=== PATIENT | female | born 1950 | race Caucasian/White ===

== ENCOUNTER 2017-07-16 10:16 | Inpatient (IN) ==
--- NOTE | 2017-07-16 10:59 | XRay Report ---
CLINICAL INFORMATION: Cough COMPARISON: 11/22/2016 FINDINGS: Heart size and mediastinum are unremarkable. Central pulmonary arteries are mildly enlarged suggesting pulmonary hypertension related to COPD. Right thoracotomy changes again noted There is moderate patchy airspace disease in the periphery of both lungs which is similar to the previous study seven months prior therefore likely fibrosis. Superimposed infection in the right upper lobe is possible. IMPRESSION: COPD changes with peripheral fibrosis throughout both lungs with possible superimposed infiltrate in right upper lobe. Consider repeat chest CT to compare to 2015 study to reassess the burden of parenchymal disease and the possibility of acute infiltrate. Interpreted and Authenticated by: Guille Alejandro 07/16/17
[2017-07-16] MEDS ORDERED: methylPREDNISolone SOD SUCC 125 MG/2 ML VIAL IV ONE (11:18)
[2017-07-16] MEDS ORDERED: IPRATROPIUM/ALBUTEROL 3 ML AMPUL.NEB NEB ONE ×2 (11:18→12:29)
[2017-07-16] MEDS ORDERED: LACTATED RINGERS 1,000 ML IV ONE (11:19)
[2017-07-16 11:22] LABS: Mean Cell Volume 89.3 fL (80.0-100.0); Mean Corpuscular Hemoglobin 30.4 pg (26.0-34.0); Platelet Count 371 K/mcL (140-440); RBC 4.68 M/mcL (4.00-5.20); Red Cell Distribution Width 14.4 % (11.5-14.5)
--- NOTE | 2017-07-16 11:22 | Emergency Department Note ---
SOB HPI - General Chief Complaint: Shortness of Breath/Dyspnea Stated Complaint: SOB worse last 4 days Time Seen by Provider: 07/16/17 10:55 Source: patient Mode of arrival: ambulatory Limitations: no limitations - History of Present Illness 58-year-old female with a history of Mycobacterium avium intracellulare infection about 30 years ago with subsequent shortness of breath that has been progressively getting worse over the course of the last 4 months, worse, so in the last 4 days. She feels like there is tightness of her chest, she feels like there is heaviness of her chest and she's having a difficult time breathing. Her O2 sats are still 96%, however, she is tachypneic and winded with any type of activity. She does have a history of pulmonary fibrosis, is being followed by the tightener [place] , Denies any productive phlegm, is occasionally bringing up some blood-tinged whitish sputum. She does have a best as well. History of Pseudomonas respiratory bronchiectasis. Exposed to passive smoke greater 10 years in the past.no fevers reported, she denies nausea, vomiting, denies cardiac issues. She never smoked . History of pulmonary fibrosis. MD Complaint: shortness of breath - Related Data Home Medications Medication Instructions Recorded Confirmed aspirin 81 mg tablet,delayed 81 mg PO QDAY tab 04/01/15 05/12/17 release fluticasone 500 mcg-salmeterol 50 2 inh INHALATION Q12H each 04/01/15 05/12/17 mcg/dose blistr powdr for inhalation ipratropium-albuterol 0.5 mg-3 3 ml INHALATION BID ml 04/01/15 05/12/17 mg(2.5 mg base)/3 mL nebulization soln predniSONE [Prednisone] 5 mg PO DAILY 08/19/15 05/12/17 tobramycin 300 mg/4 mL solution 300 mg INHALATION BID 08/05/16 05/12/17 for nebulization ciprofloxacin 500 mg tablet 500 mg PO Q12H 04/14/17 05/12/17 Previous Rx's Medication Instructions Recorded dextromethorphan-guaifenesin 10 10 ml PO Q4H PRN #240 ml 12/26/15 mg-100 mg/5 mL syrup hydrocortisone 1 % topical cream 1 applic TOPICAL BID #28 g 11/21/16 hydrochlorothiazide 12.5 mg tablet 12.5 mg PO QDAY #30 tab 12/17/16 lansoprazole 30 mg capsule,delayed 30 mg PO QDAY 90 Days 03/18/17 release hydrocortisone 2.5 % topical cream 1 applic TOPICAL BID-QID PRN #30 g 04/14/17 NS trazodone 50 mg tablet 50 mg PO QHS PRN #90 tab 06/12/17 Allergies Allergy/AdvReac Type Severity Reaction Status Date / Time aztreonam [From Azactam] Allergy Unknown Unknown Verified 05/12/17 16:47 budesonide [From Pulmicort] Allergy Unknown Unknown Verified 05/12/17 16:47 Diclofenac [From Voltaren] Allergy Unknown Rash Verified 05/12/17 16:47 doxycycline Allergy Unknown Rash Verified 05/12/17 16:47 Erythromycin Base Allergy Unknown Rash Verified 05/12/17 16:47 levofloxacin [From Levaquin] Allergy Unknown Rash Verified 05/12/17 16:47 lorazepam [From Ativan] Allergy Unknown Rash Verified 05/12/17 16:47 moxifloxacin [From Avelox] Allergy Unknown Unknown Verified 05/12/17 16:47 Penicillins Allergy Unknown Hives Verified 05/12/17 16:47 Sulfa (Sulfonamide Allergy Unknown Unknown Verified 05/12/17 16:47 Antibiotics) sulfamethoxazole Allergy Unknown Rash Verified 05/12/17 16:47 [From Septra] trimethoprim [From Septra] Allergy Unknown Rash Verified 05/12/17 16:47 Review of Systems All systems ED: reviewed and negative except as stated. Past Medical History - Past Medical History Source: nursing notes reviewed Medical history: Reports: COPD, other (recurrent bronchiectasis, 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) Surgical history ED: Reports: non-contributory Family history: Reports: no significant family history - Social History smoking status: Former smoker Alcohol use: Reports: None Physical Exam - General Limitations: no limitations General appearance: alert, in no apparent distress - Head Head exam: atraumatic - Eye Eye exam: Present: normal appearance, PERRL, EOMI - ENT ENT exam: normal exam, normal oropharynx, mucous membranes moist, TM's normal bilaterally - Neck Neck exam: Present: normal inspection, full ROM - Chest Chest inspection: Present: normal inspection - Respiratory Respiratory exam: Present: respiratory distress, wheezes - Cardiovascular Cardiovascular exam: Present: regular rate, normal heart sounds - Abdominal Exam Abdominal exam: Present: soft. Absent: distention - Extremities Exam Extremities exam: Present: normal inspection - Neurological Exam Neurological exam: Present: alert, oriented X3 - Psychiatric Psychiatric exam: Present: normal affect - Skin Skin exam: Present: warm, dry, intact Course Vital Signs Temperature 98.0 F 07/16/17 10:17 Pulse Rate 76 07/16/17 10:17 Respiratory Rate 22 07/16/17 10:17 Blood Pressure 126/60 07/16/17 10:17 Pulse Oximetry (%) 96 07/16/17 10:17 Temperature 98.0 F 07/16/17 10:17 Pulse Rate 70 07/16/17 12:34 Respiratory Rate 24 H 07/16/17 12:34 Blood Pressure 121/62 07/16/17 12:31 Pulse Oximetry (%) 92 07/16/17 12:34 Shortness of Breath/Dyspnea - MDM Narrative Medical decision making narrative: Her white blood cell count was 18,000, chest x-ray consistent with pulmonary fibrosis, her peak flow was only 130 with significant wheezing. We did start on Solu-Medrol as well as breathing treatments, this point she will need to be hospitalized for COPD exacerbation. Her troponin was negative, proBNP slightly elevated. - Lab Data Result diagrams: 07/16/17 10:42 07/16/17 10:42 Lab Results 07/16/17 07/16/17 07/16/17 Range/Units 10:42 10:42 10:42 WBC 18.3 H (4.5-11.0) K/mcL RBC 4.68 (4.00-5.20) M/mcL Hgb 14.2 (12.0-15.0) g/dL Hct 41.8 (36.0-48.0) % MCV 89.3 (80.0-100.0) fL MCH 30.4 (26.0-34.0) pg MCHC 34.0 (31.0-36.0) g/dL RDW 14.4 (11.5-14.5) % Plt Count 371 (140-440) K/mcL MPV 8.4 (7.4-10.4) fL Total Counted 100 Seg Neutrophils % 90 H (38-78) % Band Neutrophils % 4 (0-10) % Lymphocytes % 4 L (15-49) % Monocytes % (Manual) 1 (1-12) % Eosinophils % (Manual) 1 (0-7) % WBC Morphology Abnorm A (NORMAL) Toxic Granulation Few A (NONE SEEN) Platelet Estimate Normal (NORMAL) RBC Morphology Normal (NORMAL) Sodium 133 (133-145) mmol/L Potassium 3.4 (3.3-5.1) mmol/L Chloride 97 (96-108) mmol/L Carbon Dioxide 21 L (22-30) mmol/L Anion Gap 15.0 (8-16) BUN 14 (8-23) mg/dl Creatinine 0.9 (0.6-1.1) mg/dl GFR Calculation 66 Glucose 125 H (70-105) mg/dL Calcium 9.0 (8.6-10.4) mg/dl Total Bilirubin 0.5 (0.0-1.0) mg/dL AST 11 (0-37) U/l ALT 8 (0-40) U/l Alkaline Phosphatase 42 (39-117) U/L Troponin T < 0.01 (0-0.03) ng/ml C-Reactive Protein 4.4 H (0.0-0.8) mg/dl NT-Pro-B Natriuret Pep (0-125) pg/ml Total Protein 6.5 (5.9-8.4) gm/dL Albumin 3.9 (3.2-5.2) gm/dL Globulin 2.6 (2.2-3.7) gm/dL Albumin/Globulin Ratio 1.5 (1.0-2.3) 07/16/17 Range/Units 10:42 WBC (4.5-11.0) K/mcL RBC (4.00-5.20) M/mcL Hgb (12.0-15.0) g/dL Hct (36.0-48.0) % MCV (80.0-100.0) fL MCH (26.0-34.0) pg MCHC (31.0-36.0) g/dL RDW (11.5-14.5) % Plt Count (140-440) K/mcL MPV (7.4-10.4) fL Total Counted Seg Neutrophils % (38-78) % Band Neutrophils % (0-10) % Lymphocytes % (15-49) % Monocytes % (Manual) (1-12) % Eosinophils % (Manual) (0-7) % WBC Morphology (NORMAL) Toxic Granulation (NONE SEEN) Platelet Estimate (NORMAL) RBC Morphology (NORMAL) Sodium (133-145) mmol/L Potassium (3.3-5.1) mmol/L Chloride (96-108) mmol/L Carbon Dioxide (22-30) mmol/L Anion Gap (8-16) BUN (8-23) mg/dl Creatinine (0.6-1.1) mg/dl GFR Calculation Glucose (70-105) mg/dL Calcium (8.6-10.4) mg/dl Total Bilirubin (0.0-1.0) mg/dL AST (0-37) U/l ALT (0-40) U/l Alkaline Phosphatase (39-117) U/L Troponin T (0-0.03) ng/ml C-Reactive Protein (0.0-0.8) mg/dl NT-Pro-B Natriuret Pep 844.4 H (0-125) pg/ml Total Protein (5.9-8.4) gm/dL Albumin (3.2-5.2) gm/dL Globulin (2.2-3.7) gm/dL Albumin/Globulin Ratio (1.0-2.3) Disposition Pt seen by CUSTOMER SUPPORT ANALYST/PA only: No Clinical Impression: Acute exacerbation of chronic obstructive airways disease, Cough Disposition: Xfer As Inpt ([facility]) Condition: Fair Referrals: Brooklynn Noble DO [Primary Care Provider] -
[2017-07-16] MEDS ORDERED: LACTATED RINGERS 1,000 ML IV SCH (11:30)
[2017-07-16 11:44] LABS: ALT/SGPT 8 U/l (0-40); Albumin 3.9 gm/dL (3.2-5.2); Albumin/Globulin Ratio 1.5 (1.0-2.3); Alkaline Phosphatase 42 U/L (39-117); Blood Urea Nitrogen 14 mg/dl (8-23); C-Reactive Protein 4.4 mg/dl (0.0-0.8)
[2017-07-16 11:54] LABS: Band Neutrophils % 4 % (0-10); Eosinophils % (Manual) 1 % (0-7); Lymphocytes % 4 % (15-49); Monocytes % (Manual) 1 % (1-12); Platelet Estimate NORMAL (NORMAL); RBC Morphology NORMAL (NORMAL); Segmented Neutrophils % 90 % (38-78); Toxic Granulation FEW (NONE SEEN)
[2017-07-16 11:56] LABS: proBNP 844.4 pg/ml (0-125)
[2017-07-16] MEDS ORDERED: LEVOFLOXACIN 500 MG/100 ML BAG IV ONE (12:43)
[2017-07-16] MEDS ORDERED: AZITHROMYCIN 500 MG in DEXTROSE 5% IN WATER 250 ML IV ONE (13:12)
[2017-07-16] MEDS ORDERED: cefTRIAXone 1 GM in DEXTROSE 5% IN WATER 50 ML IV ONE (13:12)
--- NOTE | 2017-07-16 13:51 | Internal Med History&Physical ---
Medical - H&P: HPI Patient information: Note initiated : 07/16/17 at 1:46 pm Patient: Samanta Christopher 66 y/o F admitted on for SOB, Worse Last 4 Days. History of present illness: Ms. Christopher is a 66 year old female with a distant history of Mycobacterium avium infection, leading to chronic bronchiectasis. She has also previously been diagnosed with Pseudomonas pneumonia as well as aspergillosis. She was in her normal state of health until sometime in March of this year, when she started to have more trouble with her breathing. She says it seems like her breathing is gradually gotten worse over the course of the summer, and then 4 days ago has gotten quite severe. She reports severe dyspnea with exertion, to the point where she is just afraid to move at all. She says she does not have as much trouble breathing lying down, but notes that she takes trazodone to help her sleep. Almost every night now she is waking up during the night with coughing spells. She and her both say that she was so short of breath today, that she felt like she was just going to stop breathing altogether. [place] the [place] was really hard on her, so she spent most of her time indoors. She denies any recent fever. She only occasionally feels chilled. She says in the past if she has had Pseudomonas, she has very frequent chills. She does have a headache with coughing, and she and her both say that she has been coughing constantly. The cough is minimally productive, although this morning she did bring up some blood-streaked sputum. In the emergency room she was found to be severely dyspneic, although not overtly hypoxic. She has marked leukocytosis. BNP is also elevated at about 7 times normal. CRP is elevated. Otherwise, she denies dizziness, new eye or ear symptoms. She does have some sinus congestion and postnasal drip. She denies swollen glands, chest pain or palpitations, abdominal pain, nausea or vomiting, diarrhea or constipation, dysuria. Medical History Rectal bleeding (Acute) Acid reflux (Chronic) Allergic bronchopulmonary aspergillosis (Chronic) Allergic rhinitis (Chronic) Arthritis (Chronic) 03/26/2014 Asthma (Chronic) 03/26/2014 Atherosclerosis, generalized (Chronic) Bronchiectasis (Chronic) CF testing negative 2. COPD (chronic obstructive pulmonary disease) (Chronic) Hyperlipidemia (Chronic) Hypertension (Chronic) Impaired fasting glucose (Chronic) Osteoporosis (Chronic) 06/24/2013 Tuberculosis, pulmonary (Resolved) M-Avium Adenomatous polyp (Inactive) With high grade dyslplasia near syncope (Inactive) acute episode likely from amlodipine, but hr was 52, and presyncope was releated to some activity. symptoms have since resolve,d and pt has no pedal edema, no loud p2, plan to monitor. Get echo if symptoms recur to r/o Pulmonary hypertension. Osteopenia (Inactive) 04/27/2014 Pneumonia (Inactive) Pseudomonas infection. Aspergillosis. Symptomatic menopausal or female climacteric states (Inactive) 01/05/2014 Wheezing (Inactive) Surgical History History of colonoscopy (Inactive) 06/09/2014 - Dr. Booker History of esophagogastroduodenoscopy (Inactive) 12/07/2009 History of lung biopsy (Inactive) 1985, 1986 S/P partial hysterectomy (Inactive) Ovaries retained Medication List aspirin 81 mg PO QDAY dextromethorphan-guaifenesin 10-100 mg/5 mL 10 mL PO Q4H PRN fluticasone-salmeterol 500-50 mcg/dose 2 inhalations Inhalation Q12H hydrochlorothiazide 12.5 mg PO QDAY hydrocortisone 1% (Anti-Itch (hydrocortisone)) 1 applic Topical BID hydrocortisone 2.5% 1 applic Topical BID-QID PRN NS ipratropium-albuterol 0.5 mg-3 mg(2.5 mg base)/3 mL 3 mL Inhalation BID Saline nebs twice daily. Percussion vest generally used 1-2 times a day. lansoprazole (Prevacid) 30 mg PO QDAY 90 days prednisone 5 mg PO DAILY trazodone 50 mg PO QHS 90 days PRN Allergies/Adverse Reactions aztreonam [From Azactam] Allergy (Unknown, Verified 05/12/17 16:47) Unknown budesonide [From Pulmicort] Allergy (Unknown, Verified 05/12/17 16:47) Unknown Diclofenac [From Voltaren] Allergy (Unknown, Verified 05/12/17 16:47) Rash doxycycline Allergy (Unknown, Verified 05/12/17 16:47) Rash Erythromycin Base Allergy (Unknown, Verified 05/12/17 16:47) Rash levofloxacin [From Levaquin] Allergy (Unknown, Verified 05/12/17 16:47) Rash lorazepam [From Ativan] Allergy (Unknown, Verified 05/12/17 16:47) Rash moxifloxacin [From Avelox] Allergy (Unknown, Verified 05/12/17 16:47) Unknown Penicillins Allergy (Unknown, Verified 05/12/17 16:47) Hives Sulfa (Sulfonamide Antibiotics) Allergy (Unknown, Verified 05/12/17 16:47) Unknown sulfamethoxazole [From Septra] Allergy (Unknown, Verified 05/12/17 16:47) Rash trimethoprim [From Septra] Allergy (Unknown, Verified 05/12/17 16:47) Rash Family History Father Essential hypertension Mother Malignant neoplasm of breast Grandmother Malignant neoplasm of liver Cerebrovascular accident Maternal/Paternal Social History The patient says she smoked for 1 year in college, and has not smoked since then , but apparently did live with a smoker for a number of years. She drinks alcohol only occasionally. She does not use drugs. She now lives with her second . Between them they have 4 children. None of them live in town. She does not think she has ever done a living will. Medical - H&P: Meds Home Medications Medication Instructions Recorded Confirmed Type aspirin 81 mg tablet,delayed 81 mg PO QDAY tab 04/01/15 07/16/17 History release fluticasone 500 mcg-salmeterol 50 2 inh INHALATION Q12H each 04/01/15 07/16/17 History mcg/dose blistr powdr for inhalation ipratropium-albuterol 0.5 mg-3 3 ml INHALATION BID ml 04/01/15 07/16/17 History mg(2.5 mg base)/3 mL nebulization soln predniSONE [Prednisone] 5 mg PO DAILY 08/19/15 07/16/17 History dextromethorphan-guaifenesin 10 10 ml PO Q4H PRN #240 ml 12/26/15 07/16/17 Rx mg-100 mg/5 mL syrup hydrocortisone 1 % topical cream 1 applic TOPICAL BID #28 g 11/21/16 07/16/17 Rx hydrochlorothiazide 12.5 mg tablet 12.5 mg PO QDAY #30 tab 12/17/16 07/16/17 Rx lansoprazole 30 mg capsule,delayed 30 mg PO QDAY 90 Days 03/18/17 07/16/17 Rx release hydrocortisone 2.5 % topical cream 1 applic TOPICAL BID-QID PRN #30 g 04/14/17 07/16/17 Rx NS trazodone 50 mg tablet 50 mg PO QHS PRN #90 tab 06/12/17 07/16/17 Rx Allergies Allergy/AdvReac Type Severity Reaction Status Date / Time aztreonam [From Azactam] Allergy Unknown Unknown Verified 05/12/17 16:47 budesonide [From Pulmicort] Allergy Unknown Unknown Verified 05/12/17 16:47 Diclofenac [From Voltaren] Allergy Unknown Rash Verified 05/12/17 16:47 doxycycline Allergy Unknown Rash Verified 05/12/17 16:47 Erythromycin Base Allergy Unknown Rash Verified 05/12/17 16:47 levofloxacin [From Levaquin] Allergy Unknown Rash Verified 05/12/17 16:47 lorazepam [From Ativan] Allergy Unknown Rash Verified 05/12/17 16:47 moxifloxacin [From Avelox] Allergy Unknown Unknown Verified 05/12/17 16:47 Penicillins Allergy Unknown Hives Verified 05/12/17 16:47 Sulfa (Sulfonamide Allergy Unknown Unknown Verified 05/12/17 16:47 Antibiotics) sulfamethoxazole Allergy Unknown Rash Verified 05/12/17 16:47 [From Septra] trimethoprim [From Septra] Allergy Unknown Rash Verified 05/12/17 16:47 Medical - H&P: Exam - Constitutional Vitals: Temp Pulse Resp BP Pulse Ox 98.0 F 75 21 122/60 97 07/16/17 10:17 07/16/17 13:12 07/16/17 13:12 07/16/17 12:46 07/16/17 13:12 Respirations range from a rate of 13-26, and are very labored at times. However O2 saturations are 96% on room air. Patient is a very slender, somewhat frail-appearing female, who seems rather indecisive about how aggressive she wants her care to be. Head: Normocephalic, atraumatic. Eyes: PERRLA, EOMI, anicteric. Ears: TMs and canals are clear. Pharynx: Is clear. Teeth are in good repair. Neck: Is supple, without lymphadenopathy, JVD, thyromegaly, bruits. Cardiac exam: Shows regular rate and rhythm with normal S1 and S2, without murmurs, rubs, gallops. Lungs: She has diffuse soft wheezes throughout both lung valerio. She has minimal accessory muscle use at this time. No definite crackles or rhonchi are noted. Abdomen: Is soft and nontender with no obvious masses. Bowel sounds are active. Extremities: Show no cyanosis, clubbing, edema. Skin exam: Does not show rashes or other worrisome lesions. Neurologic exam: Is grossly nonfocal. Medical - H&P: Reslt - Labs CBC & Chem 7: 07/16/17 10:42 07/16/17 10:42 Labs: Short CBC 07/16/17 Range/Units 10:42 WBC 18.3 H (4.5-11.0) K/mcL Hgb 14.2 (12.0-15.0) g/dL Hct 41.8 (36.0-48.0) % Plt Count 371 (140-440) K/mcL BMP 07/16/17 10:42 Sodium 133 Potassium 3.4 Chloride 97 Carbon Dioxide 21 L BUN 14 Creatinine 0.9 Glucose 125 H Calcium 9.0 Cardiac Enzymes 07/16/17 Range/Units 10:42 Troponin T < 0.01 (0-0.03) ng/ml Liver Function 07/16/17 Range/Units 10:42 Total Bilirubin 0.5 (0.0-1.0) mg/dL AST 11 (0-37) U/l ALT 8 (0-40) U/l Alkaline Phosphatase 42 (39-117) U/L Albumin 3.9 (3.2-5.2) gm/dL July 16: CBC: White blood cell count 18,300, hemoglobin 14, hematocrit 41, 90% neutrophils, a few toxic granulations. Chemistry panel: Notable for bicarb of 21, glucose 125 CRP is elevated at 4.4 BNP is elevated at 844 Chest x-ray: COPD changes with peripheral fibrosis throughout both lungs with possible superimposed infiltrate in the right upper lobe. Consider repeat chest CT to reassess burden of parenchymal disease and acute infiltrate. Next EKG: Shows normal sinus rhythm with a rate of about 70, normal axis, no acute ST -T changes. Medical - H&P: A/P (1) Acute exacerbation of chronic obstructive airways disease Current visit: Yes Status: Acute (2) Bronchiectasis Current visit: No Status: Chronic (3) Hypertension Current visit: No Status: Chronic (4) Dyspnea Current visit: No Status: Chronic - Narrative A/P Narrative: #1. Pulmonary/infectious disease. Patient presents with worsening dyspnea, and depressed peak flow. She may just have a COPD exacerbation, or worsening of her bronchiectasis and pulmonary fibrosis, or superimposed infection. Chest x-ray does suggest new right upper lobe infiltrate. Patient also presents with significant leukocytosis and elevated BNP. -Admit to telemetry for closer monitoring. -Blood and sputum cultures. -Cover empirically with Zithromax for atypicals, and cefepime for broad coverage including Pseudomonas. -Duo nebs, as needed albuterol, oxygen as needed. -IV steroids. -Check follow-up ABG, d-dimer. Consider follow-up chest CT. -They can bring in her percussion vest from home to use here. -I will try to contact her language interpreter, Dr. Greg Tobias in [place], [place] - 2. Cardiac. Patient presents with dyspnea and elevated BNP. She does have some risk factors for coronary disease. -Consider echocardiogram if she has not had one recently. 3. CODE STATUS: It sounds like her wants her to be full code for the time being, and the patient is just not really willing to make a definite decision. Her will act as her POA. 4. DVT prophylaxis: Subcu Lovenox 5. History of hypertension. Continue HCTZ. Continue aspirin. 6. Hyperlipidemia. 7. History of impaired fasting glucose. 8. History of osteoporosis. 9. GI. History of GERD. Continue Prevacid. 10. History of insomnia. Continue as needed trazodone. Approximately 60 minutes was spent this evening, reviewing the patient's case with the ER MD, reviewing her records and test results, interviewing and examining her, reviewing plan of care with the patient and her , and writing orders.
[2017-07-16] MEDS ORDERED: ALBUTEROL SULFATE 2.5 MG/3 ML NEBULIZER NEB PRN (15:24)
[2017-07-16] MEDS ORDERED: ACETAMINOPHEN 325 MG TABLET PO PRN (15:24)
[2017-07-16] MEDS ORDERED: IMIPENEM/CILASTATIN SODIUM 500 MG in 0.9 % SODIUM CHLORIDE 100 ML IV SCH (15:24)
[2017-07-16] MEDS ORDERED: DOCUSATE SODIUM 100 MG CAPSULE PO PRN (15:24)
[2017-07-16] MEDS ORDERED: ONDANSETRON 4 MG/2 ML VIAL IV PRN (15:24)
[2017-07-16] MEDS ORDERED: MAGNESIUM HYDROXIDE 30 ML ORAL.SUSP PO PRN (15:24)
[2017-07-16] MEDS ORDERED: traZODone HCL 50 MG TABLET PO PRN (16:07)
[2017-07-16] MEDS ORDERED: HYDROCORTISONE CRM 2.5% TUBE 30GM TOPICAL PRN (16:07)
[2017-07-16] MEDS ORDERED: guaiFENesin/DEXTROMETHORPHAN ORAL SOL PO PRN (16:11)
[2017-07-16] MEDS: CEFEPIME 1 GM in DEXTROSE 5% IN WATER 50 ML IV SCH ×2 (17:39→21:22)
[2017-07-16] MEDS: BUDESONIDE 0.5 MG/2 ML AMPUL.NEB NEB SCH (19:34)
[2017-07-16] MEDS: IPRATROPIUM/ALBUTEROL 3 ML AMPUL.NEB NEB SCH (19:34)
[2017-07-16] MEDS: methylPREDNISolone SOD SUCC 125 MG/2 ML VIAL IV SCH (21:22)
[2017-07-17] MEDS: IPRATROPIUM/ALBUTEROL 3 ML AMPUL.NEB NEB SCH ×4 (00:15→20:30)
[2017-07-17 05:40] LABS: Basophils # (Auto) 0 K/mcL (0.0-0.3); Basophils % (Auto) 0 % (0.0-2.0); Eosinophils # (Auto) 0 K/mcL (0.0-0.7); Eosinophils % (Auto) 0 % (0.0-7.0); Granulocytes % (Auto) 94.3 % (38.0-78.0); Lymphocytes # (Auto) 0.6 K/mcL (1.5-4.8); Lymphocytes % (Auto) 4.7 % (15.5-49.0); Mean Cell Volume 89.9 fL (80.0-100.0); Mean Corpuscular HGB Conc 33.4 g/dL (31.0-36.0); Monocytes # (Auto) 0.1 K/mcL (0.1-0.9); Platelet Count 371 K/mcL (140-440); RBC 4.69 M/mcL (4.00-5.20); Red Cell Distribution Width 14.6 % (11.5-14.5)
[2017-07-17 05:54] LABS: ALT/SGPT 6 U/l (0-40); Albumin 3.7 gm/dL (3.2-5.2); Albumin/Globulin Ratio 1.3 (1.0-2.3); Alkaline Phosphatase 42 U/L (39-117); Bilirubin,Direct < 0.2 mg/dL (0.0-0.3); Blood Urea Nitrogen 13 mg/dl (8-23); Gamma Glutamyl Transpeptidase 10 U/L (5-36); Magnesium 2.3 mg/dL (1.6-2.5); Uric Acid 3.2 mg/dL (2.5-8.0)
[2017-07-17] MEDS: CEFEPIME 1 GM in DEXTROSE 5% IN WATER 50 ML IV SCH ×3 (05:55→21:25)
--- NOTE | 2017-07-17 06:47 | XRay Report ---
CLINICAL INFORMATION: Dyspnea COMPARISON: 07/16/2017 FINDINGS: Heart size and mediastinum are normal. Mild enlargement central pulmonary arteries suggesting pulmonary hypertension related to COPD noted. Scattered fibrotic changes in the periphery of both lungs again noted. There is no definite superimposed right upper lobe infiltrate IMPRESSION: COPD changes with patchy peripheral fibrosis demonstrating long-term stability. No definite superimposed acute infiltrate Interpreted and Authenticated by: Guille Alejandro 07/17/17
[2017-07-17] MEDS ORDERED: PANTOPRAZOLE 40 MG TABLET PO SCH (07:30)
[2017-07-17] MEDS: BUDESONIDE 0.5 MG/2 ML AMPUL.NEB NEB SCH ×2 (07:35→20:31)
[2017-07-17] MEDS: methylPREDNISolone SOD SUCC 125 MG/2 ML VIAL IV SCH ×3 (07:53→21:25)
[2017-07-17] MEDS ORDERED: POTASSIUM CHLORIDE 20 MEQ TABLET PO SCH (08:00)
[2017-07-17] MEDS ORDERED: ENOXAPARIN 40 MG/0.4 ML SYRINGE SQ SCH (09:00)
[2017-07-17] MEDS ORDERED: HYDROCHLOROTHIAZIDE 12.5 MG CAPSULE PO SCH (09:00)
[2017-07-17] MEDS ORDERED: ASPIRIN 81 MG TAB.CHEW PO SCH (09:00)
[2017-07-17] MEDS ORDERED: AZITHROMYCIN 500 MG in DEXTROSE 5% IN WATER 250 ML IV SCH (10:00)
--- NOTE | 2017-07-17 10:30 | Internal Med Progress Note ---
Medical - PN: Subj Patient information: Note initiated : 07/17/17 at 10:30 am Patient: Samanta Christopher 66 y/o F admitted on 07/16/17 for SOB, Worse Last 4 Days. Interval history: July 16, 2017: History of present illness: Ms. Christopher is a 66 year old female with a distant history of Mycobacterium avium infection, leading to chronic bronchiectasis. She has also previously been diagnosed with Pseudomonas pneumonia as well as aspergillosis. She was in her normal state of health until sometime in March of this year, when she started to have more trouble with her breathing. She says it seems like her breathing is gradually gotten worse over the course of the summer, and then 4 days ago has gotten quite severe. She reports severe dyspnea with exertion, to the point where she is just afraid to move at all. She says she does not have as much trouble breathing lying down, but notes that she takes trazodone to help her sleep. Almost every night now she is waking up during the night with coughing spells. She and her both say that she was so short of breath today, that she felt like she was just going to stop breathing altogether. [place] the [place] was really hard on her, so she spent most of her time indoors. She denies any recent fever. She only occasionally feels chilled. She says in the past if she has had Pseudomonas, she has very frequent chills. She does have a headache with coughing, and she and her both say that she has been coughing constantly. The cough is minimally productive, although this morning she did bring up some blood-streaked sputum. In the emergency room she was found to be severely dyspneic, although not overtly hypoxic. She has marked leukocytosis. BNP is also elevated at about 7 times normal. CRP is elevated. Otherwise, she denies dizziness, new eye or ear symptoms. She does have some sinus congestion and postnasal drip. She denies swollen glands, chest pain or palpitations, abdominal pain, nausea or vomiting, diarrhea or constipation, dysuria. July 17: Today, the patient notes she is feeling less short of breath. She is still coughing, and says she rarely brings up just a tiny bit of phlegm. She feels a little more energetic today, but says that is likely due to the steroids. Her did bring in the percussion vest, so she has been using that as well. She was able to get up and walk in the hallway with physical therapy today, and reportedly did quite well, without significant dyspnea. Otherwise, she notes that she tends to feel warm, due to the steroids. She denies fever chills, chest pain or palpitations, GI or symptoms. - Constitutional Vitals: Vital Signs Temp Pulse Resp BP Pulse Ox 99.0 F H 76 20 122/68 97 07/17/17 08:07 07/17/17 08:07 07/17/17 08:07 07/17/17 08:07 07/17/17 08:07 Period Temp Pulse Resp BP Sys/Sow Pulse Ox Last 24 Hr 97.6 F-99.0 F 72-78 16-21 97-133/56-80 95-97 Intake and Output 07/16/17 07/17/17 07/17/17 21:59 05:59 13:59 Intake Total 300 / 1350 50 / 50 510 / 510 Output Total 600 / 600 650 / 650 250 / 250 Balance -300 / 750 -600 / -600 260 / 260 Weight 118 lb 14.4 oz Intake & Output: Intake & Output 07/16/17 07/17/17 07/17/17 21:59 05:59 13:59 Intake Total 300 / 1350 50 / 50 510 / 510 Output Total 600 / 600 650 / 650 250 / 250 Balance -300 / 750 -600 / -600 260 / 260 Weight 118 lb 14.4 oz Intake: IV 300 / 300 50 / 50 50 / 50 Zithromax 500 mg In 250 / 250 Dextrose 5% in Water 250 ml @ 250 mls/hr IV ONCE ONE Rx#:[id number] Maxipime 1 gm In Dextrose 50 / 50 50 / 50 50 / 50 5% in Water 50 ml @ 100 mls/hr IV Q8H [facility] Rx#: [id number] Oral 460 / 460 Output: Void Amount 600 / 600 650 / 650 250 / 250 Other: Meal Breakfast Percent of Meal Consumed 100% # Bowel Movements 1 T-max is 99.0 heart rate 86. Respiratory rate 20. Blood pressure 110/57. O2 saturation is 95-99% on room air. The patient is awake and alert, sitting up in bed. She seems a little bit anxious. Neck is supple without lymphadenopathy or JVD. Cardiac exam shows regular rate and rhythm. Lung exam shows diffuse soft wheezes in all lung valerio. No accessory muscle use is noted. Abdomen: Soft and nontender. Extremities show no edema. Neurologic exam is grossly nonfocal. Medical - PN: Obj Da - Labs CBC & Chem 7: 07/17/17 04:00 07/17/17 04:00 Labs: Abnormal Lab Results 07/17/17 07/17/17 04:00 04:00 WBC 13.8 H RDW 14.6 H Gran % 94.3 H Lymph % (Auto) 4.7 L Gran # 13.0 H Lymph # (Auto) 0.6 L Sodium 129 L Potassium 3.2 L Chloride 92 L Glucose 143 H July 17: Chest x-ray shows COPD changes with patchy peripheral fibrosis, without obvious acute infiltrate. July 16: Troponin is less than 0.012 ABG: On room air: PH 7.46, PCO2 32, PO2 79, bicarb 22, O2 saturation 96% Chest CT: Shows chronic bronchitis with extensive chronic tubular bronchiectasis with scattered interstitial fibrosis, overall with stable appearance since November 2014. No obvious superimposed infection. 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 Mild enlargement of the noncontrasted main pulmonary artery suggesting pulmonary hypertension. Nasal MRSA screen is negative. D-dimer is negative at less than 0.27 CBC: White blood cell count 18,300, hemoglobin 14, hematocrit 41, 90% neutrophils, a few toxic granulations. Chemistry panel: Notable for bicarb of 21, glucose 125 CRP is elevated at 4.4 BNP is elevated at 844 Chest x-ray: COPD changes with peripheral fibrosis throughout both lungs with possible superimposed infiltrate in the right upper lobe. Consider repeat chest CT to reassess burden of parenchymal disease and acute infiltrate. Next EKG: Shows normal sinus rhythm with a rate of about 70, normal axis, no acute ST -T changes. Meds: Medications Acetaminophen (Tylenol) 650 mg PO Q6HP PRN PRN Reason: PAIN/FEVER > 101 Last Admin: 07/17/17 06:39 Dose: 650 mg Albuterol Sulfate (Ventolin) 2.5 mg NEB Q4HRT PRN PRN Reason: Shortness Of Breath Or Wheezing Albuterol/Ipratropium (Duoneb) 3 ml NEB Q6HRT [facility] Last Admin: 07/17/17 07:35 Dose: 3 ml Aspirin (Aspirin) 81 mg PO DAILY [facility] Last Admin: 07/17/17 07:53 Dose: 81 mg Budesonide (Pulmicort) 0.5 mg NEB Q12 [facility] Last Admin: 07/17/17 07:35 Dose: 0.5 mg Docusate Sodium (Colace) 100 mg PO BID PRN PRN Reason: Constipation Enoxaparin Sodium (Lovenox) 40 mg SQ DAILY [facility] Last Admin: 07/17/17 07:53 Dose: 40 mg Guaifenesin (Robitussin Dm) 10 ml PO Q4HP PRN PRN Reason: Cough Hydrochlorothiazide (Oretic) 12.5 mg PO DAILY [facility] Last Admin: 07/17/17 07:53 Dose: 12.5 mg Hydrocortisone (Hc Crm 2.5%) 1 dose TOPICAL BID-QID PRN PRN Reason: anal pain Azithromycin 500 mg/ Dextrose 250 mls @ 250 mls/hr IV Q24H [facility] Stop: 07/19/17 10:59 Last Admin: 07/17/17 09:26 Dose: 250 mls/hr Cefepime HCl 1 gm/ Dextrose 50 mls @ 100 mls/hr IV Q8H [facility] Last Infusion: 07/17/17 09:26 Dose: Infused Magnesium Hydroxide (Milk Of Magnesia) 30 ml PO DAILYP PRN PRN Reason: Constipation Methylprednisolone Sodium Succinate (Solu-Medrol) 80 mg IV Q12 [facility] Last Admin: 07/17/17 07:53 Dose: 80 mg Ondansetron HCl (Zofran) 4 mg IV Q4HP PRN PRN Reason: Nausea And Vomiting Pantoprazole Sodium (Protonix) 40 mg PO QAMAC [facility] Last Admin: 07/17/17 07:26 Dose: 40 mg Potassium Chloride (Kdur) 20 meq PO BIDCC [facility] Last Admin: 07/17/17 07:53 Dose: 20 meq Trazodone HCl (Desyrel) 50 mg PO QHS PRN PRN Reason: insomnia Last Admin: 07/16/17 21:34 Dose: 50 mg Medical - PN: A/P - Time Spent With Patient Total time spent is greater than 50% in coordination of care (as documented) at patient's floor/unit and/or counseling patient: 25 - 35 minutes (1) Acute exacerbation of chronic obstructive airways disease Status: Acute Current Visit: Yes (2) Bronchiectasis Status: Chronic Current Visit: No (3) Hypertension Status: Chronic Current Visit: No (4) Dyspnea Status: Chronic Current Visit: No - Narrative A/P Narrative: #1. Pulmonary/infectious disease. Patient presents with worsening dyspnea, and depressed peak flow. She may just have a COPD exacerbation, or worsening of her bronchiectasis and pulmonary fibrosis, or superimposed infection. Chest x-ray does suggest new right upper lobe infiltrate. Patient also presents with significant leukocytosis and elevated BNP. -CT scan from last night, shows chronic bronchiectasis and fibrosis changes. Does not show definite new infiltrate. But does show pleural plaques, and also suggest pulmonary hypertension. I called her maid supervisor in [place], Dr. Tobias. I reviewed the case with him. He suspects this is more of a bronchiectasis exacerbation than pneumonia. He suggested keeping her on IV steroids for another day or so, and then put her on a very prolonged taper, starting with 40 mg a day 7 days, and then taper from there. He said we could probably discontinue IV antibiotics tomorrow. He strongly encouraged her to continue with her percussion vest at least twice a day every day, to help prevent exacerbations. He asked me to remind her that it took her a very long time to become sick, and she needs to remember that it will take just as long to get better, and she should try not to get frustrated. -Transfer to [facility] today, as she appears clinically stable. -Blood and sputum cultures are pending.. -Continue empiric Zithromax for atypicals, and cefepime for broad coverage including Pseudomonas, but probably discontinue tomorrow.. -Duo nebs, as needed albuterol, oxygen as needed. -IV steroids. -Continue percussion vest twice daily Case reviewed with Dr. Greg Tobias in [place], [place], of pulmonology. - 2. Cardiac. Patient presents with dyspnea and elevated BNP. She does have some risk factors for coronary disease. -Echocardiogram ordered, regarding possible pulmonary hypertension, and also elevated BNP. 3. CODE STATUS: It sounds like her wants her to be full code for the time being, and the patient is just not really willing to make a definite decision. Her will act as her POA. 4. DVT prophylaxis: Subcu Lovenox 5. History of hypertension. Continue HCTZ. Continue aspirin. 6. Hyperlipidemia. 7. History of impaired fasting glucose. 8. History of osteoporosis. Consider adding calcium and vitamin D supplementation, and also perhaps a multivitamin.. 9. GI. History of GERD. Continue Prevacid. 10. History of insomnia. Continue as needed trazodone. #11. Renal. Sodium and potassium are a bit low today. Because of this is uncertain. Replace potassium orally. Continue to monitor. This visit is taken approximately 35 minutes so far today, to review her test results, interview and examine her, review her case in detail with pulmonary, and write orders. Medical - PN: Qual - VTE Deep Vein Thrombosis/Pulmonary Embolism Present on Admission: No
[2017-07-17] MEDS ORDERED: guaiFENesin/DEXTROMETHORPHAN ORAL SOL PO PRN (11:51)
[2017-07-17] MEDS ORDERED: MAGNESIUM HYDROXIDE 30 ML ORAL.SUSP PO PRN (11:51)
[2017-07-17] MEDS ORDERED: ONDANSETRON 4 MG/2 ML VIAL IV PRN (11:51)
[2017-07-17] MEDS ORDERED: DOCUSATE SODIUM 100 MG CAPSULE PO PRN (11:51)
[2017-07-17] MEDS ORDERED: HYDROCORTISONE CRM 2.5% TUBE 30GM TOPICAL PRN (11:51)
[2017-07-17] MEDS ORDERED: traZODone HCL 50 MG TABLET PO PRN (11:51)
[2017-07-17] MEDS ORDERED: ALBUTEROL SULFATE 2.5 MG/3 ML NEBULIZER NEB PRN (11:51)
--- NOTE | 2017-07-17 12:05 | Cat Scan Report ---
CLINICAL INFORMATION: Dyspnea with known chronic Bronchiectasis. Evaluate for acute infiltrate COMPARISON: Chest CT from two years prior 08/29/2015 TECHNIQUE: 2.5 mm axial slices were obtained from the lung apices through the bases without intravenous contrast. Sagittal, coronal and axial reformatted images were processed and reviewed at bone, lung and soft tissue windows. 7 mm axial MIP images were also reconstructed. FINDINGS: Chronic bronchitis with extensive tubular bronchiectasis involving the segmental and subsegmental bronchi of both upper, right middle and lower lobes with scattered chronic peripheral tree-in-bud densities and nonspecific scarring - most prominent in the right upper lobe is again noted. The exam was very carefully compared to the the two prior chest CTs and there has been no significant change. There is no evidence of superimposed acute infiltrate. Scattered noncalcified pleural plaques throughout both lungs is unchanged - this can indicate prior asbestos exposure. Mediastinal windows show the noncontrasted thoracic aorta to be normal in contour and caliber. The central pulmonary arteries mildly enlarged: main pulmonary artery measuring 3 cm suggesting pulmonary hypertension related to chronic lung disease. There are no abnormal lymph nodes in the mediastinal hilar or axillary regions. Esophagus is normal. Thyroid is unremarkable. Bones and soft tissues the chest wall are normal IMPRESSION: 1. Chronic bronchitis with extensive chronic tubular bronchiectasis involving segmental and subsegmental bronchi of both upper, lower and right middle lobes with scattered nonspecific interstitial fibrosis all maintaining stability over two year (chest CT 12/01/2014) . There is no superimposed infection or other change 2. Scattered pleural plaque in both lungs also stable. This suggests possible asbestos exposure 3. Mild enlargement of the noncontrasted main pulmonary artery suggesting pulmonary hypertension related to chronic lung disease Interpreted and Authenticated by: Guille Alejandro 07/17/17
[2017-07-17] MEDS: ACETAMINOPHEN 325 MG TABLET PO PRN ×2 (12:25→21:37)
[2017-07-17] MEDS ORDERED: methylPREDNISolone SOD SUCC 125 MG/2 ML VIAL IV SCH ×2 (13:45→21:00)
[2017-07-17] MEDS: POTASSIUM CHLORIDE 20 MEQ TABLET PO SCH (18:22)
[2017-07-17] MEDS ORDERED: ZOLPIDEM 5 MG TABLET PO PRN (19:45)
[2017-07-17] MEDS ORDERED: diphenhydrAMINE 25 MG CAPSULE PO PRN (19:46)
[2017-07-17] MEDS: CALCIUM W/VIT D3 500 MG TABLET PO SCH (21:37)
[2017-07-18] MEDS: IPRATROPIUM/ALBUTEROL 3 ML AMPUL.NEB NEB SCH ×2 (02:11→07:15)
[2017-07-18] MEDS: CEFEPIME 1 GM in DEXTROSE 5% IN WATER 50 ML IV SCH (05:20)
[2017-07-18] MEDS: methylPREDNISolone SOD SUCC 125 MG/2 ML VIAL IV SCH (05:20)
[2017-07-18 05:40] LABS: Basophils # (Auto) 0 K/mcL (0.0-0.3); Basophils % (Auto) 0 % (0.0-2.0); Eosinophils # (Auto) 0 K/mcL (0.0-0.7); Eosinophils % (Auto) 0 % (0.0-7.0); Granulocytes % (Auto) 94.2 % (38.0-78.0); Lymphocytes # (Auto) 0.7 K/mcL (1.5-4.8); Lymphocytes % (Auto) 4.3 % (15.5-49.0); Mean Cell Volume 89.8 fL (80.0-100.0); Mean Corpuscular HGB Conc 33.4 g/dL (31.0-36.0); Monocytes # (Auto) 0.2 K/mcL (0.1-0.9); Monocytes % (Auto) 1.5 % (1.0-12.0); Platelet Count 400 K/mcL (140-440); RBC 4.72 M/mcL (4.00-5.20); Red Cell Distribution Width 14.6 % (11.5-14.5)
[2017-07-18 06:03] LABS: ALT/SGPT 9 U/l (0-40); Albumin 3.6 gm/dL (3.2-5.2); Albumin/Globulin Ratio 1.3 (1.0-2.3); Alkaline Phosphatase 39 U/L (39-117); Bilirubin,Direct < 0.2 mg/dL (0.0-0.3); Blood Urea Nitrogen 15 mg/dl (8-23); Gamma Glutamyl Transpeptidase 10 U/L (5-36); Magnesium 2.3 mg/dL (1.6-2.5); Uric Acid 2.4 mg/dL (2.5-8.0)
[2017-07-18] MEDS: BUDESONIDE 0.5 MG/2 ML AMPUL.NEB NEB SCH (07:15)
[2017-07-18] MEDS ORDERED: PANTOPRAZOLE 40 MG TABLET PO SCH (07:30)
[2017-07-18] MEDS: POTASSIUM CHLORIDE 20 MEQ TABLET PO SCH (08:17)
[2017-07-18] MEDS: CALCIUM W/VIT D3 500 MG TABLET PO SCH (08:18)
[2017-07-18] MEDS ORDERED: HYDROCHLOROTHIAZIDE 12.5 MG CAPSULE PO SCH (09:00)
[2017-07-18] MEDS ORDERED: ASPIRIN 81 MG TAB.CHEW PO SCH (09:00)
[2017-07-18] MEDS ORDERED: ENOXAPARIN 40 MG/0.4 ML SYRINGE SQ SCH (09:00)
[2017-07-18] MEDS ORDERED: AZITHROMYCIN 500 MG in DEXTROSE 5% IN WATER 250 ML IV SCH (10:00)
--- NOTE | 2017-07-18 10:05 | Discharge Summary ---
Medical - DS: Prov Patient information: Note initiated : 07/18/17 at 10:05 am Patient: Samanta Christopher 66 y/o F admitted on 07/16/17 for SOB, Worse Last 4 Days/COPD, Cough. Date of admission: 07/16/17 15:03 Discharge date: 07/18/17 Primary care physician: Brooklynn Noble DO Admitting clinician: Janice Garg Consults: 07/16/17 13:08 Consult to Physician [CONS] Stat Comment: Consulting Provider: Janice Garg Reason For Exam: Physician to Consult Telephone consultation with Dr. Tobias, pulmonology, in [place]. Attending physician on discharge: Janice Garg Medical - DS: Meds - Discharge Medications Prescriptions: Albuterol Sulfate [Proventil Hfa] 6.7 gm IH Q4HP PRN #1 [email or web address] PRN Reason: Shortness Of Breath Or Wheezing Cholecalciferol (Vitamin D3) [Vitamin D3] 1,000 unit PO QDAY #1 tab.chew predniSONE [Prednisone] 10 mg PO DAILY #70 tab Active and Home Medications: Discharge medications: Prednisone taper: 40 mg daily 7 days, then 30 mg daily 7, then 207 days, then 107 days. May be altered by physician. Vitamin D 1000 units daily Tylenol 650 mg every 6 hours as needed Albuterol inhaler 2 puffs every 4 hours as needed Trazodone 50 mg nightly as needed Prevacid 30 mg daily Duo nebs per nebulizer twice daily Hydrocortisone topical cream twice daily to 4 times daily as needed HCTZ 12.5 mg daily Advair 500-50 2 puffs every 12 hours Guaifenesin Dextromethorphan 10 mL every 4 hours as needed cough P Aspirin 81 mg daily She should probably stop using Benadryl at night for sleep, as this likely thickens her secretions. The same may be set for trazodone. We also discussed perhaps being tested for dairy allergy, as she eats a lot of dairy, and this may thicken her secretions as well. Previous medications: aspirin 81 mg tablet,delayed release 81 mg PO QDAY tab 04/01/15 [History Confirmed 07/16/17 Last Taken Unknown] fluticasone 500 mcg-salmeterol 50 mcg/dose blistr powdr for inhalation 2 inh INHALATION Q12H each 04/01/15 [History Confirmed 07/16/17 Last Taken Unknown] ipratropium-albuterol 0.5 mg-3 mg(2.5 mg base)/3 mL nebulization soln 3 ml INHALATION BID ml 04/01/15 [History Confirmed 07/16/17 Last Taken Unknown] predniSONE [Prednisone] 5 mg PO DAILY 08/19/15 [History Confirmed 07/16/17 Last Taken Unknown] dextromethorphan-guaifenesin 10 mg-100 mg/5 mL syrup 10 ml PO Q4H PRN #240 ml [Rx Confirmed 07/16/17 Last Taken Unknown] hydrocortisone 1 % topical cream 1 applic TOPICAL BID #28 g 11/21/16 [Rx Confirmed 07/16/17 Last Taken Unknown] hydrochlorothiazide 12.5 mg tablet 12.5 mg PO QDAY #30 tab 12/17/16 [Rx Confirmed 07/16/17 Last Taken Unknown] lansoprazole 30 mg capsule,delayed release 30 mg PO QDAY 90 Days #90 cap [Rx Confirmed 07/16/17 Last Taken Unknown] hydrocortisone 2.5 % topical cream 1 applic TOPICAL BID-QID PRN #30 g NS [Rx Confirmed 07/16/17 Last Taken Unknown] trazodone 50 mg tablet 50 mg PO QHS PRN #90 tab 06/12/17 [Rx Confirmed 07/16/17 Last Taken Unknown] Medical - DS: Hosp Hospital course: Mr. Christopher is a 66 year old F July 16, 2017: History of present illness: Ms. Christopher is a 66 year old female with a distant history of Mycobacterium avium infection, leading to chronic bronchiectasis. She has also previously been diagnosed with Pseudomonas pneumonia as well as aspergillosis. She was in her normal state of health until sometime in March of this year, when she started to have more trouble with her breathing. She says it seems like her breathing is gradually gotten worse over the course of the summer, and then 4 days ago has gotten quite severe. She reports severe dyspnea with exertion, to the point where she is just afraid to move at all. She says she does not have as much trouble breathing lying down, but notes that she takes trazodone to help her sleep. Almost every night now she is waking up during the night with coughing spells. She and her both say that she was so short of breath today, that she felt like she was just going to stop breathing altogether. [place] the [place] was really hard on her, so she spent most of her time indoors. She denies any recent fever. She only occasionally feels chilled. She says in the past if she has had Pseudomonas, she has very frequent chills. She does have a headache with coughing, and she and her both say that she has been coughing constantly. The cough is minimally productive, although this morning she did bring up some blood-streaked sputum. In the emergency room she was found to be severely dyspneic, although not overtly hypoxic. She has marked leukocytosis. BNP is also elevated at about 7 times normal. CRP is elevated. Otherwise, she denies dizziness, new eye or ear symptoms. She does have some sinus congestion and postnasal drip. She denies swollen glands, chest pain or palpitations, abdominal pain, nausea or vomiting, diarrhea or constipation, dysuria. July 17: Today, the patient notes she is feeling less short of breath. She is still coughing, and says she rarely brings up just a tiny bit of phlegm. She feels a little more energetic today, but says that is likely due to the steroids. Her did bring in the percussion vest, so she has been using that as well. She was able to get up and walk in the hallway with physical therapy today, and reportedly did quite well, without significant dyspnea. Otherwise, she notes that she tends to feel warm, due to the steroids. She denies fever chills, chest pain or palpitations, GI or symptoms. July 18: Hospital course: The patient was admitted and started on IV steroids as well as IV cefepime to cover for possible Pseudomonas. She has improved pretty steadily since then. I did review her case yesterday with her rooming house operator, Dr. Tobias, in [place]. He felt that this was more than likely a bronchiectasis exacerbation, rather than a superimposed infection. At his suggestion, we continued IV steroids yesterday and this morning, and will change booth attendant to oral steroids today. He strongly encourages her to continue with her percussion vest and saline nebs at least twice a day every day. Today, her breathing is a little better, but she has a persistent cough. This continues to be nonproductive. Continues to worry her. When I entered her room today, she was quite upset. She says that the nurse had told her that her white blood cell count was higher today, and she thought that meant that her pneumonia was getting worse. I explained to her that we are quite certain that her white blood cell count is elevated because of steroids, and not because of pneumonia. Her CAT scan did not show pneumonia. Otherwise, she denies fever chills, chest pain or palpitations. She continues to have mild dyspnea on exertion, although that seems better than on admission. She denies GI or symptoms. Exam: The patient is awake and alert, sitting up in bed. She seems a little bit anxious. Temperature 97.1. Heart rate 82. Respiratory rate 20. Pressure 145/79. O2 saturation is 96-98% on room air. Neck is supple without lymphadenopathy or JVD. Cardiac exam shows regular rate and rhythm. Lung exam shows scattered soft crackles, but is otherwise essentially clear. There is no sensory muscle use. Abdomen: Soft and nontender. Extremities show no edema. Neurologic exam is grossly nonfocal. Assessment and plan: #1. Pulmonary/infectious disease. Patient presented with worsening dyspnea, and depressed peak flow. She may just have a COPD exacerbation, or worsening of her bronchiectasis and pulmonary fibrosis, or superimposed infection. She did present with elevated white blood cell count and possible infiltrate on her chest x-ray, but subsequent CT did not confirm an infiltrate. -CT scan shows chronic bronchiectasis and fibrosis changes. Does not show definite new infiltrate. But does show pleural plaques, and also suggest pulmonary hypertension. I called her rooming house operator in [place], Dr. Tobias. I reviewed the case with him. He suspects this is more of a bronchiectasis exacerbation than pneumonia. He suggested keeping her on IV steroids for another day or so, and then put her on a very prolonged taper, starting with 40 mg a day 7 days, and then taper from there. He said we could probably discontinue IV antibiotics . He strongly encouraged her to continue with her percussion vest at least twice a day every day, to help prevent exacerbations. He asked me to remind her that it took her a very long time to become sick, and she needs to remember that it will take just as long to get better, and she should try not to get frustrated. -The patient was unable to produce sputum for a sputum sample. Blood cultures are negative so far. - 2. Cardiac. Patient presents with dyspnea and elevated BNP. She does have some risk factors for coronary disease. -Echocardiogram was ordered, regarding possible pulmonary hypertension, and also elevated BNP. This shows normal left ventricle with ejection fraction of 55%, mild mitral regurgitation. She does have elevated pulmonary artery pressure at 30 mmHg. She should have follow-up with her rooming house operator, to see if she needs further assessment for pulmonary hypertension. 3. CODE STATUS: It sounds like her wants her to be full code for the time being, and the patient is just not really willing to make a definite decision. Her will act as her POA. 4. DVT prophylaxis: Subcu Lovenox 5. History of hypertension. Continue HCTZ. Continue aspirin. 6. Hyperlipidemia. 7. History of impaired fasting glucose. Glucoses have been normal here, but may rise with her prednisone prescription. 8. History of osteoporosis. She believes her osteopenia has been stable. She does eat or drink dairy about 4 times a day. She does not take a vitamin D supplement, and does not know if her vitamin D level has been checked. We discussed she should probably be taking at least 1000 units of vitamin D per day. This might help prevent further bone loss, and also might help with her mood, as she seems prone to anxiety and depression. 9. GI. History of GERD. Continue Prevacid. 10. History of insomnia. Continue as needed trazodone. Patient reported she also uses Benadryl at home, but this would likely thicken her secretions, so I would recommend against this. She did receive 1 dose of Ambien here, which seemed to work pretty well for her. #11. Renal. Sodium and potassium are a bit low today. Because of this of this is uncertain. They be related to her fluids, antibiotics, steroids. Replaced potassium orally. Continue to monitor. I have asked her to check in with her primary care physician in the next 4 5 days. She believes she has an appointment with her rooming house operator in the next 1- 2 weeks. This visit is taken approximately 35 minutes so far today, to review her test results, interview and examine her, review her case in detail with both the patient and her , as well as staff, and write orders. Discharge diagnosis: Bronchiectasis exacerbation. Anxiety. Elevated BNP. - Time Spent with Patient Total time spent providing and/or coordinating discharge services: Greater than 30 minutes Medical - DS: Exam - Constitutional Vitals: Vital Signs Temp Pulse Pulse Resp BP BP Pulse Ox 07/18/17 08:00 97.1 F 20 145/79 96 07/18/17 07:20 67 16 98 07/18/17 04:00 98.3 F 73 16 146/78 99 07/17/17 23:36 98.4 F 74 14 136/74 97 07/17/17 20:32 97 07/17/17 20:00 98.3 F 79 18 120/70 97 07/17/17 19:30 79 18 07/17/17 16:00 97.6 F 68 18 124/65 98 07/17/17 13:55 86 20 07/17/17 12:33 86 110/57 99 07/17/17 10:57 98.6 F 20 110/57 99 Intake and Output 07/17/17 07/18/17 07/18/17 21:59 05:59 13:59 Intake Total 550 / 550 100 / 100 Balance 550 / 550 100 / 100 Intake: IV 50 / 50 100 / 100 Maxipime 1 gm In Dextrose 5% in 50 / 50 100 / 100 Water 50 ml @ 100 mls/hr IV Q8H [facility] Rx#:[id number] Oral 500 / 500 Other: Meal Dinner Percent of Meal Consumed 100% Feeding Ability Independent # Voids 1 2 # Bowel Movements 1 Weight 117 lb 6.4 oz Medical - DS: Data Labs on day of discharge: Labs from last 24 hours 07/18/17 07/18/17 04:00 04:00 WBC 16.8 H RBC 4.72 Hgb 14.2 Hct 42.4 MCV 89.8 MCH 30.0 MCHC 33.4 RDW 14.6 H Plt Count 400 MPV 8.4 Gran % 94.2 H Lymph % (Auto) 4.3 L [place] % (Auto) 1.5 Eos % (Auto) 0 Baso % (Auto) 0 Gran # 15.8 H Lymph # (Auto) 0.7 L [place] # (Auto) 0.2 Eos # (Auto) 0 Baso # (Auto) 0 Sodium 128 L Potassium 3.6 Chloride 91 L Carbon Dioxide 22 Anion Gap 15.0 BUN 15 Creatinine 0.6 GFR Calculation 94 Glucose 137 H Uric Acid 2.4 L Calcium 9.2 Phosphorus 2.7 Magnesium 2.3 Total Bilirubin 0.3 Direct Bilirubin < 0.2 GGT 10 AST 11 ALT 9 Alkaline Phosphatase 39 Lactate Dehydrogenase 149 Total Protein 6.3 Albumin 3.6 Globulin 2.7 Albumin/Globulin Ratio 1.3 Triglycerides 56 Preliminary micro results at discharge 07/16/17 13:00 Blood Culture - Preliminary Blood 07/16/17 13:08 Blood Culture - Preliminary Blood Blood cultures are negative so far. July 17: Chest x-ray shows COPD changes with patchy peripheral fibrosis, without obvious acute infiltrate. Echocardiogram: Shows pulmonary artery pressure of about 30 mmHg. Normal left ventricle, with ejection fraction 55%. Mild mitral regurgitation. July 16: Troponin is less than 0.012 ABG: On room air: PH 7.46, PCO2 32, PO2 79, bicarb 22, O2 saturation 96% Chest CT: Shows chronic bronchitis with extensive chronic tubular bronchiectasis with scattered interstitial fibrosis, overall with stable appearance since November 2014. No obvious superimposed infection. 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 Mild enlargement of the noncontrasted main pulmonary artery suggesting pulmonary hypertension. Nasal MRSA screen is negative. D-dimer is negative at less than 0.27 CBC: White blood cell count 18,300, hemoglobin 14, hematocrit 41, 90% neutrophils, a few toxic granulations. Chemistry panel: Notable for bicarb of 21, glucose 125 CRP is elevated at 4.4 BNP is elevated at 844 Chest x-ray: COPD changes with peripheral fibrosis throughout both lungs with possible superimposed infiltrate in the right upper lobe. Consider repeat chest CT to reassess burden of parenchymal disease and acute infiltrate. Next EKG: Shows normal sinus rhythm with a rate of about 70, normal axis, no acute ST -T changes. Medical - DS: A/P - Patient/Caregiver Discharge Instructions Activity: increase activity as tolerated Diet: Regular Diet Additional Instructions: 1. Bronchiectasis exacerbation. Please take prednisone, 40 mg each day, for 7 days, and then probably taper by 10 mg a day every week. Please verify this with your pulmonology office. Next Please continue to use her percussion vest and nebulized saline at least twice a day, as directed. Notify your doctors or come back to the emergency room for high fever, increased shortness of breath and cough. 2. History of osteopenia. Consider adding vitamin D 1-2000 units per day. Ask your primary care physician if your vitamin D level has been checked. 3. Have your lung doctor review your echocardiogram report, as he suggested that we check your pulmonary artery pressures. 4. Also, I would avoid taking Benadryl, and reconsider taking trazodone, as these can thicken your secretions, and make them harder to bring up. You may also want to be tested for dairy allergy, to be sure this is not also making your secretions thicker. Discharge medications: Prednisone taper: 40 mg daily 7 days, then 30 mg daily 7, then 207 days, then 107 days. May be altered by physician. Vitamin D 1000 units daily Tylenol 650 mg every 6 hours as needed Albuterol inhaler 2 puffs every 4 hours as needed Trazodone 50 mg nightly as needed Prevacid 30 mg daily Duo nebs per nebulizer twice daily Hydrocortisone topical cream twice daily to 4 times daily as needed HCTZ 12.5 mg daily Advair 500-50 2 puffs every 12 hours Guaifenesin Dextromethorphan 10 mL every 4 hours as needed cough P Aspirin 81 mg daily She should probably stop using Benadryl at night for sleep, as this likely thickens her secretions. The same may be set for trazodone. We also discussed perhaps being tested for dairy allergy, as she eats a lot of dairy, and this may thicken her secretions as well. Prescriptions: Albuterol Sulfate [Proventil Hfa] 6.7 gm IH Q4HP PRN #1 hfa.aer.ad PRN Reason: Shortness Of Breath Or Wheezing Cholecalciferol (Vitamin D3) [Vitamin D3] 1,000 unit PO QDAY #1 tab.chew predniSONE [Prednisone] 10 mg PO DAILY #70 tab - Problem Maintenance (1) Acute exacerbation of chronic obstructive airways disease Status: Acute (2) Bronchiectasis Status: Chronic Qualifiers: Bronchiectasis type: with acute exacerbation Qualified Code(s): J47.1 - Bronchiectasis with (acute) exacerbation (3) Hypertension Status: Chronic Qualifiers: Hypertension type: essential hypertension Qualified Code(s): I10 - Essential (primary) hypertension (4) Dyspnea Status: Chronic Qualifiers: Dyspnea type: dyspnea on exertion Qualified Code(s): R06.09 - Other forms of dyspnea - Follow up Plan Follow up with: Brooklynn Noble DO [Primary Care Provider] - Greg Tobias MD [Physician] - Disposition: Home, Self-Care Prognosis: Good Rehab Potential: Good Overall status at discharge: patient is progressing back to baseline Medical - DS: Qual - VTE Deep Vein Thrombosis/Pulmonary Embolism Present on Admission: No
== END 2017-07-18 11:45 | disposition home or self-care (01) | DRG 192 ==
LOC: ED 10:16 → ICU 15:03 → MEDSUR 07-18 06:10
PROVIDERS: ADMIT Internal Medicine; ATTEND Internal Medicine

== ENCOUNTER 2018-09-26 09:33 | Inpatient (IN) ==
[2018-09-26] MEDS ORDERED: IPRATROPIUM/ALBUTEROL 3 ML AMPUL.NEB NEB ONE ×2 (09:37→09:59)
--- NOTE | 2018-09-26 09:58 | XRay Report ---
HISTORY: Shortness of breath FINDINGS: Patient has moderate pulmonary fibrosis. There is an ill-defined alveolar opacity centrally in the right upper lobe. This was present on 03/27/18 and 07/17/17 and has slowly become worse. This is probably an area of active inflammation superimposed upon underlying scar. Patient also has documented bronchiectasis based on prior chest CT. No pleural effusion is present. The heart size is normal. There is elevation right hilum due to peripheral scarring and loss of lung parenchyma in the right upper lobe. There are surgical sutures in the right upper lobe. IMPRESSION: Moderate diffuse pulmonary fibrosis with superimposed active inflammatory process in the right upper lobe Interpreted and Authenticated by: Eduardo Caballero 09/26/18
[2018-09-26] MEDS ORDERED: methylPREDNISolone SOD SUCC 125 MG/2 ML VIAL IV ONE (09:59)
--- NOTE | 2018-09-26 09:59 | Emergency Department Note ---
SOB HPI - General Chief Complaint: Shortness of Breath/Dyspnea Stated Complaint: shortness of breath Time Seen by Provider: 09/26/18 09:44 Source: patient Mode of arrival: ambulatory Limitations: no limitations - History of Present Illness This pleasant 68-year-old female with a long-standing history of pulmonary disease who was brought by her in private car due to onset of upper respiratory infection yesterday that became worse with shortness of breath during the night and then this morning very difficult catching her breath. She had phlegm during the night. She is uncertain if it was colored. She feels hoarse of voice but she attributes this due to the cough. She does have accompanying runny nose but no sore throat. She has not had any fevers that she knows of but has felt some chills in the past 24 hours but no sweatiness. Some chest discomfort when she coughs or because of the cough but not separate from this. She used her inhaler, Pro-Air, during the night and this morning without benefit. She took additional prednisone this morning as 40 mg. She is on chronic 5 mg daily. She has used Advair only intermittently. She has been seen at [facility] for reflux and dysfunctional upper esophagus was prescribed a special bed with elevation; it seems to be helpful. She does not use oxygen chronically at home. On arrival was around 92% saturation. She has never been intubated previously. Her history includes Mycobacterium avium intracellulare; I believe this was 30 years ago. She is also had pulmonary aspergillosis and fibrosis. REVIEW OF SYSTEMS: Denies palpitations. Denies abdominal pain, nausea, vomiting. Has chronic acid reflux and takes Prevacid for this. Denies dysuria Denies rashes Denies headaches or weakness Denies anxiety or depression. - Related Data Home Medications Medication Instructions Recorded Confirmed fluticasone 500 mcg-salmeterol 50 2 inh INHALATION Q12H each 04/01/15 09/02/18 mcg/dose blistr powdr for inhalation ipratropium-albuterol 0.5 mg-3 3 ml INHALATION BID ml 04/01/15 09/02/18 mg(2.5 mg base)/3 mL nebulization soln Previous Rx's Medication Instructions Recorded dextromethorphan-guaifenesin 10 10 ml PO Q4H PRN #240 ml 03/08/16 mg-100 mg/5 mL syrup Albuterol Sulfate [Proventil Hfa] 6.7 gm IH Q4HP PRN #1 hfa.aer.ad 07/18/17 predniSONE [Prednisone] 10 mg PO DAILY #70 tab 07/18/17 hydrochlorothiazide 12.5 mg tablet 12.5 mg PO QDAY #90 tab 05/25/18 trazodone 50 mg tablet 50 mg PO .COMPLEX PRN #180 tab 06/24/18 lansoprazole 30 mg capsule,delayed 30 mg PO QDAY #90 cap 08/25/18 release Allergies Allergy/AdvReac Type Severity Reaction Status Date / Time aztreonam [From Azactam] Allergy Unknown Unknown Verified 09/26/18 09:36 budesonide [From Pulmicort] Allergy Unknown Unknown Verified 09/26/18 09:36 Diclofenac [From Voltaren] Allergy Unknown Rash Verified 09/26/18 09:36 doxycycline Allergy Unknown Rash Verified 09/26/18 09:36 Erythromycin Base Allergy Unknown Rash Verified 09/26/18 09:36 levofloxacin [From Levaquin] Allergy Unknown Rash Verified 09/26/18 09:36 lorazepam [From Ativan] Allergy Unknown Rash Verified 09/26/18 09:36 moxifloxacin [From Avelox] Allergy Unknown Unknown Verified 09/26/18 09:36 Penicillins Allergy Unknown Hives Verified 09/26/18 09:36 Sulfa (Sulfonamide Allergy Unknown Unknown Verified 09/26/18 09:36 Antibiotics) sulfamethoxazole Allergy Unknown Rash Verified 09/26/18 09:36 [From Septra] trimethoprim [From Septra] Allergy Unknown Rash Verified 09/26/18 09:36 Past Medical History - Past Medical History [facility] Narrative: Medical History (Last Updated 09/26/18 @ 09:47 by Eddie Verde DO) Urinary tract infection (Acute) Insomnia (Chronic) Rectal bleeding (Acute) Bronchiectasis (Chronic) Hypertension (Chronic) Tuberculosis, pulmonary (Resolved) Screening mammogram for high-risk patient (Chronic) Osteoporosis (Chronic) Impaired fasting glucose (Chronic) Hyperlipidemia (Chronic) Dyspnea (Chronic) Cough (Chronic) COPD (chronic obstructive pulmonary disease) (Chronic) Atherosclerosis, generalized (Chronic) Asthma (Chronic) Arthritis (Chronic) Allergic rhinitis (Chronic) Allergic bronchopulmonary aspergillosis (Chronic) Acid reflux (Chronic) Pneumonia (Resolved) Acute hypokalemia (Inactive) Adenomatous polyp (Inactive) Avulsion of skin of finger (Inactive) Bronchiectasis without acute exacerbation (Inactive) Encounter for Health Maintenance Examination in Adult (Inactive) Health counseling (Inactive) Hypokalemia (Inactive) Laceration (Inactive) Near syncope (Inactive) Osteopenia (Inactive) Pneumonia (Inactive) Rash and nonspecific skin eruption (Inactive) Symptomatic menopausal or female climacteric states (Inactive) Wheezing (Inactive) Chronic steroid use. Past Surgical History (Last Reviewed 09/02/18 @ 10:29 by Brooklynn Noble DO) History of colonoscopy (Inactive) History of esophagogastroduodenoscopy (Inactive) History of lung biopsy (Inactive) S/P partial hysterectomy (Inactive) Family History (Last Reviewed 09/02/18 @ 10:29 by Brooklynn Noble DO) Father Rheumatoid arthritis Essential hypertension Mother Malignant neoplasm of breast Grandmother Malignant neoplasm of liver Cerebrovascular accident Medical history: Reports: COPD, other (recurrent bronchiectasis, 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) Psychiatric history: Reports: no psych history DIRECTOR OF ACCREDITATION history: Reports: non-contributory Surgical history ED: Reports: non-contributory - Social History smoking status: Former smoker Alcohol use: Reports: None Drug use: Reports: none Physical Exam Limitations: no limitations General appearance: alert, in distress (Slight or mild respiratory with effort; initially with significant wheezing. Saturations 92% on arrival.), other (Thin) Head: atraumatic, normocephalic Eye: Present: EOMI Neck: Present: trachea midline. Absent: lymphadenopathy, thyromegaly Chest: Present: symmetric chest wall rise Respiratory: Present: rales/crackles (Slight on inspiration posteriorly.), wheezes (Mild polyphonic end expiratory and multiple lung valerio posteriorly. This is after 1 DuoNeb.), accessory muscle use (Slight/mild.), prolonged expiratory phase (Slight/mild.). Absent: respiratory distress Cardiovascular: Present: regular rate, normal rhythm. Absent: systolic murmur, diastolic murmur Abdominal: Present: soft. Absent: distention, tenderness, guarding, rebound, rigidity, organomegaly, mass Extremities: Absent: pedal edema, pretibial edema, calf tenderness Back: Absent: CVA tenderness (R), CVA tenderness (L), spinous process tenderness Neurological: Present: alert, oriented X3 Psychiatric: Present: normal affect, normal mood Skin: Present: warm, dry Course Course Narrative: 9:49 AM - a second DuoNeb will be given. I will go ahead with Solu-Medrol 62.5 since she has had 40 of prednisone this morning. Chest x-ray was fairly quickly read and demonstrates a mild opacification in the right upper lobe that has some chronic pattern but with probable acute inflammation pattern. Labs obtained. No specific concerns or risk for pulmonary embolus. Probable viral exacerbation of COPD and underlying lung diseases. Approximately 10:15 AM - second nebulizer treatment (DuoNeb) given due to persistent 9394% on 2 L room air with some expiratory wheezes. 11:08 AM - still having respiratory rate at around 28 with some accessory muscle use (neck, supraclavicular) and eliminating her oxygen her saturation goes to 89% while awake. Pro-calcitonin pending. Lactic acid added. After the pro calcitonin comes back I will speak with hospitalist for probable admission. 11:32 AM - patient was recently treated with an antibiotic by her early morning babysitter in [facility], and was clindamycin which did not cause her any side effects. She has multiple allergies to antibiotics that are primarily hives and/or rashes. She believes that this may have been tested for/worked up at [facility], but does not know those results. Pro calcitonin is normal. Lactic acid is under 2. I spoke with Dr. Paez, hospitalist, regarding patient's hypoxia and tachypnea with acute exacerbation of her cough, with need for hospitalization to which he agrees and kindly accept her care. Vital Signs Temperature 98.3 F 09/26/18 09:33 Pulse Rate 89 09/26/18 09:33 Respiratory Rate 18 09/26/18 09:33 Blood Pressure 128/78 09/26/18 09:33 Pulse Oximetry (%) 98 09/26/18 09:33 Temperature 98.3 F 09/26/18 09:33 Pulse Rate 89 09/26/18 10:45 Respiratory Rate 28 H 09/26/18 10:45 Blood Pressure 148/82 09/26/18 10:45 Pulse Oximetry (%) 96 09/26/18 10:45 Shortness of Breath/Dyspnea - Lab Data Result diagrams: 09/26/18 10:12 09/26/18 10:12 Lab Results 09/26/18 09/26/18 Range/Units 10:12 10:12 WBC 11.1 H (4.5-11.0) K/mcL RBC 5.00 (4.00-5.20) M/mcL Hgb 14.7 (12.0-15.0) g/dL Hct 44.8 (36.0-48.0) % MCV 89.7 (80.0-100.0) fL MCH 29.4 (26.0-34.0) pg MCHC 32.8 (31.0-36.0) g/dL RDW 14.7 H (11.5-14.5) % Plt Count 328 (140-440) K/mcL MPV 8.4 (7.4-10.4) fL Gran % 95.8 H (38.0-78.0) % Lymph % (Auto) 2.5 L (15.5-49.0) % Dupage % (Auto) 1.5 (1.0-12.0) % Eos % (Auto) 0.2 (0.0-7.0) % Baso % (Auto) 0 (0.0-2.0) % Gran # 10.6 H (1.8-8.0) K/mcL Lymph # (Auto) 0.3 L (1.5-4.8) K/mcL Dupage # (Auto) 0.2 (0.1-0.9) K/mcL Eos # (Auto) 0 (0.0-0.7) K/mcL Baso # (Auto) 0 (0.0-0.3) K/mcL Sodium 132 L (133-145) mmol/L Potassium 3.1 L (3.3-5.1) mmol/L Chloride 90 L (96-108) mmol/L Carbon Dioxide 27 (22-30) mmol/L Anion Gap 15.0 (8-16) BUN 12 (8-23) mg/dl Creatinine 0.8 (0.6-1.1) mg/dl GFR Calculation 75 Glucose 129 H (70-105) mg/dL Calcium 9.5 (8.6-10.4) mg/dl Total Bilirubin 0.4 (0.0-1.0) mg/dL AST 16 (0-37) U/l ALT 9 (0-40) U/l Alkaline Phosphatase 51 (39-117) U/L Total Protein 7.1 (5.9-8.4) gm/dL Albumin 4.1 (3.2-5.2) gm/dL Globulin 3.0 (2.2-3.7) gm/dL Albumin/Globulin Ratio 1.4 (1.0-2.3) Disposition Pt seen by LEGAL RECEPTIONIST/PA only: No Clinical Impression: COPD with acute exacerbation, Viral upper respiratory infection, Abnormal chest x-ray, Hypokalemia, Hyponatremia Disposition: Xfer As Inpt ([facility]) Condition: Fair Referrals: Brooklynn Noble DO [Primary Care Provider] -
[2018-09-26 10:37] LABS: Basophils # (Auto) 0 K/mcL (0.0-0.3); Basophils % (Auto) 0 % (0.0-2.0); Eosinophils # (Auto) 0 K/mcL (0.0-0.7); Eosinophils % (Auto) 0.2 % (0.0-7.0); Granulocytes % (Auto) 95.8 % (38.0-78.0); Lymphocytes # (Auto) 0.3 K/mcL (1.5-4.8); Lymphocytes % (Auto) 2.5 % (15.5-49.0); Mean Cell Volume 89.7 fL (80.0-100.0); Mean Corpuscular HGB Conc 32.8 g/dL (31.0-36.0); Mean Corpuscular Hemoglobin 29.4 pg (26.0-34.0); Monocytes # (Auto) 0.2 K/mcL (0.1-0.9); Monocytes % (Auto) 1.5 % (1.0-12.0); Platelet Count 328 K/mcL (140-440); Red Cell Distribution Width 14.7 % (11.5-14.5)
[2018-09-26 11:03] LABS: ALT/SGPT 9 U/l (0-40); Albumin 4.1 gm/dL (3.2-5.2); Albumin/Globulin Ratio 1.4 (1.0-2.3); Alkaline Phosphatase 51 U/L (39-117); Blood Urea Nitrogen 12 mg/dl (8-23)
--- NOTE | 2018-09-26 12:25 | Internal Med History&Physical ---
Medical - H&P: HPI Patient information: Note initiated : 09/26/18 at 12:24 pm Service Date, if different from initiated Date: [] Patient: Samanta Christopher a 68 y/o F admitted on for shortness of breath. Chief Complaint: [] Chief complaint: SOB History of present illness: Ms. 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 She was recently visiting her daughter in [place]. She came back a week ago and since then has been experiencing progressive shortness of breath along with nonpurulent cough and increased expectoration. Samanta is of the opinion that she caught an infection in flight. She denies associated fevers, shaking chills sweats but endorses to significant orthopnea persistent cough with clear sputum. She did not get any relief from her regular inhalers. She also tried an additional 40 mg prednisone dose without much effect. She presents to the ER along with her Martinez with above symptoms. Initial workup was consistent with COPD flare. Patient was started on bronchodilators/IV steroids. His extensive allergy history antibiotics was started. Imaging She denies changes in medications. She denies exposure to smoke. She denies sick contacts. Imaging was suggestive of right upper lobe inflammatory process superimposed on pulmonary fibrosis. Hospitalist service was subsequently consulted At the time of evaluation Ms. Main is remarkably short of breath however she was able to endorse history of above. She denies recent aspiration, hospitalization, antibiotic exposure. She sees Brooklynn Rabago primary care physician. Review of systems 10 point review of system was performed and is negative except for one discussed above Medical - H&P: PMH Medical history: Insomnia (Chronic) Encounter for Health Maintenance Examination in Adult (Chronic) Rectal bleeding (Acute) Bronchiectasis (Chronic) Physical exam (Chronic) Hypertension (Chronic) Tuberculosis, pulmonary (Resolved) M-Avium Screening mammogram for high-risk patient (Chronic) 06/24/2013 Osteoporosis (Chronic) 06/24/2013 Impaired fasting glucose (Chronic) Hyperlipidemia (Chronic) Dyspnea (Chronic) Cough (Chronic) COPD (chronic obstructive pulmonary disease) (Chronic) Atherosclerosis, generalized (Chronic) Asthma (Chronic) 03/26/2014 Arthritis (Chronic) 03/26/2014 Allergic rhinitis (Chronic) Allergic bronchopulmonary aspergillosis (Chronic) Acid reflux (Chronic) Acute hypokalemia (Inactive) Adenomatous polyp (Inactive) With high grade dyslplasia Avulsion of skin of finger (Inactive) 03/29/2014 - Left radial index finger Bronchiectasis without acute exacerbation (Inactive) Health counseling (Inactive) 06/24/2013 Hypokalemia (Inactive) continue high K diet, potassium level is stable. Laceration (Inactive) 03/26/2014 - 3cm superficial Near syncope (Inactive) acute episode likely from amlodipine, but hr was 52, and presyncope was releated to some activity. symptoms have since resolve,d and pt has no pedal edema, no loud p2, plan to monitor. Get echo if symptoms recur to r/o Pulmonary hypertension. Osteopenia (Inactive) 04/27/2014 Pneumonia (Inactive) Symptomatic menopausal or female climacteric states (Inactive) 01/05/2014 Wheezing (Inactive) Surgical history: History of colonoscopy (Inactive) 06/09/2014 - Dr. Booker History of esophagogastroduodenoscopy (Inactive) 12/07/2009 History of lung biopsy (Inactive) 1985, 1986 S/P partial hysterectomy (Inactive) Ovaries retained Pertinent family history: Father Rheumatoid arthritis Essential hypertension Mother Malignant neoplasm of breast Grandmother Malignant neoplasm of liver Cerebrovascular accident Maternal/Paternal Social history: smoking status: Former smoker quit date: 10/20/65 pack-years: 1 alcohol intake frequency: holiday/special occasion only substance use type: does not use Functional capacity: independent ambulation Drug use: none Alcohol use: occasionally Medical - H&P: Meds Home Medications Medication Instructions Recorded Confirmed Type fluticasone 500 mcg-salmeterol 50 2 inh INHALATION Q12H each 04/01/15 09/26/18 History mcg/dose blistr powdr for inhalation ipratropium-albuterol 0.5 mg-3 3 ml INHALATION BID ml 04/01/15 09/26/18 History mg(2.5 mg base)/3 mL nebulization soln dextromethorphan-guaifenesin 10 10 ml PO Q4H PRN #240 ml 12/26/15 09/26/18 Rx mg-100 mg/5 mL syrup Albuterol Sulfate [Proventil Hfa] 6.7 gm IH Q4HP PRN #1 hfa.aer.ad 07/18/1706/06 Rx hydrochlorothiazide 12.5 mg tablet 12.5 mg PO QDAY #90 tab 05/25/18 09/26/18 Rx trazodone 50 mg tablet 50 mg PO .COMPLEX PRN #180 tab 06/24/18 09/26/18 Rx lansoprazole 30 mg capsule,delayed 30 mg PO QDAY #90 cap 08/25/18 09/26/18 Rx release predniSONE [Prednisone] 40 mg PO DAILY 09/26/18 09/26/18 History Allergies Allergy/AdvReac Type Severity Reaction Status Date / Time aztreonam [From Azactam] Allergy Intermediate Hives Verified 09/26/18 13:28 Penicillins Allergy Intermediate Hives Verified 09/26/18 13:28 budesonide [From Pulmicort] Allergy Unknown Unknown Verified 09/26/18 09:36 Diclofenac [From Voltaren] AdvReac Intermediate Rash Verified 09/26/18 13:12 doxycycline AdvReac Intermediate Rash Verified 09/26/18 13:12 Erythromycin Base AdvReac Intermediate Rash Verified 09/26/18 13:12 levofloxacin [From Levaquin] AdvReac Intermediate Rash Verified 09/26/18 13:12 lorazepam [From Ativan] AdvReac Intermediate Rash Verified 09/26/18 13:12 moxifloxacin [From Avelox] AdvReac Intermediate Rash Verified 09/26/18 13:12 Sulfa (Sulfonamide AdvReac Intermediate Rash Verified 09/26/18 13:12 Antibiotics) sulfamethoxazole AdvReac Intermediate Rash Verified 09/26/18 13:12 [From Septra] trimethoprim [From Septra] AdvReac Intermediate Rash Verified 09/26/18 13:12 Medical - H&P: Exam - Constitutional Vitals: Temp Pulse Resp BP Pulse Ox 98.3 F 99 H 18 142/82 94 09/26/18 09:33 09/26/18 11:25 09/26/18 11:25 09/26/18 11:15 09/26/18 11:25 General appearance: average body habitus, no acute distress Exam: Head normocephalic No ear nose discharge eye movement symmetric No lymphadenopathy Oral cavity dry S1-S2 regular rhythm No murmur appreciated Abdomen soft nontender Lower extremity sinus clubbing Skin no suspicious lesion Psych alert cooperative Neuro nonfocal Medical - H&P: Reslt - Labs CBC & Chem 7: 09/26/18 10:12 09/26/18 10:12 Labs: Short CBC 09/26/18 Range/Units 10:12 WBC 11.1 H (4.5-11.0) K/mcL Hgb 14.7 (12.0-15.0) g/dL Hct 44.8 (36.0-48.0) % Plt Count 328 (140-440) K/mcL BMP 09/26/18 10:12 Sodium 132 L Potassium 3.1 L Chloride 90 L Carbon Dioxide 27 BUN 12 Creatinine 0.8 Glucose 129 H Calcium 9.5 Liver Function 09/26/18 Range/Units 10:12 Total Bilirubin 0.4 (0.0-1.0) mg/dL AST 16 (0-37) U/l ALT 9 (0-40) U/l Alkaline Phosphatase 51 (39-117) U/L Albumin 4.1 (3.2-5.2) gm/dL Medical - H&P: A/P (1) Acute exacerbation of chronic obstructive airways disease Current visit: Yes Status: Acute * Acute exacerbation of COPD-continue bronchodilators/IV steroids/pulmonary toilet/supplemental oxygen. Inpatient admission given advanced age and progressive deterioration * Right upper lobe infiltrate-extensive medication allergy precludes use of antibiotics. Pro-calcitonin negative and hence antibiotics at this time will not be indicated. Continue clinical monitoring * History of hypertension continue thiazide * Anxiety disorder continue trazodone * DVT prophylaxis -start subcu heparin * Full code Plan * Bronchodilators/steroids * Pulmonary toilet/PT OT * Prior medical condition management as above
[2018-09-26] MEDS ORDERED: ONDANSETRON 4 MG/2 ML VIAL IV PRN (13:04)
[2018-09-26] MEDS ORDERED: guaiFENesin W/DM (PP) 5 ML ORAL.SOL (#118) PO PRN (13:04)
[2018-09-26] MEDS ORDERED: LEVOFLOXACIN 750 MG/150 ML BAG IV SCH (13:04)
[2018-09-26] MEDS ORDERED: POTASSIUM CHLORIDE 20 MEQ PACKET PO PRN (13:04)
[2018-09-26] MEDS ORDERED: MAGNESIUM SULFATE 2 GM/50 ML BAG IV PRN (13:04)
[2018-09-26] MEDS: 0.9 % SODIUM CHLORIDE 10 ML SYRINGE IV SCH ×2 (13:33→20:59)
[2018-09-26] MEDS: ACETAMINOPHEN 325 MG TABLET PO PRN ×2 (13:33→18:40)
[2018-09-26] MEDS: methylPREDNISolone SOD SUCC 125 MG/2 ML VIAL IV SCH ×2 (14:34→22:35)
[2018-09-26] MEDS: IPRATROPIUM/ALBUTEROL 3 ML AMPUL.NEB NEB SCH ×3 (14:43→22:24)
[2018-09-26] MEDS: BUDESONIDE 0.5 MG/2 ML AMPUL.NEB NEB SCH ×2 (18:23→22:16)
[2018-09-26] MEDS: guaiFENesin/CODEINE 10 ML UDC PO PRN (20:57)
[2018-09-26] MEDS: SENNOSIDES/DOCUSATE SODIUM 1 TAB TABLET PO SCH (20:58)
[2018-09-26] MEDS: traZODone HCL 50 MG TABLET PO PRN (20:58)
[2018-09-26] MEDS: HEPARIN 5,000 UNIT/ML VIAL SQ SCH (20:58)
[2018-09-26] MEDS: DOCUSATE SODIUM 100 MG CAPSULE PO SCH (20:58)
[2018-09-27] MEDS: IPRATROPIUM/ALBUTEROL 3 ML AMPUL.NEB NEB SCH ×6 (03:13→22:59)
[2018-09-27] MEDS: ACETAMINOPHEN 325 MG TABLET PO PRN (03:15)
[2018-09-27 05:25] LABS: Mean Cell Volume 88.2 fL (80.0-100.0); Mean Corpuscular HGB Conc 33.6 g/dL (31.0-36.0); Mean Corpuscular Hemoglobin 29.6 pg (26.0-34.0); Platelet Count 312 K/mcL (140-440); RBC 4.78 M/mcL (4.00-5.20); Red Cell Distribution Width 15.3 % (11.5-14.5)
[2018-09-27 05:54] LABS: ALT/SGPT 8 U/l (0-40); Albumin 3.9 gm/dL (3.2-5.2); Albumin/Globulin Ratio 1.4 (1.0-2.3); Alkaline Phosphatase 43 U/L (39-117); Bilirubin,Direct < 0.2 mg/dL (0.0-0.3); Blood Urea Nitrogen 9 mg/dl (8-23); Gamma Glutamyl Transpeptidase 10 U/L (5-36); Uric Acid 2.9 mg/dL (2.5-8.0)
[2018-09-27] MEDS: 0.9 % SODIUM CHLORIDE 10 ML SYRINGE IV SCH ×3 (05:56→22:04)
[2018-09-27] MEDS: methylPREDNISolone SOD SUCC 125 MG/2 ML VIAL IV SCH ×3 (05:56→21:56)
[2018-09-27 06:34] LABS: Anisocytosis 1+ (NONE SEEN); Band Neutrophils % 12 % (0-10); Lymphocytes % 6 % (15-49); Monocytes % (Manual) 1 % (1-12); Platelet Estimate NORMAL (NORMAL); RBC Morphology ABNORM (NORMAL); Segmented Neutrophils % 81 % (38-78); Toxic Granulation 1+ (NONE SEEN)
[2018-09-27] MEDS: PANTOPRAZOLE 40 MG TABLET PO SCH (06:38)
[2018-09-27] MEDS: DOCUSATE SODIUM 100 MG CAPSULE PO SCH ×2 (08:05→20:40)
[2018-09-27] MEDS: HEPARIN 5,000 UNIT/ML VIAL SQ SCH ×2 (08:23→20:40)
[2018-09-27] MEDS: HYDROCHLOROTHIAZIDE 12.5 MG CAPSULE PO SCH (08:23)
[2018-09-27] MEDS: MULTIVIT,THER IRON,CA,FA & MIN 1 TABLET PO SCH (08:23)
[2018-09-27] MEDS: BUDESONIDE 0.5 MG/2 ML AMPUL.NEB NEB SCH (08:35)
[2018-09-27] MEDS: ACETAMINOPHEN 800 MG/80 ML BOTTLE IV PRN ×2 (10:31→19:57)
[2018-09-27] MEDS ORDERED: IOPAMIDOL 100 ML BOTTLE IV ONE (10:32)
[2018-09-27] MEDS: CIPROFLOXACIN 400 MG/200 ML BAG IV SCH ×2 (11:42→20:39)
--- NOTE | 2018-09-27 11:48 | Internal Med Progress Note ---
Medical - PN: Subj Patient information: Note initiated : 09/27/18 at 11:46 am Service Date, if different from initiated Date: [] Patient: Samanta Christopher a 68 y/o F admitted on 09/26/18 for shortness of breath. Chief Complaint: [] Interval history: Ms. 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 She was recently visiting her daughter in [place]. She came back a week ago and since then has been experiencing progressive shortness of breath along with nonpurulent cough and increased expectoration. Samanta is of the opinion that she caught an infection in flight. She denies associated fevers, shaking chills sweats but endorses to significant orthopnea persistent cough with clear sputum. She did not get any relief from her regular inhalers. She also tried an additional 40 mg prednisone dose without much effect. She presents to the ER along with her Martinez with above symptoms. Initial workup was consistent with COPD flare. Patient was started on bronchodilators/IV steroids. His extensive allergy history antibiotics was started. Imaging She denies changes in medications. She denies exposure to smoke. She denies sick contacts. Imaging was suggestive of right upper lobe inflammatory process superimposed on pulmonary fibrosis. Hospitalist service was subsequently consulted At the time of evaluation Ms. Main is remarkably short of breath however she was able to endorse history of above. She denies recent aspiration, hospitalization, antibiotic exposure. She sees [facility] primary care physician. 09/27 Pt seen examined, still short of breath, but somewhat better, but had significant difficulty in breathing, this AM, responds well to nebulizer treatment cough present, wet deep, but not expectoration. 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 induced sputum to be sent to Gram stain/ fungal stain and cultures. Start pt on IV cipro, has used cipro before without any issues. Discussed same with pt, given her broncheatasis, and chr steroid use puts her at high risk for pseudomonas infection. Pertinent ROS: Denies headache, dizziness Denies chest pain, palpitations present cough and shortness of breath Denies abdominal pain, nausea or vomiting. - Constitutional Vitals: Vital Signs Temp Pulse Resp BP Pulse Ox 99.1 F H 92 H 22 165/86 96 09/27/18 06:46 09/27/18 11:09 09/27/18 11:09 09/27/18 06:46 09/27/18 11:00 Period Temp Pulse Resp BP Sys/Sow Pulse Ox Last 24 Hr 97 F-99.1 F 84-104 20-28 104-165/60-86 91-97 Intake and Output 09/26/18 09/27/18 09/27/18 21:59 05:59 13:59 Intake Total 800 / 800 100 / 100 80 / 80 Output Total 200 / 200 500 / 500 Balance 600 / 600 -400 / -400 80 / 80 Weight 119 lb Intake & Output: Intake & Output 09/26/18 09/27/18 09/27/18 21:59 05:59 13:59 Intake Total 800 / 800 100 / 100 80 / 80 Output Total 200 / 200 500 / 500 Balance 600 / 600 -400 / -400 80 / 80 Weight 119 lb Intake: IV 80 / 80 Oral 800 / 800 100 / 100 Output: Void Amount 200 / 200 500 / 500 Other: Meal Applesauce Breakfast Percent of Meal Consumed 100% 75% Feeding Ability Independent Urine Color Bright Yellow Bright Yellow Urine Odor Normal Normal Stool Size Moderate Stool Color Brown Stool Consistency Formed # Voids 1 1 1 # Bowel Movements 1 Exam: Constitutional; Afebrile, cooperative, alert, not in distress. Eyes- No icterus, , No periorbital swelling Ears- Ext ear normal, hearing normal to conversation. Neck- Midline trachea, supple Respiratory system: Air Entry equal on both sides, bilateral coarse breath sounds. CVS- Rate rhythm regular, S1,S2 heard, no gallop, no rub. 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 Medical - PN: Obj Da - Labs CBC & Chem 7: 09/27/18 04:31 09/27/18 04:31 Labs: Abnormal Lab Results 09/27/18 09/27/18 09/26/18 04:31 04:31 10:12 WBC RDW 15.3 H Gran % Lymph % (Auto) Gran # Lymph # (Auto) Seg Neutrophils % 81 H Band Neutrophils % 12 H Lymphocytes % 6 L WBC Morphology Abnorm A Toxic Granulation 1+ A RBC Morphology Abnorm A Anisocytosis 1+ A Sodium 130 L 132 L Potassium 3.1 L Chloride 90 L 90 L Glucose 161 H 129 H Phosphorus 2.6 L 09/26/18 10:12 WBC 11.1 H RDW 14.7 H Gran % 95.8 H Lymph % (Auto) 2.5 L Gran # 10.6 H Lymph # (Auto) 0.3 L Seg Neutrophils % Band Neutrophils % Lymphocytes % WBC Morphology Toxic Granulation RBC Morphology Anisocytosis Sodium Potassium Chloride Glucose Phosphorus Meds: Medications Acetaminophen (Tylenol) 650 mg PO Q4-6HP PRN PRN Reason: PAIN/FEVER > 101 Last Admin: 09/27/18 03:15 Dose: 650 mg Albuterol/Ipratropium (Duoneb) 3 ml NEB Q4HRT [facility] Last Admin: 09/27/18 11:01 Dose: 3 ml Docusate Sodium (Colace) 100 mg PO BID [facility] Last Admin: 09/27/18 08:05 Dose: Not Given Guaifenesin/Codeine Phosphate (Robitussin Ac) 10 ml PO Q4HP PRN PRN Reason: Cough Last Admin: 09/26/18 20:57 Dose: 10 ml Heparin Sodium (Porcine) (Heparin) 5,000 unit SQ Q12 [facility] Last Admin: 09/27/18 08:23 Dose: 5,000 unit Hydrochlorothiazide (Oretic) 12.5 mg PO DAILY [facility] Last Admin: 09/27/18 08:23 Dose: 12.5 mg Magnesium Sulfate (Magnesium Sulfate) 2 gm in 50 mls @ 50 mls/hr IV UD PRN PRN Reason: MG = or < 1.7 Acetaminophen (Ofirmev) 800 mg in 80 mls @ 160 mls/hr IV Q6HP PRN PRN Reason: PAIN/FEVER > 101 Last Infusion: 09/27/18 11:01 Dose: Infused Ciprofloxacin (Cipro) 400 mg in 200 mls @ 200 mls/hr IV Q12H [facility] Last Admin: 09/27/18 11:42 Dose: 200 mls/hr Iron Carb/Multivit/Johnson Siding/Folic Acid (Multivitamin W/Minerals) 1 tab PO DAILY [facility] Last Admin: 12/09/18 08:23 Dose: Not Given Methylprednisolone Sodium Succinate (Solu-Medrol) 60 mg IV Q8 [facility] Last Admin: 09/27/18 05:56 Dose: 60 mg Ondansetron HCl (Zofran) 4 mg IV Q4-6HP PRN PRN Reason: Nausea And Vomiting Pantoprazole Sodium (Protonix) 40 mg PO QAMAC [facility] Last Admin: 09/27/18 06:38 Dose: 40 mg Potassium Chloride (Klor-Con) 40 meq PO DAILYP PRN PRN Reason: K+ < 3.5 Last Admin: 09/26/18 14:56 Dose: 40 meq Senna/Docusate Sodium (Senna Plus Tablet) 1 tab PO HS [facility] Last Admin: 09/26/18 20:58 Dose: Not Given Sodium Chloride (Saline Flush) 10 ml IV Q8 [facility] Last Admin: 09/27/18 05:56 Dose: 10 ml Trazodone HCl (Desyrel) 50 mg PO HSP PRN PRN Reason: Insomnia Last Admin: 09/26/18 20:58 Dose: 50 mg Medical - PN: A/P - Time Spent With Patient Total time spent is greater than 50% in coordination of care (as documented) at patient's floor/unit and/or counseling patient: - Narrative A/P Narrative: A/P Acute copd exacerbation- IV steroids and bronchodilators for now..ABG shows Ph 7.46/co2 38 O2 66 on 1 L oxygen Broncheatesis/ flare- IV cipro for now, monitor for response. Shortness of breath due to above, CT neg for PE. h/o HTN- resume home meds once verified Anxiety disorder, on trazodone, DVT sq hep full code
--- NOTE | 2018-09-27 15:17 | Cat Scan Report ---
CLINICAL INFORMATION: Cough, shortness of breath, prior pneumonia with mycobacterium avium COMPARISON: Chest CT on 07/16/17 TECHNIQUE: Axial images obtained through the chest. intravenous contrast administration was administered, and scanning was performed during pulmonary arterial phase. Sagittally and coronally reformatted images were obtained. MIP reformatted images. The radiation exposure was limited using dose reduction technology. FINDINGS: The pulmonary arteries are normal with no intraluminal filling defects. The aorta is normal in caliber and there is minimal plaque formation. The heart is normal in size and contour. Patient has moderate widespread pulmonary fibrosis throughout both lungs. There is also bronchiectasis and bronchial wall thickening. Some of the distal third order bronchi have mucus plugging within them. Few granuloma are present. Calcified pleural plaque is seen posterolaterally in the right upper thorax. No alveolar infiltrate has developed and there is no suspicious mass. No pleural effusion or adenopathy have developed. There are several large bulla in the right middle lobe with milder involvement in the lingula. Comparison with the prior exam on 07/16/17 shows no significant change. IMPRESSION: Moderate pulmonary fibrosis and bronchiectasis with superimposed acute bronchitis. No evidence of pulmonary emboli or alveolar pneumonia Dr. Rhodes was called with the results Interpreted and Authenticated by: Eduardo Caballero 09/27/18
[2018-09-27] MEDS: traZODone HCL 50 MG TABLET PO PRN (20:39)
[2018-09-27] MEDS: guaiFENesin/CODEINE 10 ML UDC PO PRN (21:00)
[2018-09-27] MEDS: SENNOSIDES/DOCUSATE SODIUM 1 TAB TABLET PO SCH (21:01)
[2018-09-28] MEDS: IPRATROPIUM/ALBUTEROL 3 ML AMPUL.NEB NEB SCH ×6 (04:19→22:08)
[2018-09-28 06:03] LABS: Mean Cell Volume 89.9 fL (80.0-100.0); Mean Corpuscular HGB Conc 32.7 g/dL (31.0-36.0); Mean Corpuscular Hemoglobin 29.3 pg (26.0-34.0); Platelet Count 343 K/mcL (140-440); RBC 4.81 M/mcL (4.00-5.20); Red Cell Distribution Width 15.1 % (11.5-14.5)
[2018-09-28] MEDS: methylPREDNISolone SOD SUCC 125 MG/2 ML VIAL IV SCH ×3 (06:20→22:11)
[2018-09-28] MEDS: 0.9 % SODIUM CHLORIDE 10 ML SYRINGE IV SCH ×3 (06:21→20:51)
[2018-09-28 06:28] LABS: ALT/SGPT 10 U/l (0-40); Albumin 3.7 gm/dL (3.2-5.2); Albumin/Globulin Ratio 1.3 (1.0-2.3); Alkaline Phosphatase 42 U/L (39-117); Bilirubin,Direct < 0.2 mg/dL (0.0-0.3); Blood Urea Nitrogen 10 mg/dl (8-23); Gamma Glutamyl Transpeptidase 11 U/L (5-36); Uric Acid 2.7 mg/dL (2.5-8.0)
[2018-09-28 08:02] LABS: Anisocytosis FEW (NONE SEEN); Band Neutrophils % 1 % (0-10); Lymphocytes % 2 % (15-49); Monocytes % (Manual) 2 % (1-12); Platelet Estimate NORMAL (NORMAL); RBC Morphology ABNORM (NORMAL); Segmented Neutrophils % 95 % (38-78)
--- NOTE | 2018-09-28 10:25 | XRay Report ---
CLINICAL INFORMATION: Interval Change- COPD COMPARISON: 11/22/2016, 03/27/2018 and 09/26/2018 FINDINGS: Heart size, mediastinum and pulmonary vessels are normal. COPD changes with interstitial fibrosis in both lungs, predominantly in the right upper and lower lung, are again noted. Small superimposed infiltrate in the right upper lobe has improved from the previous x-ray two days ago IMPRESSION: Moderate COPD changes with interstitial fibrosis in a small superimposed right upper lobe infiltrate. Infiltrate shows improvement from exam two days ago Interpreted and Authenticated by: Guille Alejandro 09/28/18
[2018-09-28] MEDS: HEPARIN 5,000 UNIT/ML VIAL SQ SCH ×3 (11:05→20:50)
[2018-09-28] MEDS: HYDROCHLOROTHIAZIDE 12.5 MG CAPSULE PO SCH (11:05)
[2018-09-28] MEDS: DOCUSATE SODIUM 100 MG CAPSULE PO SCH ×3 (11:05→20:50)
[2018-09-28] MEDS: MULTIVIT,THER IRON,CA,FA & MIN 1 TABLET PO SCH ×2 (11:05→11:11)
[2018-09-28] MEDS: PANTOPRAZOLE 40 MG TABLET PO SCH (11:05)
[2018-09-28] MEDS: CIPROFLOXACIN 400 MG/200 ML BAG IV SCH ×2 (11:05→20:50)
[2018-09-28] MEDS ORDERED: LORATADINE 10 MG TABLET PO ONE (13:48)
--- NOTE | 2018-09-28 14:26 | Internal Med Progress Note ---
Medical - PN: Subj Patient information: Note initiated : 09/28/18 at 2:23 pm Service Date, if different from initiated Date: [] Patient: Samanta Christopher a 68 y/o F admitted on 09/26/18 for shortness of breath. Chief Complaint: [] Interval history: Ms. 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 She was recently visiting her daughter in [place]. She came back a week ago and since then has been experiencing progressive shortness of breath along with nonpurulent cough and increased expectoration. Samanta is of the opinion that she caught an infection in flight. She denies associated fevers, shaking chills sweats but endorses to significant orthopnea persistent cough with clear sputum. She did not get any relief from her regular inhalers. She also tried an additional 40 mg prednisone dose without much effect. She presents to the ER along with her Martinez with above symptoms. Initial workup was consistent with COPD flare. Patient was started on bronchodilators/IV steroids. His extensive allergy history antibiotics was started. Imaging She denies changes in medications. She denies exposure to smoke. She denies sick contacts. Imaging was suggestive of right upper lobe inflammatory process superimposed on pulmonary fibrosis. Hospitalist service was subsequently consulted At the time of evaluation Ms. Main is remarkably short of breath however she was able to endorse history of above. She denies recent aspiration, hospitalization, antibiotic exposure. She sees [facility] primary care physician. 09/27 Pt seen examined, still short of breath, but somewhat better, but had significant difficulty in breathing, this AM, responds well to nebulizer treatment cough present, wet deep, but not expectoration. 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 induced sputum to be sent to Gram stain/ fungal stain and cultures. Start pt on IV cipro, has used cipro before without any issues. Discussed same with pt, given her broncheatasis, and chr steroid use puts her at high risk for pseudomonas infection. 09/28 Patient seen and examined still short of breath respiration is improved compared to yesterday. Sputum culture is growing gram-negative bacillus identification and sensitivity pending. She remains on IV steroids. I reviewed her case with her director integrated Dr. Tobias who advised to continue with steroids for now, continue IV antibiotics to cover Pseudomonas given her history of same infection in the past await the results of fungal cultures as well as CATE cultures. Total of 10-day of treatment recommended. He will follow -up the patient after discharge Pertinent ROS: Denies headache, dizziness Denies chest pain, palpitations Some improvement in cough and shortness of breath Denies abdominal pain, nausea or vomiting. - Constitutional Vitals: Vital Signs Temp Pulse Resp BP Pulse Ox 98.2 F 95 H 20 129/79 96 09/28/18 11:29 09/28/18 12:25 09/28/18 12:25 09/28/18 11:29 09/28/18 11:29 Period Temp Pulse Resp BP Sys/Sow Pulse Ox Last 24 Hr 97.7 F-98.8 F 20-106 19-98 129-158/64-82 92-99 Intake and Output 09/28/18 09/28/18 09/28/18 05:59 13:59 21:59 Intake Total 300 / 300 Balance 300 / 300 Weight 120 lb Patient Weight 09/29/18 05:59 Weight 120 lb Intake & Output: Intake & Output 09/28/18 09/28/18 09/28/18 05:59 13:59 21:59 Intake Total 300 / 300 Balance 300 / 300 Weight 120 lb Intake: Oral 300 / 300 Exam: Constitutional; Afebrile, cooperative, alert, not in distress. Respiratory system: Air Entry equal on both sides, aldo conducted breath sounds, mild wheeze. CVS- Rate rhythm regular, S1,S2 heard, no gallop, no rub. Abdomen- Soft nontender abdomen, no organomegaly, no tenderness, no guarding or rigidity, SEAM STAYER- AOOx3, moving all extremities, no gross focal deficit noted. Medical - PN: Obj Da - Labs CBC & Chem 7: 09/28/18 04:35 09/28/18 04:35 Labs: Abnormal Lab Results 09/28/18 09/28/18 09/27/18 04:35 04:35 04:31 WBC 12.2 H RDW 15.1 H Gran % Lymph % (Auto) Gran # Lymph # (Auto) Seg Neutrophils % 95 H Band Neutrophils % Lymphocytes % 2 L WBC Morphology Toxic Granulation RBC Morphology Abnorm A Anisocytosis Few A Sodium 130 L 130 L Potassium Chloride 91 L 90 L Glucose 154 H 161 H Phosphorus 2.5 L 2.6 L 09/27/18 09/26/18 09/26/18 04:31 10:12 10:12 WBC 11.1 H RDW 15.3 H 14.7 H Gran % 95.8 H Lymph % (Auto) 2.5 L Gran # 10.6 H Lymph # (Auto) 0.3 L Seg Neutrophils % 81 H Band Neutrophils % 12 H Lymphocytes % 6 L WBC Morphology Abnorm A Toxic Granulation 1+ A RBC Morphology Abnorm A Anisocytosis 1+ A Sodium 132 L Potassium 3.1 L Chloride 90 L Glucose 129 H Phosphorus Meds: Medications Acetaminophen (Tylenol) 650 mg PO Q4-6HP PRN PRN Reason: PAIN/FEVER > 101 Last Admin: 09/27/18 03:15 Dose: 650 mg Albuterol/Ipratropium (Duoneb) 3 ml NEB Q4HRT [facility] Last Admin: 09/28/18 12:25 Dose: 3 ml Docusate Sodium (Colace) 100 mg PO BID [facility] Last Admin: 09/28/18 11:11 Dose: Not Given Guaifenesin/Codeine Phosphate (Robitussin Ac) 10 ml PO Q4HP PRN PRN Reason: Cough Last Admin: 09/27/18 21:00 Dose: 10 ml Heparin Sodium (Porcine) (Heparin) 5,000 unit SQ Q12 [facility] Last Admin: 09/28/18 11:30 Dose: Not Given Hydrochlorothiazide (Oretic) 12.5 mg PO DAILY [facility] Last Admin: 09/28/18 11:05 Dose: 12.5 mg Magnesium Sulfate (Magnesium Sulfate) 2 gm in 50 mls @ 50 mls/hr IV UD PRN PRN Reason: MG = or < 1.7 Acetaminophen (Ofirmev) 800 mg in 80 mls @ 160 mls/hr IV Q6HP PRN PRN Reason: PAIN/FEVER > 101 Last Infusion: 09/27/18 20:30 Dose: Infused Ciprofloxacin (Cipro) 400 mg in 200 mls @ 200 mls/hr IV Q12H [facility] Last Admin: 09/28/18 11:05 Dose: 200 mls/hr Iron Carb/Multivit/Library Attendant/Folic Acid (Multivitamin W/Minerals) 1 tab PO DAILY [facility] [place] Last Admin: 09/28/18 11:11 Dose: Not Given Loratadine (Claritin) 10 mg PO DAILY [facility] Methylprednisolone Sodium Succinate (Solu-Medrol) 60 mg IV Q8 [facility] Last Admin: 09/28/18 14:03 Dose: 60 mg Ondansetron HCl (Zofran) 4 mg IV Q4-6HP PRN PRN Reason: Nausea And Vomiting Pantoprazole Sodium (Protonix) 40 mg PO QAMAC [facility] Last Admin: 09/28/18 11:05 Dose: 40 mg Potassium Chloride (Klor-Con) 40 meq PO DAILYP PRN PRN Reason: K+ < 3.5 Last Admin: 09/26/18 14:56 Dose: 40 meq Senna/Docusate Sodium (Senna Plus Tablet) 1 tab PO HS [facility] Last Admin: 09/27/18 21:01 Dose: Not Given Sodium Chloride (Saline Flush) 10 ml IV Q8 [facility] Last Admin: 09/28/18 14:04 Dose: 10 ml Trazodone HCl (Desyrel) 50 mg PO HSP PRN PRN Reason: Insomnia Last Admin: 09/27/18 20:39 Dose: 50 mg Medical - PN: A/P - Time Spent With Patient Total time spent is greater than 50% in coordination of care (as documented) at patient's floor/unit and/or counseling patient: - Narrative A/P Narrative: A/P Acute copd exacerbation- IV steroids and bronchodilators for now., off oxygen, Broncheatesis/ flare- IV cipro for now, monitor for response. Sputum cx growing gram neg mando, h/o Pseudomonas in the past Shortness of breath due to above, CT neg for PE. h/o HTN- resume home meds once verified Anxiety disorder, on trazodone, DVT sq hep full code
[2018-09-28] MEDS: SENNOSIDES/DOCUSATE SODIUM 1 TAB TABLET PO SCH (20:51)
[2018-09-28] MEDS ORDERED: traZODone HCL 50 MG TABLET PO PRN (21:00)
[2018-09-29] MEDS: IPRATROPIUM/ALBUTEROL 3 ML AMPUL.NEB NEB SCH ×3 (04:13→11:29)
[2018-09-29] MEDS: methylPREDNISolone SOD SUCC 125 MG/2 ML VIAL IV SCH (05:53)
[2018-09-29] MEDS: 0.9 % SODIUM CHLORIDE 10 ML SYRINGE IV SCH (05:54)
[2018-09-29 06:02] LABS: Mean Cell Volume 89.3 fL (80.0-100.0); Mean Corpuscular HGB Conc 32.8 g/dL (31.0-36.0); Mean Corpuscular Hemoglobin 29.3 pg (26.0-34.0); Platelet Count 368 K/mcL (140-440); RBC 4.93 M/mcL (4.00-5.20); Red Cell Distribution Width 15.1 % (11.5-14.5)
[2018-09-29] MEDS: PANTOPRAZOLE 40 MG TABLET PO SCH (06:43)
[2018-09-29 06:45] LABS: ALT/SGPT 12 U/l (0-40); Albumin 3.7 gm/dL (3.2-5.2); Albumin/Globulin Ratio 1.3 (1.0-2.3); Alkaline Phosphatase 43 U/L (39-117); Bilirubin,Direct < 0.2 mg/dL (0.0-0.3); Blood Urea Nitrogen 13 mg/dl (8-23); Gamma Glutamyl Transpeptidase 13 U/L (5-36); Uric Acid 2.7 mg/dL (2.5-8.0)
[2018-09-29] MEDS: DOCUSATE SODIUM 100 MG CAPSULE PO SCH (07:46)
[2018-09-29 08:24] LABS: Band Neutrophils % 3 % (0-10); Lymphocytes % 4 % (15-49); Monocytes % (Manual) 2 % (1-12); Platelet Estimate NORMAL (NORMAL); RBC Morphology NORMAL (NORMAL); Segmented Neutrophils % 91 % (38-78)
[2018-09-29] MEDS: CIPROFLOXACIN 400 MG/200 ML BAG IV SCH (08:25)
[2018-09-29] MEDS: HEPARIN 5,000 UNIT/ML VIAL SQ SCH (08:25)
[2018-09-29] MEDS: HYDROCHLOROTHIAZIDE 12.5 MG CAPSULE PO SCH (08:25)
[2018-09-29] MEDS: MULTIVIT,THER IRON,CA,FA & MIN 1 TABLET PO SCH (08:28)
[2018-09-29] MEDS ORDERED: LORATADINE 10 MG TABLET PO SCH (09:00)
--- NOTE | 2018-09-29 10:58 | Discharge Summary ---
Medical - DS: Prov Patient information: Note initiated : 09/29/18 at 10:54 am Service Date, if different from initiated Date: [] Patient: Samanta Christopher 68 y/o F admitted on 09/26/18 for shortness of breath. Chief Complaint: [] Date of admission: 09/26/18 12:56 Discharge date: 09/29/18 Primary care physician: Brooklynn Noble DO Consults: 09/26/18 Consult to Physician [CONS] Stat Comment: Consulting Provider: Ronny Cox Reason For Exam: Physician to Consult Discharging clinician: Albina Rhodes Medical - DS: Meds - Discharge Medications Prescriptions: Ciprofloxacin HCl [Cipro] 500 mg PO BID #16 tab predniSONE [Prednisone] 40 mg PO [facility] #21 tab Active and Home Medications: Home Medications fluticasone 500 mcg-salmeterol 50 mcg/dose blistr powdr for inhalation 2 inh INHALATION Q12H each 04/01/15 [History Confirmed 09/26/18 Last Taken 09/26/18 05:00] ipratropium-albuterol 0.5 mg-3 mg(2.5 mg base)/3 mL nebulization soln 3 ml INHALATION BID ml 04/01/15 [History Confirmed 09/26/18 Last Taken 09/26/18 05: 00] dextromethorphan-guaifenesin 10 mg-100 mg/5 mL syrup 10 ml PO Q4H PRN #240 ml [Rx Confirmed 09/26/18 Last Taken 09/26/18 02:00] Albuterol Sulfate [Proventil Hfa] 6.7 gm IH Q4HP PRN #1 hfa.aer.ad 07/18/17 [Rx Confirmed 09/26/18 Last Taken 09/26/18 05:00] hydrochlorothiazide 12.5 mg tablet 12.5 mg PO QDAY #90 tab 05/25/18 [Rx Confirmed 09/26/18 Last Taken 09/25/18 07:00] trazodone 50 mg tablet 50 mg PO .COMPLEX PRN #180 tab 06/24/18 [Rx Confirmed 06/06 Last Taken 09/24/18 21:00] lansoprazole 30 mg capsule,delayed release 30 mg PO QDAY #90 cap 08/25/18 [Rx Confirmed 09/26/18 Last Taken 09/25/18 07:00] predniSONE [Prednisone] 40 mg PO DAILY 09/26/18 [History Confirmed 09/26/18 Last Taken 09/26/18 06:00] Albuterol Sulfate [Proair Hfa] 8.5 gm IH PRN PRN 09/27/18 [History Confirmed 07/07 Last Taken Unknown] Medical - DS: Hosp Hospital course: Ms. 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 She was recently visiting her daughter in [place]. She came back a week ago and since then has been experiencing progressive shortness of breath along with nonpurulent cough and increased expectoration. Samanta is of the opinion that she caught an infection in flight. She denies associated fevers, shaking chills sweats but endorses to significant orthopnea persistent cough with clear sputum. She did not get any relief from her regular inhalers. She also tried an additional 40 mg prednisone dose without much effect. She presents to the ER along with her Martinez with above symptoms. Initial workup was consistent with COPD flare. Patient was started on bronchodilators/IV steroids. His extensive allergy history antibiotics was started. Imaging She denies changes in medications. She denies exposure to smoke. She denies sick contacts. Imaging was suggestive of right upper lobe inflammatory process superimposed on pulmonary fibrosis. Hospitalist service was subsequently consulted At the time of evaluation Ms. Main is remarkably short of breath however she was able to endorse history of above. She denies recent aspiration, hospitalization, antibiotic exposure. She sees Brooklynn Noble primary care physician. 09/27 Pt seen examined, still short of breath, but somewhat better, but had significant difficulty in breathing, this AM, responds well to nebulizer treatment cough present, wet deep, but not expectoration. 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 induced sputum to be sent to Gram stain/ fungal stain and cultures. Start pt on IV cipro, has used cipro before without any issues. Discussed same with pt, given her broncheatasis, and chr steroid use puts her at high risk for pseudomonas infection. 09/28 Patient seen and examined still short of breath respiration is improved compared to yesterday. Sputum culture is growing gram-negative bacillus identification and sensitivity pending. She remains on IV steroids. I reviewed her case with her digital cartographer Dr. Tobias who advised to continue with steroids for now, continue IV antibiotics to cover Pseudomonas given her history of same infection in the past await the results of fungal cultures as well as CATE cultures. Total of 10-day of treatment recommended. He will follow -up the patient after discharge 09/29 Patient seen examined, doing much better today, air entry is better, still has some wheeze, but able to ambulate by self, not on oxygen, labs stable, eager to go home. Her microbiology is growing pseudomonas, but sensitivities will not be back for another day. Patient would rather go home than wait. Given previous sensitivity patterns, and clinical response to ciprofloxacin, will discharge the patient on oral cipro for another 8 days to complete a 10 day course. I will call the patient should her sensitivity pattern bucket turner to be resistant to cipro. The patient will also be on a steroid taper. She will follow up with Dr Tobias as outpatient in the next couple of weeks. In Summary: Patient presented with flare of COPD/ Bronchiectasis, sputum cultures is growing pseudomonas species, sensitivity pending but patient had a very good response to IV steroid and ciprofloxacin. Patient will be discharged on oral ciprofloxacin for total of 10 days and a steroid taper with outpatient follow up with her digital cartographer Dr Tobias. Discharge diagnosis: COPD / Broncheatesis exacerbation - Time Spent with Patient Total time spent providing and/or coordinating discharge services: Less than 30 minutes Medical - DS: Exam - Constitutional Vitals: Vital Signs Temp Pulse Pulse Resp BP Pulse Ox 09/29/18 08:16 97.0 F 93 H 18 132/66 91 09/29/18 08:12 88 18 09/29/18 08:06 94 09/29/18 04:00 97.7 F 89 18 146/85 92 09/28/18 22:45 97.6 F 99 H 18 152/77 92 09/28/18 22:22 96 H 20 09/28/18 19:30 96 H 20 09/28/18 19:09 97.8 F 97 H 18 143/81 92 09/28/18 17:00 97.6 F 22 133/73 94 09/28/18 15:55 98 H 20 09/28/18 12:25 95 H 20 09/28/18 11:29 98.2 F 20 129/79 96 Intake and Output 09/28/18 09/29/18 09/29/18 21:59 05:59 13:59 Intake Total 1000 / 1000 260 / 260 680 / 680 Output Total 800 / 800 1100 / 1100 Balance 200 / 200 -840 / -840 680 / 680 Intake: IV 200 / 200 200 / 200 Oral 800 / 800 260 / 260 480 / 480 Output: Void Amount 800 / 800 1100 / 1100 Other: Meal Breakfast Percent of Meal Consumed 100% Urine Appearance Clear Clear Urine Color Dark Yellow Straw Urine Odor Normal Normal # Voids 1 Weight 120 lb 8 oz Additional comments: Constitutional; Afebrile, cooperative, alert, not in distress. Respiratory system: Air Entry equal on both sides, adlo rhonchi, but air entry is better, mild exp wheeze present. no accessory muscle use. CVS- Rate rhythm regular, S1,S2 heard, no gallop, no rub. 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 Medical - DS: Data Labs on day of discharge: Labs from last 24 hours 09/29/18 09/29/18 04:20 04:20 WBC 11.9 H RBC 4.93 Hgb 14.4 Hct 44.0 MCV 89.3 MCH 29.3 MCHC 32.8 RDW 15.1 H Plt Count 368 MPV 8.6 Total Counted 100 Seg Neutrophils % 91 H Band Neutrophils % 3 Lymphocytes % 4 L Monocytes % (Manual) 2 Platelet Estimate Normal RBC Morphology Normal Sodium 133 Potassium 4.2 Chloride 92 L Carbon Dioxide 27 Anion Gap 14.0 BUN 13 Creatinine 0.7 GFR Calculation 88 Glucose 144 H Uric Acid 2.7 Calcium 9.3 Phosphorus 2.2 L Magnesium 2.6 H Total Bilirubin 0.2 Direct Bilirubin < 0.2 GGT 13 AST 20 ALT 12 Alkaline Phosphatase 43 Lactate Dehydrogenase 228 Total Protein 6.6 Albumin 3.7 Globulin 2.9 Albumin/Globulin Ratio 1.3 Triglycerides 83 Preliminary micro results at discharge 09/27/18 12:02 Sputum Culture - Preliminary Sputum - Expectorated Gram negative bacillus Gram negative bacillus#2 09/26/18 17:44 Sputum Culture - Preliminary Sputum - Expectorated Gram negative bacillus Medical - DS: A/P - Patient/Caregiver Discharge Instructions Activity: increase activity as tolerated Diet: Regular Diet Additional Instructions: Take oral ciprofloxacin 500mg twice daily for another 8 days Take oral prednisone 40mg x 3 days, 20mg x 3 days, 10mg x 3 days then go back to your usual home dose of 5mg daily. Take your nebulizer duonebs twice daily, and use rescue inhalers every 4-6 hrs in between for at least 5 days. Then go back to your previous schedule if your breathing is back to baseline. If your breathing gets worse, you have fever or any other acute concern, go to the ER Follow up with Dr Tobias in next 2 weeks. - Follow up Plan Follow up with: Brooklynn Noble DO [Primary Care Provider] - Greg Tobias MD [Physician] - Disposition: Home, Self-Care Prognosis: Fair Rehab Potential: Fair I certify that the patient requires SNF services: No Overall status at discharge: patient is progressing back to baseline
== END 2018-09-29 13:15 | disposition home or self-care (01) | DRG 192 ==
LOC: ED 09:33 → MEDSUR 12:56
PROVIDERS: ADMIT Internal Medicine; ATTEND Internal Medicine
CPT/HCPCS: 84145; 97161; 97166; 99238; J0131; J0744; J1644; J2930; J7620; J7620-GY; J7626; J7626-GY; Q9967

== ENCOUNTER 2018-10-02 11:10 | Observation (INO) ==
[2018-10-02] MEDS ORDERED: CEFEPIME 1 GM VIAL IV ONE ×2 (12:03→13:56)
--- NOTE | 2018-10-02 12:05 | Emergency Department Note ---
SOB HPI - General Chief Complaint: Shortness of Breath/Dyspnea Stated Complaint: PNE, pseudomonas Time Seen by Provider: 10/02/18 11:42 Source: patient Mode of arrival: wheelchair Limitations: no limitations - History of Present Illness This patient was discharged in the hospital on Friday after admission for COPD exacerbation. Her sputum cultures grew Pseudomonas and he was instructed to come back to the hospital for readmission. She feels like her cough is quite bothersome in wearing her out. She is taking prednisone. - Related Data Home Medications Medication Instructions Recorded Confirmed fluticasone 500 mcg-salmeterol 50 2 inh INHALATION Q12H each 04/01/15 10/02/18 mcg/dose blistr powdr for inhalation ipratropium-albuterol 0.5 mg-3 3 ml INHALATION BID ml 04/01/15 10/02/18 mg(2.5 mg base)/3 mL nebulization soln predniSONE [Prednisone] 40 mg PO DAILY 09/26/18 10/02/18 Albuterol Sulfate [Proair Hfa] 8.5 gm IH PRN PRN 09/27/18 10/02/18 Previous Rx's Medication Instructions Recorded dextromethorphan-guaifenesin 10 10 ml PO Q4H PRN #240 ml 12/26/15 mg-100 mg/5 mL syrup Albuterol Sulfate [Proventil Hfa] 6.7 gm IH Q4HP PRN #1 hfa.aer.ad 07/18/17 hydrochlorothiazide 12.5 mg tablet 12.5 mg PO QDAY #90 tab 05/25/18 trazodone 50 mg tablet 50 mg PO .COMPLEX PRN #180 tab 06/24/18 lansoprazole 30 mg capsule,delayed 30 mg PO QDAY #90 cap 08/25/18 release Ciprofloxacin HCl [Cipro] 500 mg PO BID #16 tab 09/29/18 predniSONE [Prednisone] 40 mg PO [facility] #21 tab 09/29/18 Allergies Allergy/AdvReac Type Severity Reaction Status Date / Time aztreonam [From Azactam] Allergy Intermediate Hives Verified 09/26/18 13:28 Penicillins Allergy Intermediate Hives Verified 09/26/18 13:28 budesonide [From Pulmicort] Allergy Unknown Unknown Verified 09/28/18 07:06 Diclofenac [From Voltaren] AdvReac Intermediate Rash Verified 09/26/18 13:12 doxycycline AdvReac Intermediate Rash Verified 09/26/18 13:12 Erythromycin Base AdvReac Intermediate Rash Verified 09/26/18 13:12 levofloxacin [From Levaquin] AdvReac Intermediate Rash Verified 09/26/18 13:12 lorazepam [From Ativan] AdvReac Intermediate Rash Verified 09/26/18 13:12 moxifloxacin [From Avelox] AdvReac Intermediate Rash Verified 09/26/18 13:12 Sulfa (Sulfonamide AdvReac Intermediate Rash Verified 09/26/18 13:12 Antibiotics) sulfamethoxazole AdvReac Intermediate Rash Verified 09/26/18 13:12 [From Septra] trimethoprim [From Septra] AdvReac Intermediate Rash Verified 09/26/18 13:12 Review of Systems All systems ED: reviewed and negative except as stated. Past Medical History - Past Medical History [facility] Narrative: Medical History (Last Updated 09/26/18 @ 10:23 by Eddie Verde DO) Pneumonia (Resolved) Insomnia (Chronic) Bronchiectasis (Chronic) Hypertension (Chronic) Tuberculosis, pulmonary (Resolved) Screening mammogram for high-risk patient (Chronic) Osteoporosis (Chronic) Impaired fasting glucose (Chronic) Hyperlipidemia (Chronic) Dyspnea (Chronic) Cough (Chronic) COPD (chronic obstructive pulmonary disease) (Chronic) Atherosclerosis, generalized (Chronic) Asthma (Chronic) Arthritis (Chronic) Allergic rhinitis (Chronic) Allergic bronchopulmonary aspergillosis (Chronic) Acid reflux (Chronic) Rectal bleeding (Resolved) Urinary tract infection (Resolved) Acute hypokalemia (Inactive) Adenomatous polyp (Inactive) Avulsion of skin of finger (Inactive) Bronchiectasis without acute exacerbation (Inactive) Encounter for Health Maintenance Examination in Adult (Inactive) Health counseling (Inactive) Hypokalemia (Inactive) Laceration (Inactive) Near syncope (Inactive) Osteopenia (Inactive) Pneumonia (Inactive) Rash and nonspecific skin eruption (Inactive) Symptomatic menopausal or female climacteric states (Inactive) Wheezing (Inactive) Past Surgical History (Last Reviewed 09/02/18 @ 10:29 by Brooklynn Noble DO) History of colonoscopy (Inactive) History of esophagogastroduodenoscopy (Inactive) History of lung biopsy (Inactive) S/P partial hysterectomy (Inactive) Family History (Last Reviewed 09/02/18 @ 10:29 by Brooklynn Noble DO) Father Rheumatoid arthritis Essential hypertension Mother Malignant neoplasm of breast Grandmother Malignant neoplasm of liver Cerebrovascular accident Medical history: Reports: COPD, other (recurrent bronchiectasis, 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 Absent: distention, tenderness Neurological: Present: alert Psychiatric: Present: normal affect Skin: Present: warm, dry, intact Course Vital Signs Temperature 98.4 F 10/02/18 11:11 Pulse Rate 85 10/02/18 11:11 Respiratory Rate 17 10/02/18 11:11 Blood Pressure 143/74 10/02/18 11:11 Pulse Oximetry (%) 93 10/02/18 11:11 Temperature 98.4 F 10/02/18 11:11 Pulse Rate 86 10/02/18 12:34 Respiratory Rate 18 10/02/18 11:36 Blood Pressure 120/83 10/02/18 12:34 Pulse Oximetry (%) 95 10/02/18 12:34 Shortness of Breath/Dyspnea - MDM Narrative Medical decision making narrative: I discussed the case with Dr. Rhodes and she will be admitted to the hospital only started cefepime in the emergency room. She does have a Pseudomonas pneumonia. - Lab Data Lab results reviewed: Yes I reviewed the patient's lab results. Result diagrams: 10/02/18 11:41 10/02/18 11:41 Lab Results 10/02/18 10/02/18 Range/Units 11:41 11:41 WBC 19.6 H (4.5-11.0) K/mcL RBC 5.25 H (4.00-5.20) M/mcL Hgb 15.4 H (12.0-15.0) g/dL Hct 46.3 (36.0-48.0) % MCV 88.2 (80.0-100.0) fL MCH 29.3 (26.0-34.0) pg MCHC 33.2 (31.0-36.0) g/dL RDW 14.9 H (11.5-14.5) % Plt Count 469 H (140-440) K/mcL MPV 7.8 (7.4-10.4) fL Gran % 93.0 H (38.0-78.0) % Lymph % (Auto) 4.2 L (15.5-49.0) % Edgar % (Auto) 2.4 (1.0-12.0) % Eos % (Auto) 0.3 (0.0-7.0) % Baso % (Auto) 0.1 (0.0-2.0) % Gran # 18.3 H (1.8-8.0) K/mcL Lymph # (Auto) 0.8 L (1.5-4.8) K/mcL Edgar # (Auto) 0.5 (0.1-0.9) K/mcL Eos # (Auto) 0.1 (0.0-0.7) K/mcL Baso # (Auto) 0 (0.0-0.3) K/mcL Sodium 126 L (133-145) mmol/L Potassium 3.1 L (3.3-5.1) mmol/L Chloride 90 L (96-108) mmol/L Carbon Dioxide 26 (22-30) mmol/L Anion Gap 10.0 (8-16) BUN 18 (8-23) mg/dl Creatinine 0.9 (0.6-1.1) mg/dl GFR Calculation 65 Glucose 102 (70-105) mg/dL Calcium 9.8 (8.6-10.4) mg/dl Total Bilirubin 0.3 (0.0-1.0) mg/dL AST 12 (0-37) U/l ALT 14 (0-40) U/l Alkaline Phosphatase 46 (39-117) U/L Total Protein 6.9 (5.9-8.4) gm/dL Albumin 3.7 (3.2-5.2) gm/dL Globulin 3.2 (2.2-3.7) gm/dL Albumin/Globulin Ratio 1.2 (1.0-2.3) - Radiology Data Radiology results reviewed: Yes I reviewed the patient's radiology results. Disposition Pt seen by USER EXPERIENCE ANALYST/PA only: No Clinical Impression: Community acquired pneumonia, COPD with acute exacerbation Disposition: Xfer As Inpt ([facility]) Condition: Good Referrals: Brooklynn Noble DO [Primary Care Provider] - Time of Disposition: 13:21
--- NOTE | 2018-10-02 12:06 | XRay Report ---
CLINICAL INFORMATION: Cough, recent PNA COMPARISON: Multiple prior x-rays dating back to 11/22/2016 FINDINGS: Heart size, mediastinum and pulmonary vessels are unremarkable. COPD changes and moderate interstitial fibrosis seen - as before. The superimposed right upper lobe infiltrate has cleared with the patient returning to baseline chest x-ray appearance IMPRESSION: Interval clearance right upper lobe infiltrate superimposed upon moderate interstitial fibrosis and COPD. There are no new abnormalities. Interpreted and Authenticated by: Guille Alejandro 10/02/18
[2018-10-02 12:12] LABS: Basophils # (Auto) 0 K/mcL (0.0-0.3); Basophils % (Auto) 0.1 % (0.0-2.0); Eosinophils # (Auto) 0.1 K/mcL (0.0-0.7); Eosinophils % (Auto) 0.3 % (0.0-7.0); Lymphocytes # (Auto) 0.8 K/mcL (1.5-4.8); Lymphocytes % (Auto) 4.2 % (15.5-49.0); Mean Cell Volume 88.2 fL (80.0-100.0); Mean Corpuscular HGB Conc 33.2 g/dL (31.0-36.0); Mean Corpuscular Hemoglobin 29.3 pg (26.0-34.0); Monocytes # (Auto) 0.5 K/mcL (0.1-0.9); Monocytes % (Auto) 2.4 % (1.0-12.0); Platelet Count 469 K/mcL (140-440); RBC 5.25 M/mcL (4.00-5.20); Red Cell Distribution Width 14.9 % (11.5-14.5)
[2018-10-02 12:34] LABS: ALT/SGPT 14 U/l (0-40); Albumin 3.7 gm/dL (3.2-5.2); Albumin/Globulin Ratio 1.2 (1.0-2.3); Alkaline Phosphatase 46 U/L (39-117); Blood Urea Nitrogen 18 mg/dl (8-23)
--- NOTE | 2018-10-02 13:25 | Internal Med History&Physical ---
Medical - H&P: HPI Patient information: Note initiated : 10/02/18 at 1:19 pm Service Date, if different from initiated Date: [] Patient: Samanta Christopher a 68 y/o F admitted on for PNE, Pseudomonas. Chief Complaint: [] History of present illness: Ms. Christopher is a 68 year old F with h/o pulmonary fibrosis, broncheastesis, presented to the ER after was sent there by myself for evaluation of shortness of breath. The patient was recently discharged from this facility by me for COPD exacerbation and bronchiectasis flareup. She was discharged on oral prednisone and oral ciprofloxacin based on the previous sensitivity pattern to Pseudomonas. The patient's sputum had grown Pseudomonas however she had 2 sputum cultures 1 sputum culture was sensitive to fluoroquinolones another sputum culture was resistant to fluoroquinolones. I discussed these results with the patient yesterday and she noted that she was feeling fine. Today her called the hospital saying that she was not doing well she was coughing and very short of breath. I therefore asked him to go to the emergency room for further evaluation. The patient in the emergency room noted that she was just having significant cough and was very tired. And therefore wanted to change her antibiotics. In the emergency room hemodynamically she was stable remained afebrile. Labs show leukocytosis at 19,000 but she is on steroids. Otherwise unremarkable. Chest x-ray shows resolution of right upper lobe infiltrate that was noted on the previous x-rays otherwise no new issues. She does not look as sick as she was during the last admit. Patient is agreeable to change in antibiotics to IV antibiotics. She will be admitted as observation - Constitutional Constitutional: Present: fatigue, weakness. Absent: chills, fever(s) - Cardiovascular Cardiovascular: Present: dyspnea on exertion. Absent: chest pain - Respiratory Respiratory: Present: cough, dyspnea, dyspnea on exertion. Absent: hemoptysis, wheezing - Gastrointestinal Gastrointestinal: Absent: nausea, vomiting Medical - H&P: [facility] Medical history: Medical History (Last Updated 09/26/18 @ 10:23 by Eddie Verde DO) Pneumonia (Resolved) Insomnia (Chronic) Bronchiectasis (Chronic) Hypertension (Chronic) Tuberculosis, pulmonary (Resolved) Screening mammogram for high-risk patient (Chronic) Osteoporosis (Chronic) Impaired fasting glucose (Chronic) Hyperlipidemia (Chronic) Dyspnea (Chronic) Cough (Chronic) COPD (chronic obstructive pulmonary disease) (Chronic) Atherosclerosis, generalized (Chronic) Asthma (Chronic) Arthritis (Chronic) Allergic rhinitis (Chronic) Allergic bronchopulmonary aspergillosis (Chronic) Acid reflux (Chronic) Rectal bleeding (Resolved) Urinary tract infection (Resolved) Acute hypokalemia (Inactive) Adenomatous polyp (Inactive) Avulsion of skin of finger (Inactive) Bronchiectasis without acute exacerbation (Inactive) Encounter for Health Maintenance Examination in Adult (Inactive) Health counseling (Inactive) Hypokalemia (Inactive) Laceration (Inactive) Near syncope (Inactive) Osteopenia (Inactive) Pneumonia (Inactive) Rash and nonspecific skin eruption (Inactive) Symptomatic menopausal or female climacteric states (Inactive) Wheezing (Inactive) Surgical history: Past Surgical History (Last Reviewed 09/02/18 @ 10:29 by Brooklynn Noble DO) History of colonoscopy (Inactive) History of esophagogastroduodenoscopy (Inactive) History of lung biopsy (Inactive) S/P partial hysterectomy (Inactive) Family history: reviewed and not pertinent Medical - H&P: Meds Home Medications Medication Instructions Recorded Confirmed Type fluticasone 500 mcg-salmeterol 50 2 inh INHALATION Q12H each 04/01/15 10/02/18 History mcg/dose blistr powdr for inhalation ipratropium-albuterol 0.5 mg-3 3 ml INHALATION BID ml 04/01/15 10/02/18 History mg(2.5 mg base)/3 mL nebulization soln dextromethorphan-guaifenesin 10 10 ml PO Q4H PRN #240 ml 12/26/15 10/02/18 Rx mg-100 mg/5 mL syrup Albuterol Sulfate [Proventil Hfa] 6.7 gm IH Q4HP PRN #1 hfa.aer.ad 07/18/17 Rx hydrochlorothiazide 12.5 mg tablet 12.5 mg PO QDAY #90 tab 05/25/18 10/02/18 Rx trazodone 50 mg tablet 50 mg PO .COMPLEX PRN #180 tab 06/24/18 10/02/18 Rx lansoprazole 30 mg capsule,delayed 30 mg PO QDAY #90 cap 08/25/18 10/02/18 Rx release predniSONE [Prednisone] 40 mg PO DAILY 09/26/18 10/02/18 History Albuterol Sulfate [Proair Hfa] 8.5 gm IH PRN PRN 09/27/18 10/02/18 History Ciprofloxacin HCl [Cipro] 500 mg PO BID #16 tab 09/29/18 10/02/18 Rx predniSONE [Prednisone] [address] [facility] #21 tab 09/29/18 10/02/18 Rx Allergies Allergy/AdvReac Type Severity Reaction Status Date / Time aztreonam [From Azactam] Allergy Intermediate Hives Verified 09/26/18 13:28 Penicillins Allergy Intermediate Hives Verified 09/26/18 13:28 budesonide [From Pulmicort] Allergy Unknown Unknown Verified 09/28/18 07:06 Diclofenac [From Voltaren] AdvReac Intermediate Rash Verified 09/26/18 13:12 doxycycline AdvReac Intermediate Rash Verified 09/26/18 13:12 Erythromycin Base AdvReac Intermediate Rash Verified 09/26/18 13:12 levofloxacin [From Levaquin] AdvReac Intermediate Rash Verified 09/26/18 13:12 lorazepam [From Ativan] AdvReac Intermediate Rash Verified 09/26/18 13:12 moxifloxacin [From Avelox] AdvReac Intermediate Rash Verified 09/26/18 13:12 Sulfa (Sulfonamide AdvReac Intermediate Rash Verified 09/26/18 13:12 Antibiotics) sulfamethoxazole AdvReac Intermediate Rash Verified 09/26/18 13:12 [From Septra] trimethoprim [From Septra] AdvReac Intermediate Rash Verified 09/26/18 13:12 Medical - H&P: Exam - Constitutional Vitals: Temp Pulse Resp BP Pulse Ox 98.4 F 86 18 120/83 95 10/02/18 11:11 10/02/18 12:34 10/02/18 11:36 10/02/18 12:34 10/02/18 12:34 Exam: Constitutional; Afebrile, cooperative, alert, not in distress. Eyes- No icterus, , No periorbital swelling Ears- Ext ear normal, hearing normal to conversation. Neck- Midline trachea, supple Respiratory system: Air Entry equal on both sides, mild exp wheeze, air entry better than last exam, (few days ago), CVS- Rate rhythm regular, S1,S2 heard, no gallop, no rub. Abdomen- Soft nontender abdomen, no organomegaly, no tenderness, no guarding or rigidity, IDENTIFIER HORSE- AOOx3, moving all extremities, no gross focal deficit noted. Medical - H&P: Reslt - Labs CBC & Chem 7: 10/02/18 11:41 10/02/18 11:41 Labs: Short CBC 10/02/18 Range/Units 11:41 WBC 19.6 H (4.5-11.0) K/mcL Hgb 15.4 H (12.0-15.0) g/dL Hct 46.3 (36.0-48.0) % Plt Count 469 H (140-440) K/mcL BMP 10/02/18 11:41 Sodium 126 L Potassium 3.1 L Chloride 90 L Carbon Dioxide 26 BUN 18 Creatinine 0.9 Glucose 102 Calcium 9.8 Liver Function 10/02/18 Range/Units 11:41 Total Bilirubin 0.3 (0.0-1.0) mg/dL AST 12 (0-37) U/l ALT 14 (0-40) U/l Alkaline Phosphatase 46 (39-117) U/L Albumin 3.7 (3.2-5.2) gm/dL Medical - H&P: A/P - Narrative A/P Narrative: Acute COPD exacerbatin Psueudomnas Broncheatesis Broncheatsis exacerbation Plan admit to med surg as obs IV cefepime to be started get picc line plan to get IV abx as outpatient Pt plans to going [facility] over [facility] weekend if possible Patient to continue with oral steroids and bronchodilators for now. Social History - Tobacco smoking status: Former smoker - Quit Details quit date: 10/20/65 pack-years: 1 - Alcohol alcohol intake frequency: holiday/special occasion only - Substance use substance use type: does not use
[2018-10-02] MEDS ORDERED: HYDROmorphone 2 MG/ML VIAL IV PRN (13:56)
[2018-10-02] MEDS ORDERED: ACETAMINOPHEN 325 MG TABLET PO PRN (13:56)
[2018-10-02] MEDS ORDERED: 0.9 % SODIUM CHLORIDE 10 ML SYRINGE IV PRN (13:56)
[2018-10-02] MEDS ORDERED: ONDANSETRON 4 MG/2 ML VIAL IV PRN (13:56)
[2018-10-02] MEDS ORDERED: oxyCODONE HCL 5 MG TABLET PO PRN (13:56)
[2018-10-02] MEDS ORDERED: NALOXONE HCL 0.4 MG/ML VIAL IV PRN (13:56)
[2018-10-02] MEDS ORDERED: ALBUTEROL SULFATE 2.5 MG/3 ML NEBULIZER NEB PRN (13:56)
[2018-10-02] MEDS ORDERED: guaiFENesin/DEXTROMETHORPHAN ORAL SOL PO PRN (14:12)
[2018-10-02] MEDS ORDERED: POTASSIUM CHLORIDE 40 MEQ in DEXTROSE 5% IN WATER 500 ML IV ONE (15:00)
[2018-10-02] MEDS: IPRATROPIUM/ALBUTEROL 3 ML AMPUL.NEB NEB SCH ×3 (15:14→23:02)
[2018-10-02] MEDS ORDERED: LIDOCAINE 1% 20 ML VIAL IV ONE (16:04)
[2018-10-02] MEDS: 0.9 % SODIUM CHLORIDE 10 ML SYRINGE IV SCH ×3 (16:07→22:37)
[2018-10-02] MEDS ORDERED: POTASSIUM CHLORIDE 20 MEQ TABLET PO ONE (16:57)
[2018-10-02] MEDS: FLUTICASONE/SALMETEROL 500/50 INHALER #14 INH SCH (20:56)
[2018-10-02] MEDS: HEPARIN 5,000 UNIT/ML VIAL SQ SCH (20:56)
[2018-10-02] MEDS ORDERED: traZODone HCL 50 MG TABLET PO PRN (21:00)
[2018-10-02] MEDS: CEFEPIME 2 GM VIAL IV SCH (22:37)
[2018-10-03] MEDS: IPRATROPIUM/ALBUTEROL 3 ML AMPUL.NEB NEB SCH ×2 (03:51→07:16)
[2018-10-03 06:11] LABS: Basophils # (Auto) 0 K/mcL (0.0-0.3); Basophils % (Auto) 0.2 % (0.0-2.0); Eosinophils # (Auto) 0.2 K/mcL (0.0-0.7); Eosinophils % (Auto) 1.1 % (0.0-7.0); Lymphocytes # (Auto) 2.7 K/mcL (1.5-4.8); Lymphocytes % (Auto) 16.7 % (15.5-49.0); Mean Cell Volume 89.7 fL (80.0-100.0); Mean Corpuscular HGB Conc 32.5 g/dL (31.0-36.0); Mean Corpuscular Hemoglobin 29.1 pg (26.0-34.0); Platelet Count 441 K/mcL (140-440); RBC 5.02 M/mcL (4.00-5.20); Red Cell Distribution Width 15.6 % (11.5-14.5)
[2018-10-03 06:32] LABS: ALT/SGPT 15 U/l (0-40); Albumin 3.4 gm/dL (3.2-5.2); Albumin/Globulin Ratio 1.2 (1.0-2.3); Alkaline Phosphatase 41 U/L (39-117); Bilirubin,Direct < 0.2 mg/dL (0.0-0.3); Blood Urea Nitrogen 20 mg/dl (8-23); Gamma Glutamyl Transpeptidase 14 U/L (5-36); Uric Acid 3.5 mg/dL (2.5-8.0)
[2018-10-03] MEDS ORDERED: PANTOPRAZOLE 40 MG TABLET PO SCH (07:30)
[2018-10-03] MEDS ORDERED: predniSONE 20 MG TABLET PO SCH (08:00)
[2018-10-03] MEDS: CEFEPIME 2 GM VIAL IV SCH (08:40)
[2018-10-03] MEDS: HEPARIN 5,000 UNIT/ML VIAL SQ SCH (08:40)
[2018-10-03] MEDS: 0.9 % SODIUM CHLORIDE 10 ML SYRINGE IV SCH ×2 (08:41→11:42)
[2018-10-03] MEDS ORDERED: NON FORMULARY MEDICATION 1 DOSE MISCELL (Lansoprazole [Prevacid] 30 MG) PO SCH (09:00)
[2018-10-03] MEDS ORDERED: HYDROCHLOROTHIAZIDE 12.5 MG CAPSULE PO SCH (09:00)
--- NOTE | 2018-10-03 10:36 | Discharge Summary ---
Medical - DS: Prov Patient information: Note initiated : 10/03/18 at 10:33 am Service Date, if different from initiated Date: [] Patient: Samanta Christopher 68 y/o F admitted on 10/02/18 for PNE, Pseudomonas. Chief Complaint: [] Date of admission: 10/02/18 13:33 Discharge date: 10/03/18 Primary care physician: Brooklynn Noble DO Consults: 10/02/18 12:04 Consult to Physician [CONS] Stat Comment: Consulting Provider: Albina Rhodes Reason For Exam: Physician to Consult Discharging clinician: Albina Rhodes Medical - DS: Meds - Discharge Medications Prescriptions: Cefepime [Maxipime] 2 gm IV Q12H #18 vial Active and Home Medications: Home Medications fluticasone 500 mcg-salmeterol 50 mcg/dose blistr powdr for inhalation 2 inh INHALATION Q12H each 04/01/15 [History Confirmed 10/02/18 Last Taken 09/26/18 05:00] ipratropium-albuterol 0.5 mg-3 mg(2.5 mg base)/3 mL nebulization soln 3 ml INHALATION BID ml 04/01/15 [History Confirmed 10/02/18 Last Taken 10/02/18 08: 00] dextromethorphan-guaifenesin 10 mg-100 mg/5 mL syrup 10 ml PO Q4H PRN #240 ml [Rx Confirmed 10/02/18 Last Taken 09/26/18 02:00] Albuterol Sulfate [Proventil Hfa] 6.7 gm IH Q4HP PRN #1 hfa.aer.ad 07/18/17 [Rx Confirmed 10/02/18 Last Taken 09/26/18 05:00] hydrochlorothiazide 12.5 mg tablet 12.5 mg PO QDAY #90 tab 05/25/18 [Rx Confirmed 10/02/18 Last Taken 10/01/18 08:00] trazodone 50 mg tablet 50 mg PO .COMPLEX PRN #180 tab 06/24/18 [Rx Confirmed Last Taken 10/01/18 21:00] lansoprazole 30 mg capsule,delayed release 30 mg PO QDAY #90 cap 11/06/18 [Rx Confirmed 10/02/18 Last Taken 09/25/18 07:00] predniSONE [Prednisone] 40 mg PO DAILY 09/26/18 [History Confirmed 10/02/18 Last Taken 10/02/18 08:00] Albuterol Sulfate [Proair Hfa] 8.5 gm IH PRN PRN 09/27/18 [History Confirmed Last Taken Unknown] Ciprofloxacin HCl [Cipro] 500 mg PO BID #16 tab 09/29/18 [Rx Confirmed 10/02/18 Last Taken 10/02/18 06:30] predniSONE [Prednisone] 40 mg PO [facility] #21 tab 09/29/18 [Rx Confirmed 10/02/18 Last Taken Unknown] Medical - DS: Hosp Hospital course: Ms. Christopher is a 68 year old F with h/o pulmonary fibrosis, bronchiectasis, presented to the ER after was sent there by myself for evaluation of shortness of breath. The patient was recently discharged from this facility by me for COPD exacerbation and bronchiectasis flare up. She was discharged on oral prednisone and oral ciprofloxacin based on the previous sensitivity pattern to Pseudomonas. The patient's sputum had grown Pseudomonas however she had 2 sputum cultures 1 sputum culture was sensitive to fluoroquinolones another sputum culture was resistant to fluoroquinolones. I discussed these results with the patient yesterday and she noted that she was feeling fine. Today her called the hospital saying that she was not doing well she was coughing and very short of breath. I therefore asked him to go to the emergency room for further evaluation. The patient in the emergency room noted that she was just having significant cough and was very tired. And therefore wanted to change her antibiotics. In the emergency room hemodynamically she was stable remained afebrile. Labs show leukocytosis at 19,000 but she is on steroids. Otherwise unremarkable. Chest x-ray shows resolution of right upper lobe infiltrate that was noted on the previous x-rays otherwise no new issues. She does not look as sick as she was during the last admit. Patient is agreeable to change in antibiotics to IV antibiotics. Patient was admitted to the hospital for observation status, She was started on IV cefepime 2gms q12 which she tolerated well. She is wanting to be discharged today, This AM her Wbc count is trending down, her sodium and potassium have normalized She will be discharged back home. She will go to [facility] for a PICC line placement, and plans to go to [facility] tomorrow. Discharge diagnosis: Broncheatesis Flare up/ Pseudomonas - Time Spent with Patient Total time spent providing and/or coordinating discharge services: Greater than 30 minutes Medical - DS: Exam - Constitutional Vitals: Vital Signs Temp Pulse Pulse Pulse Resp BP BP 10/03/18 07:16 86 18 10/03/18 06:17 97.5 F 20 118/61 10/03/18 03:40 98.0 F 69 20 123/63 10/02/18 23:15 97.8 F 90 20 116/71 10/02/18 23:03 97 H 16 10/02/18 19:32 99 H 20 10/02/18 19:15 98.2 F 82 20 119/70 10/02/18 16:00 98.9 F 18 137/72 10/02/18 15:16 88 20 10/02/18 13:45 98.9 F 72 18 126/67 10/02/18 12:34 86 120/83 10/02/18 12:31 85 120/83 10/02/18 12:22 73 140/77 10/02/18 11:46 78 136/78 10/02/18 11:36 18 10/02/18 11:32 77 141/78 10/02/18 11:11 98.4 F 85 17 143/74 Pulse Ox 10/03/18 07:16 10/03/18 06:17 94 10/03/18 03:40 95 10/02/18 23:15 94 10/02/18 23:03 10/02/18 19:32 10/02/18 19:15 93 10/02/18 16:00 94 10/02/18 15:16 10/02/18 13:45 94 10/02/18 12:34 95 10/02/18 12:31 95 10/02/18 12:22 94 10/02/18 11:46 94 10/02/18 11:36 10/02/18 11:32 96 10/02/18 11:11 93 Intake and Output 10/02/18 10/03/18 10/03/18 21:59 05:59 13:59 Intake Total 480 / 480 150 / 150 1020 / 1020 Output Total 550 / 550 300 / 300 125 / 125 Balance -70 / -70 -150 / -150 895 / 895 Intake: Oral 480 / 480 150 / 150 1020 / 1020 Output: Void Amount 550 / 550 300 / 300 125 / 125 Other: Meal Breakfast Percent of Meal Consumed 100% Feeding Ability Independent Urine Appearance Clear Clear Clear Urine Color Dark Yellow Dark Yellow Bright Yellow Urine Odor Normal Normal # Voids 1 Additional comments: Constitutional; Afebrile, cooperative, alert, not in distress. Eyes- No icterus, , No periorbital swelling Ears- Ext ear normal, hearing normal to conversation. Neck- Midline trachea, supple Respiratory system: Air Entry equal on both sides, No crackles or wheezing, no rhonchi. CVS- Rate rhythm regular, S1,S2 heard, no gallop, no rub. Abdomen- Soft nontender abdomen, no organomegaly, no tenderness, no guarding or rigidity, NEWS DIRECTOR- AOOx3, moving all extremities, no gross focal deficit noted. Medical - DS: Data Labs on day of discharge: Labs from last 24 hours 10/03/18 10/03/18 10/02/18 04:15 04:15 11:41 WBC 16.0 H RBC 5.02 Hgb 14.6 Hct 45.0 MCV 89.7 MCH 29.1 MCHC 32.5 RDW 15.6 H Plt Count 441 H MPV 7.8 Gran % 76.0 Lymph % (Auto) 16.7 Terrell % (Auto) 6.0 Eos % (Auto) 1.1 Baso % (Auto) 0.2 Gran # 12.2 H Lymph # (Auto) 2.7 Terrell # (Auto) 1.0 H Eos # (Auto) 0.2 Baso # (Auto) 0 Sodium 133 126 L Potassium 3.7 3.1 L Chloride 96 90 L Carbon Dioxide 24 26 Anion Gap 13.0 10.0 BUN 20 18 Creatinine 1.0 0.9 GFR Calculation 57 65 Glucose 86 102 Uric Acid 3.5 Calcium 9.1 9.8 Phosphorus 3.3 Magnesium 2.2 Total Bilirubin 0.3 0.3 Direct Bilirubin < 0.2 GGT 14 AST 10 12 ALT 15 14 Alkaline Phosphatase 41 46 Lactate Dehydrogenase 211 Total Protein 6.3 6.9 Albumin 3.4 3.7 Globulin 2.9 3.2 Albumin/Globulin Ratio 1.2 1.2 Triglycerides 64 10/02/18 11:41 WBC 19.6 H RBC 5.25 H Hgb 15.4 H Hct 46.3 MCV 88.2 MCH 29.3 MCHC 33.2 RDW 14.9 H Plt Count 469 H MPV 7.8 Gran % 93.0 H Lymph % (Auto) 4.2 L Terrell % (Auto) 2.4 Eos % (Auto) 0.3 Baso % (Auto) 0.1 Gran # 18.3 H Lymph # (Auto) 0.8 L Terrell # (Auto) 0.5 Eos # (Auto) 0.1 Baso # (Auto) 0 Sodium Potassium Chloride Carbon Dioxide Anion Gap BUN Creatinine GFR Calculation Glucose Uric Acid Calcium Phosphorus Magnesium Total Bilirubin Direct Bilirubin GGT AST ALT Alkaline Phosphatase Lactate Dehydrogenase Total Protein Albumin Globulin Albumin/Globulin Ratio Triglycerides Medical - DS: A/P - Patient/Caregiver Discharge Instructions Activity: increase activity as tolerated Diet: Regular Diet Additional Instructions: Get PICC line placed at [facility] IV cefepime 2gms q12h via picc line for 9 more days. D/C PICC line after last dose of antibiotic PICC care as per outpatient facility protocol. I have spoken with Dr Ramy Samson, Physician at [facility], who noted that he will pass on the information to his colleague tomorrow to facilitate the IV antibiotics. Follow up with Dr Tobias as previously scheduled Stop the ciprofloxacin, continue rest of medications as per previous plan. - Follow up Plan Follow up with: Brooklynn Noble DO [Primary Care Provider] - Disposition: Home, Self-Care Prognosis: Fair Rehab Potential: Fair I certify that the patient requires SNF services: No Overall status at discharge: patient is progressing back to baseline
[2018-10-03] MEDS: FLUTICASONE/SALMETEROL 500/50 INHALER #14 INH SCH (11:43)
== END 2018-10-03 10:55 | disposition home or self-care (01) ==
LOC: MEDSUR 11:10 → ED 11:10 → MEDSUR 13:55
PROVIDERS: ADMIT Internal Medicine; ATTEND Internal Medicine
CPT/HCPCS: 99217; 99219; G0378; J0692; J1644; J2405; J3480; J7060; J7620; J7620-GY

== ENCOUNTER 2019-02-24 07:46 | Inpatient (IN) ==
--- NOTE | 2019-02-24 08:52 | XRay Report ---
CLINICAL INFORMATION: History of pseudomonas infection. Coughing and chest pain TECHNIQUE: PA chest x-ray. Oblique views of the right ribs COMPARISON: Previous chest x-ray dated 12/12/2018 FINDINGS: Patient has undergone previous right thoracotomy with resection of the right sixth rib. There are multiple surgical sutures and clips in the right upper hemithorax. No detectable acute right rib fractures. There is a right pneumothorax. This is estimated at approximately 35%. Dr. Gottlieb was called with these results, 02/24/2019, 0840. There is a small amount of right pleural fluid at the right lung base. Underlying right lung is abnormal. It is not optimally evaluated due to volume loss and pneumothorax. There are poorly defined parenchymal densities which are at least partially chronic. No left parenchymal infiltrate. No left pneumothorax. Heart size and mediastinum are negative. No mediastinal enlargement. Right hilum is retracted superiorly due to to chronic lung disease and surgical change. IMPRESSION: 1. Right hydropneumothorax. Pneumothorax is estimated at 35% 2. No acute right rib fracture 3. Chronic right lung disease and postsurgical change Interpreted and Authenticated by: Guille Mcgee 02/24/19
--- NOTE | 2019-02-24 08:53 | Emergency Department Note ---
General Adult HPI - General Chief complaint: Rib Pain Stated complaint: Pain under right breast after coughing this tinn Time Seen by Provider: 02/24/19 08:21 Source: EMS Mode of arrival: EMS Limitations: no limitations - History of Present Illness HPI Narrative: Patient states she is been coughing and she heard a pop in the right side is having pain on the right side beneath the right breast. s breath sounds are decreased on the right side he has a history of COPD is oxygen dependent. Complaining of chest pain and shortness of breath.Pulse is 101 the respirations are 22 blood pressure is 139/79 pulse ox 98% on 2 L rates the pain is a 7/10. - Related Data Home Medications Medication Instructions Recorded Confirmed fluticasone 500 mcg-salmeterol 50 2 inh INHALATION Q12H each 04/01/15 01/14/19 mcg/dose blistr powdr for inhalation ipratropium-albuterol 0.5 mg-3 3 ml INHALATION BID ml 04/01/15 01/14/19 mg(2.5 mg base)/3 mL nebulization soln predniSONE [Prednisone] 40 mg PO DAILY 09/26/18 01/14/19 Albuterol Sulfate [Proair Hfa] 8.5 gm IH PRN PRN 09/27/18 01/14/19 Previous Rx's Medication Instructions Recorded dextromethorphan-guaifenesin 10 10 ml PO Q4H PRN #240 ml 12/26/15 mg-100 mg/5 mL oral syrup Albuterol Sulfate [Proventil Hfa] 6.7 gm IH Q4HP PRN #1 hfa.aer.ad 07/18/17 hydrochlorothiazide 12.5 mg tablet 12.5 mg PO QDAY #90 tab 05/25/18 predniSONE [Prednisone] 40 mg PO QAC #21 tab 09/29/18 Acetaminophen [Tylenol] 650 mg PO Q6HP PRN tab 10/03/18 Cefepime [Maxipime] 2 gm IV Q12H #18 vial 10/03/18 ciprofloxacin 500 mg tablet 500 mg PO BID #28 tab 01/14/19 prednisone 10 mg tablet See Rx Instructions PO .COMPLEX 01/14/19 #70 tab lansoprazole 30 mg capsule,delayed 30 mg PO QDAY #90 cap 01/19/19 release trazodone 50 mg tablet 50 mg PO .COMPLEX PRN #180 tab 02/08/19 Allergies Allergy/AdvReac Type Severity Reaction Status Date / Time aztreonam [From Azactam] Allergy Intermediate Hives Verified 02/24/19 07:47 Penicillins Allergy Intermediate Hives Verified 02/24/19 07:47 budesonide [From Pulmicort] Allergy Unknown Unknown Verified 02/24/19 07:47 Diclofenac [From Voltaren] AdvReac Intermediate Rash Verified 02/24/19 07:47 doxycycline AdvReac Intermediate Rash Verified 02/24/19 07:47 Erythromycin Base AdvReac Intermediate Rash Verified 02/24/19 07:47 levofloxacin [From Levaquin] AdvReac Intermediate Rash Verified 02/24/19 07:47 lorazepam [From Ativan] AdvReac Intermediate Rash Verified 02/24/19 07:47 moxifloxacin [From Avelox] AdvReac Intermediate Rash Verified 02/24/19 07:47 Sulfa (Sulfonamide AdvReac Intermediate Rash Verified 02/24/19 07:47 Antibiotics) sulfamethoxazole AdvReac Intermediate Rash Verified 02/24/19 07:47 [From Septra] trimethoprim [From Septra] AdvReac Intermediate Rash Verified 02/24/19 07:47 Review of Systems All systems ED: reviewed and negative except as stated. Cardiovascular: Reports: chest pain Respiratory: Reports: shortness of breath, cough Gastrointestinal: Denies: abdominal pain Genitourinary: Reports: dysuria Musculoskeletal: Reports: back pain Integumentary: Denies: rash Past Medical History - Past Medical History [facility] Narrative: All Active Problems (Last Updated 02/22/19 @ 14:38 by Jaylyn Mendez) Achalasia (Chronic) COPD with acute exacerbation (Acute) Viral upper respiratory infection (Acute) Abnormal chest x-ray (Acute) Hypokalemia (Acute) Hyponatremia (Acute) Community acquired pneumonia (Acute) COPD with acute exacerbation (Acute) Esophageal foreign body (Acute) Current chronic use of systemic steroids (Chronic) Acute exacerbation of chronic obstructive airways disease (Acute) Pulmonary fibrosis (Chronic) Insomnia (Chronic) Bronchiectasis (Chronic) Hypertension (Chronic) Screening mammogram for high-risk patient (Chronic) Osteoporosis (Chronic) Impaired fasting glucose (Chronic) Hyperlipidemia (Chronic) Dyspnea (Chronic) Cough (Chronic) COPD (chronic obstructive pulmonary disease) (Chronic) Atherosclerosis, generalized (Chronic) Asthma (Chronic) Arthritis (Chronic) Allergic rhinitis (Chronic) Allergic bronchopulmonary aspergillosis (Chronic) Acid reflux (Chronic) Past Surgical History (Last Updated 02/22/19 @ 14:38 by Jaylyn Mendez) History of colonoscopy (Chronic) History of esophagogastroduodenoscopy (EGD) (Chronic) History of colonoscopy (Inactive) History of esophagogastroduodenoscopy (Inactive) History of lung biopsy (Inactive) S/P partial hysterectomy (Inactive) Family History (Last Reviewed 01/14/19 @ 11:35 by Brooklynn Noble DO) Father Rheumatoid arthritis Essential hypertension Mother Malignant neoplasm of breast Grandmother Malignant neoplasm of liver Cerebrovascular accident Medical history: Reports: COPD, other (recurrent bronchiectasis, 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) Psychiatric history: Reports: no psych history CAR OILER history: Reports: non-contributory Surgical history ED: Reports: non-contributory - Social History smoking status: Former smoker Alcohol use: Reports: None Drug use: Reports: none Physical Exam Limitations: no limitations General appearance: alert Head: atraumatic, normocephalic Eye: Present: normal appearance, PERRL ENT: normal exam, normal oropharynx Neck: Present: normal inspection, full ROM, trachea midline Chest: Present: tenderness Respiratory: Present: other (Decreased breath sounds on the right) Cardiovascular: Present: regular rate, normal rhythm Abdominal: Present: soft, normal bowel sounds. Absent: distention, tenderness, guarding, rebound, rigidity Extremities: Present: normal inspection, full ROM. Absent: tenderness Back: Present: normal inspection, full ROM. Absent: tenderness Neurological: Present: alert, oriented X3, CN II-XII intact Psychiatric: Present: normal affect, normal mood Skin: Present: warm, cool, dry Course Vital Signs Pulse Rate 101 H 02/24/19 07:47 Respiratory Rate 22 02/24/19 07:47 Blood Pressure 139/79 02/24/19 07:47 Pulse Oximetry (%) 98 02/24/19 07:47 Pulse Rate 101 H 02/24/19 07:47 Respiratory Rate 22 02/24/19 07:47 Blood Pressure 139/79 02/24/19 07:47 Pulse Oximetry (%) 98 02/24/19 07:47 Medical Decision Making - MDM Narrative Medical decision making narrative: Chest x-ray reveals a 30% pneumothorax on the right. Dr. Sinha contacted patient to be admitted to the floor and he will evaluate for chest tube - Lab Data Result diagrams: 02/24/19 08:31 Lab Results 02/24/19 Range/Units 08:31 POC Hct 47.0 (36.0-48.0) % POC Sodium 133 (133-145) mmol/L POC Potassium 3.3 (3.3-5.1) mmol/L POC Chloride 95 L (96-108) mmol/L POC Total CO2 30 (22-30) mmol/L POC BUN 14 (8-23) mg/dl POC Creatinine 0.7 (0.6-1.1) mg/dl POC Glucose 108 H (70-105) mg/dL POC WB Ioniz Calcium 1.16 (1.16-1.32) mmol/L Disposition Pt seen by FINANCE INSURANCE MANAGER/PA only: No Clinical Impression: Pneumothorax, right Disposition: Xfer As Inpt ([facility]) Condition: Fair Referrals: Brooklynn Noble DO [Primary Care Provider] -
[2019-02-24 09:21] LABS: Basophils # (Auto) 0 K/mcL (0.0-0.3); Basophils % (Auto) 0 % (0.0-2.0); Eosinophils # (Auto) 0 K/mcL (0.0-0.7); Eosinophils % (Auto) 0.1 % (0.0-7.0); Granulocytes % (Auto) 95.2 % (38.0-78.0); Lymphocytes # (Auto) 0.5 K/mcL (1.5-4.8); Lymphocytes % (Auto) 2.3 % (15.5-49.0); Mean Cell Volume 88.4 fL (80.0-100.0); Mean Corpuscular HGB Conc 32.8 g/dL (31.0-36.0); Monocytes # (Auto) 0.6 K/mcL (0.1-0.9); Monocytes % (Auto) 2.4 % (1.0-12.0); Platelet Count 392 K/mcL (140-440); RBC 5.01 M/mcL (4.00-5.20); Red Cell Distribution Width 14.7 % (11.5-14.5)
[2019-02-24] MEDS ORDERED: ACETAMINOPHEN 325 MG TABLET PO PRN (10:10)
[2019-02-24] MEDS ORDERED: HYDROmorphone 2 MG/ML VIAL IV ONE (16:36)
--- NOTE | 2019-02-24 16:57 | XRay Report ---
INDICATION: Status post right chest tube placement. Right pneumothorax TECHNIQUE: AP chest x-ray,portable semiupright COMPARISON: Previous right rib series dated 02/24/2019 FINDINGS:Status post placement of a right-sided chest tube. Chest tube tip is projected over the right mid lung. Pneumothorax is significantly decreased. There is a residual right apical pneumothorax estimated at approximately 9%. There is mild subcutaneous emphysema IMPRESSION: 1. Right-sided chest tube placement 2. Significant decrease in right pneumothorax Interpreted and Authenticated by: Guille Mcgee 02/24/19
--- NOTE | 2019-02-24 16:57 | General Surg History&Physical ---
History of Present Illness Patient information: Note initiated : 02/24/19 at 4:55 pm Service Date, if different from initiated Date: [] Patient: Samanta Christopher 68 y/o F admitted on 02/24/19 for Pain Under Rt Breast After Coughing This AM. Chief Complaint: [] HPI: Ms. Christopher is a 68 year old F with history of acute spontaneous pneumothorax on the right side. The patient has a long history of severe bacterial lung disease. 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 She also had allergic bronchopulmonary aspergillosis. These were treated successfully. Presently she has chronic respiratory bronchiectasis and pulmonary fibrosis with secondary infection with Pseudomonas. She is to start on ceftaz again today. She'll awaken about 7:30 this morning and took her regular nebulizer therapy. After that she developed severe coughing as per usual, but she developed more severe pain. Because of increasing pain and shortness of breath. She was seen in the emergency room and chest x-ray showed about a 35% pneumothorax. The patient was counseled for right closed tube thoracostomy and this was performed at the bedside under local anesthesia. Review of Systems - Respiratory cough, dyspnea on exertion, pain on inspirtation, excessive phlegm production, change in phlegm color, pain with cough - Gastrointestinal no abdominal pain, no dysphagia, no nausea, no vomiting - Musculoskeletal arthralgias - Psychiatric anxiety, depression - Hematologic/Lymphatic no easy bleeding, no easy bruising, no lymphadenopathy Past History Past medical history: hypertension Gastroesophageal reflux disease. History of dysphasia with esophageal obstruction Past surgical history: Right open lung biopsy. Abdominal hysterectomy Past family history: hypertension liver cancer , breast cancer. Stroke Past social history: Former smoker. Occasional alcohol use Denies drug use Medications and Allergies Home Medications Medication Instructions Recorded Confirmed Type fluticasone 500 mcg-salmeterol 50 2 inh INHALATION Q12H each 04/01/15 02/24/19 History mcg/dose blistr powdr for inhalation ipratropium-albuterol 0.5 mg-3 3 ml INHALATION BID ml 04/01/15 02/24/19 History mg(2.5 mg base)/3 mL nebulization soln dextromethorphan-guaifenesin 10 10 ml PO Q4H PRN #240 ml 12/26/15 02/24/19 Rx mg-100 mg/5 mL oral syrup Albuterol Sulfate [Proventil Hfa] 6.7 gm IH Q4HP PRN #1 hfa.aer.ad 07/18/17 02/24/19 Rx hydrochlorothiazide 12.5 mg tablet 12.5 mg PO QDAY #90 tab 05/25/18 02/24/19 Rx predniSONE [Prednisone] 40 mg PO DAILY 09/26/18 02/24/19 History Albuterol Sulfate [Proair Hfa] 8.5 gm IH PRN PRN 09/27/18 02/24/19 History predniSONE [Prednisone] 40 mg PO QAMCC #21 tab 09/29/18 02/24/19 Rx Acetaminophen [Tylenol] 650 mg PO Q6HP PRN tab 10/03/18 02/24/19 Rx Cefepime [Maxipime] 2 gm IV Q12H #18 vial 10/03/18 02/24/19 Rx prednisone 10 mg tablet See Rx Instructions PO .COMPLEX 01/14/19 02/24/19 Rx #70 tab lansoprazole 30 mg capsule,delayed 30 mg PO QDAY #90 cap 01/19/19 02/24/19 Rx release trazodone 50 mg tablet 50 mg PO .COMPLEX PRN #180 tab 02/08/19 02/24/19 Rx Allergies Allergy/AdvReac Type Severity Reaction Status Date / Time aztreonam [From Azactam] Allergy Intermediate Hives Verified 02/24/19 07:47 Penicillins Allergy Intermediate Hives Verified 02/24/19 07:47 budesonide [From Pulmicort] Allergy Unknown Unknown Verified 02/24/19 07:47 Diclofenac [From Voltaren] AdvReac Intermediate Rash Verified 02/24/19 07:47 doxycycline AdvReac Intermediate Rash Verified 02/24/19 07:47 Erythromycin Base AdvReac Intermediate Rash Verified 02/24/19 07:47 levofloxacin [From Levaquin] AdvReac Intermediate Rash Verified 02/24/19 07:47 lorazepam [From Ativan] AdvReac Intermediate Rash Verified 02/24/19 07:47 moxifloxacin [From Avelox] AdvReac Intermediate Rash Verified 02/24/19 07:47 Sulfa (Sulfonamide AdvReac Intermediate Rash Verified 02/24/19 07:47 Antibiotics) sulfamethoxazole AdvReac Intermediate Rash Verified 02/24/19 07:47 [From ] trimethoprim [From ] AdvReac Intermediate Rash Verified 02/24/19 07:47 Exam Temp Pulse Resp BP Pulse Ox 98.8 F 93 H 22 144/93 99 02/24/19 14:52 02/24/19 15:15 02/24/19 15:15 02/24/19 15:15 02/24/19 15:15 - General physical appearance well developed, well nourished, moderate distress, moderate pain, chronically ill - Eyes PERRL, normal ocular movement - ENT normal pinna, normal nares, normal mucosa, no hearing loss, no congestion - Head Head exam IM: Present: atraumatic, normocephalic - Neck no masses, no bruits, trachea midline, no lymphadenopathy, no venous distension - Cardiovascular Cardiovascular exam IM: Present: normal rate and rhythm, RRR, +S1, +S2. Absent: JVD, tachycardia - Respiratory clear to percussion, other (splinting on the right chest; decreased breath sounds on the right side; coarse tubular breath sounds bilaterally) - Abdomen Abdomen: Present: soft, non tender, bowel sounds Hernia: Present: none - Genitourinary Present: normal external genitalia - Integumentary Present: no rash, no growths, no abnormal pigmentation - Neurologic Present: normal coordination, normal sensation - Musculoskeletal Present: normal gait, normal posture - Psychiatric Present: oriented to time, oriented to person, oriented to place, speech is normal, memory intact Assessment and Plan (1) Pneumothorax, right Chest tube to continuous suction at 20 cm water Delayed chest x-ray. Continue ceftazidime. Continue home nebulizers and inhalers Status: Acute (2) Bronchiectasis Status: Chronic Qualifiers: Bronchiectasis type: with acute exacerbation Qualified Code(s): J47.1 - Bronchiectasis with (acute) exacerbation (3) COPD (chronic obstructive pulmonary disease) Status: Chronic Qualifiers: COPD type: unspecified COPD Qualified Code(s): J44.9 - Chronic obstructive pulmonary disease, unspecified; J44.9 - Chronic obstructive pulmonary disease, unspecified; J44.9 - Chronic obstructive pulmonary disease, unspecified; J44.9 - Chronic obstructive pulmonary disease, unspecified (4) Pneumonia due to Pseudomonas species Will continue IV ceftazidime Status: Acute
[2019-02-24] MEDS ORDERED: guaiFENesin/DEXTROMETHORPHAN ORAL SOL PO PRN (17:07)
[2019-02-24] MEDS ORDERED: ALBUTEROL SULFATE 1 PUFF INHALER IH PRN ×2 (17:07)
[2019-02-24] MEDS ORDERED: FLUTICASONE/SALMETEROL 500/50 INHALER #14 INH SCH (17:15)
[2019-02-24] MEDS ORDERED: CEFEPIME 2 GM VIAL IV SCH (17:15)
[2019-02-24] MEDS: 0.9 % SODIUM CHLORIDE 1,000 ML IV SCH ×2 (17:41→20:47)
[2019-02-24] MEDS: IPRATROPIUM/ALBUTEROL 3 ML AMPUL.NEB NEB SCH (19:41)
[2019-02-24] MEDS: HYDROmorphone 2 MG/ML VIAL IV PRN (21:32)
[2019-02-24] MEDS: traZODone HCL 50 MG TABLET PO PRN (21:40)
[2019-02-25] MEDS: HYDROmorphone 2 MG/ML VIAL IV PRN ×7 (00:30→21:15)
[2019-02-25] MEDS: IPRATROPIUM/ALBUTEROL 3 ML AMPUL.NEB NEB SCH ×4 (00:30→19:53)
[2019-02-25] MEDS: ACETAMINOPHEN 325 MG TABLET PO PRN ×4 (00:56→19:51)
[2019-02-25] MEDS: 0.9 % SODIUM CHLORIDE 1,000 ML IV SCH ×3 (03:47→23:57)
[2019-02-25 05:56] LABS: Basophils # (Auto) 0 K/mcL (0.0-0.3); Basophils % (Auto) 0.2 % (0.0-2.0); Eosinophils # (Auto) 0.1 K/mcL (0.0-0.7); Eosinophils % (Auto) 0.8 % (0.0-7.0); Granulocytes % (Auto) 82.8 % (38.0-78.0); Lymphocytes # (Auto) 1.3 K/mcL (1.5-4.8); Lymphocytes % (Auto) 10.6 % (15.5-49.0); Mean Cell Volume 89.1 fL (80.0-100.0); Mean Corpuscular HGB Conc 33.2 g/dL (31.0-36.0); Monocytes # (Auto) 0.7 K/mcL (0.1-0.9); Monocytes % (Auto) 5.6 % (1.0-12.0); Platelet Count 344 K/mcL (140-440); RBC 4.03 M/mcL (4.00-5.20); Red Cell Distribution Width 14.9 % (11.5-14.5)
[2019-02-25 06:30] LABS: ALT/SGPT 12 U/l (0-40); Albumin 2.6 gm/dL (3.2-5.2); Albumin/Globulin Ratio 1.1 (1.0-2.3); Alkaline Phosphatase 34 U/L (39-117); Bilirubin,Direct < 0.2 mg/dL (0.0-0.3); Blood Urea Nitrogen 12 mg/dl (8-23); Gamma Glutamyl Transpeptidase 13 U/L (5-36); Uric Acid 3.5 mg/dL (2.5-8.0)
[2019-02-25] MEDS: PANTOPRAZOLE 40 MG TABLET PO SCH (07:11)
--- NOTE | 2019-02-25 07:44 | XRay Report ---
CLINICAL INFORMATION: Pneumothorax TECHNIQUE: AP portable semiupright chest x-ray COMPARISON: Previous prechest tube and post chest tube chest x-rays dated 02/24/2019 FINDINGS: No change in position of right-sided chest tube. Small residual apical pneumothorax remains unchanged. There is mild right subcutaneous emphysema. There has been interval development of a small focal infiltrate at the left costophrenic angle. Follow-up recommended. IMPRESSION: 1. Small residual right apical pneumothorax 2. No interval change since 02/24/2019 Interpreted and Authenticated by: Guille Mcgee 02/25/19
[2019-02-25] MEDS: predniSONE 20 MG TABLET PO SCH (09:35)
--- NOTE | 2019-02-25 11:03 | General Surgery Progress Note ---
Subjective Patient reports: feels better, pain is less, flatus, afebrile Narrative: Note initiated : 02/25/19 at 11:01 am Service Date, if different from initiated Date: [] Patient: Samanta Christopher 68 y/o F admitted on 02/24/19 for Pneumothorax. Chief Complaint: [patient is well. She has less chest wall pain. Splinting on the right side is much improved. She has maintained good oxygenation. There is no evidence of air leak at this time. White blood count 11.9, hemoglobin 11 point, and patient panel normal.] Objective Temp Pulse Resp BP Pulse Ox 98.6 F 73 16 127/69 98 02/25/19 07:31 02/25/19 03:48 02/25/19 07:31 02/25/19 07:31 02/25/19 07:31 - Additional Data Intake & Output - Last 24 hours: Intake & Output 02/23/19 02/24/19 02/25/19 02/26/19 05:59 05:59 05:59 05:59 Intake Total 1480 Output Total 666 250 Balance 814 -250 Weight 116 lb 8 oz - General physical appearance moderate distress, moderate pain - Eyes PERRL, normal ocular movement - ENT normal pinna, normal nares, normal mucosa, no hearing loss, no congestion - Neck no masses, no bruits, trachea midline, no lymphadenopathy, no venous distension - Respiratory other (good active breath sounds bilaterally) - Cardiovascular Cardiovascular exam: Present: normal rate and rhythm, RRR, +S1, +S2. Absent: JVD, tachycardia - Abdomen non tender, bowel sounds (present), surgical scars (none), masses (none) - Integumentary no rash, no growths, no abnormal pigmentation - Neurologic normal coordination, normal sensation - Musculoskeletal normal gait, normal posture - Psychiatric oriented to time, oriented to person, oriented to place, speech is normal, memory intact - Labs 02/25/19 03:51 02/25/19 03:51 Diabetes panel 02/25/19 Range/Units 03:51 Sodium 138 (133-145) mmol/L Potassium 3.3 (3.3-5.1) mmol/L Chloride 100 (96-108) mmol/L Carbon Dioxide 26 (22-30) mmol/L BUN 12 (8-23) mg/dl Creatinine 0.7 (0.6-1.1) mg/dl Glucose 87 (70-105) mg/dL Calcium 8.6 (8.6-10.4) mg/dl AST 10 (0-37) U/l ALT 12 (0-40) U/l Alkaline Phosphatase 34 L (39-117) U/L Total Protein 4.9 L (5.9-8.4) gm/dL Albumin 2.6 L (3.2-5.2) gm/dL Triglycerides 74 (<150) mg/dl Calcium panel 02/25/19 Range/Units 03:51 Calcium 8.6 (8.6-10.4) mg/dl Phosphorus 3.5 (2.7-4.5) mg/dL Albumin 2.6 L (3.2-5.2) gm/dL Pituitary panel 02/25/19 Range/Units 03:51 Sodium 138 (133-145) mmol/L Potassium 3.3 (3.3-5.1) mmol/L Chloride 100 (96-108) mmol/L Carbon Dioxide 26 (22-30) mmol/L BUN 12 (8-23) mg/dl Creatinine 0.7 (0.6-1.1) mg/dl Glucose 87 (70-105) mg/dL Calcium 8.6 (8.6-10.4) mg/dl Adrenal panel 02/25/19 Range/Units 03:51 Sodium 138 (133-145) mmol/L Potassium 3.3 (3.3-5.1) mmol/L Chloride 100 (96-108) mmol/L Carbon Dioxide 26 (22-30) mmol/L BUN 12 (8-23) mg/dl Creatinine 0.7 (0.6-1.1) mg/dl Glucose 87 (70-105) mg/dL Calcium 8.6 (8.6-10.4) mg/dl Total Bilirubin 0.3 (0.0-1.0) mg/dL AST 10 (0-37) U/l ALT 12 (0-40) U/l Alkaline Phosphatase 34 L (39-117) U/L Total Protein 4.9 L (5.9-8.4) gm/dL Albumin 2.6 L (3.2-5.2) gm/dL Assessment and Plan (1) Pneumothorax, right Status: Acute Assessment and plan: Continue on wall suction. Follow-up chest x-ray tomorrow. Continue antibiotics Current Visit: Yes (2) Bronchiectasis Status: Chronic Current Visit: No (3) COPD (chronic obstructive pulmonary disease) Status: Chronic Current Visit: No (4) Pneumonia due to Pseudomonas species Status: Acute Current Visit: Yes - Time Spent With Patient Total time spent is greater than 50% in coordination of care (as documented) at patient's floor/unit and/or counseling patient:
[2019-02-25] MEDS ORDERED: SODIUM CHLORIDE FOR INHALATION 3 ML VIAL.NEB INH PRN (16:00)
[2019-02-25] MEDS: traZODone HCL 50 MG TABLET PO PRN (21:17)
[2019-02-26] MEDS: ACETAMINOPHEN 325 MG TABLET PO PRN ×4 (01:49→21:27)
[2019-02-26] MEDS: IPRATROPIUM/ALBUTEROL 3 ML AMPUL.NEB NEB SCH ×4 (01:50→19:11)
[2019-02-26] MEDS: HYDROmorphone 2 MG/ML VIAL IV PRN ×3 (01:56→16:34)
[2019-02-26 05:43] LABS: Basophils # (Auto) 0 K/mcL (0.0-0.3); Basophils % (Auto) 0 % (0.0-2.0); Eosinophils # (Auto) 0.1 K/mcL (0.0-0.7); Eosinophils % (Auto) 0.5 % (0.0-7.0); Granulocytes % (Auto) 87.5 % (38.0-78.0); Lymphocytes # (Auto) 0.7 K/mcL (1.5-4.8); Lymphocytes % (Auto) 6.7 % (15.5-49.0); Mean Cell Volume 89.1 fL (80.0-100.0); Monocytes # (Auto) 0.6 K/mcL (0.1-0.9); Monocytes % (Auto) 5.3 % (1.0-12.0); Platelet Count 340 K/mcL (140-440); RBC 3.91 M/mcL (4.00-5.20); Red Cell Distribution Width 15.1 % (11.5-14.5)
[2019-02-26 06:17] LABS: ALT/SGPT 10 U/l (0-40); Albumin 2.6 gm/dL (3.2-5.2); Albumin/Globulin Ratio 1.2 (1.0-2.3); Alkaline Phosphatase 33 U/L (39-117); Bilirubin,Direct < 0.2 mg/dL (0.0-0.3); Blood Urea Nitrogen 12 mg/dl (8-23); Gamma Glutamyl Transpeptidase 13 U/L (5-36); Uric Acid 2.3 mg/dL (2.5-8.0)
--- NOTE | 2019-02-26 07:09 | XRay Report ---
CLINICAL INFORMATION: Follow-up right pneumothorax TECHNIQUE: AP portable semiupright chest x-ray COMPARISON: Previous examinations dated 02/24/2019, 02/25/2019. FINDINGS: No change in right-sided chest tube position. There is a small residual right apical pneumothorax. Essentially unchanged. There is mild right subcutaneous emphysema. IMPRESSION: 1. Small right apical pneumothorax. Right subcutaneous emphysema 2. No significant interval change since 02/25/2019 Interpreted and Authenticated by: Guille Mcgee 02/26/19
[2019-02-26] MEDS: PANTOPRAZOLE 40 MG TABLET PO SCH (07:44)
[2019-02-26] MEDS: predniSONE 20 MG TABLET PO SCH (07:44)
[2019-02-26] MEDS: 0.9 % SODIUM CHLORIDE 1,000 ML IV SCH (10:12)
--- NOTE | 2019-02-26 15:25 | General Surgery Progress Note ---
Subjective Patient reports: feels better, pain is less, no flatus, bowel movement, afebrile Narrative: Note initiated : 02/26/19 at 3:23 pm Service Date, if different from initiated Date: [] Patient: Samanta Christopher 68 y/o F admitted on 02/24/19 for Pneumothorax. Chief Complaint: [Patient continues to do well. She has no demonstrable air leak. She has a productive cough which has been chronic. It is not exacerba madelyn. Chest x-ray shows lungs to be unchanged with tiny apical pneumothorax on the right, less than 5%.] Objective Temp Pulse Resp BP Pulse Ox 98.8 F 89 16 139/70 95 02/26/19 11:58 02/26/19 13:11 02/26/19 13:11 02/26/19 11:58 02/26/19 11:58 - Additional Data Intake & Output - Last 24 hours: Intake & Output 02/24/19 02/25/19 02/26/19 02/27/19 05:59 05:59 05:59 05:59 Intake Total 1480 3450 3210 Output Total 666 2681 1550 Balance 710 066 4837 Weight 116 lb 8 oz 115 lb - General physical appearance well developed, well nourished, no distress - Eyes PERRL, normal ocular movement - ENT normal pinna, normal nares, normal mucosa, no hearing loss, no congestion - Neck no masses, no bruits, trachea midline, no lymphadenopathy, no venous distension - Respiratory normal expansion, normal respiratory effort, clear to auscultation - Cardiovascular Cardiovascular exam: Present: normal rate and rhythm, RRR, +S1, +S2. Absent: JVD, tachycardia - Abdomen non tender, bowel sounds (present), surgical scars (none), masses (none) - Integumentary no rash, no growths, no abnormal pigmentation - Neurologic normal coordination, normal sensation - Musculoskeletal normal gait, normal posture - Psychiatric oriented to time, oriented to person, oriented to place, speech is normal, memory intact - Labs 02/26/19 04:18 02/26/19 04:18 Diabetes panel 02/26/19 Range/Units 04:18 Sodium 137 (133-145) mmol/L Potassium 3.4 (3.3-5.1) mmol/L Chloride 103 (96-108) mmol/L Carbon Dioxide 24 (22-30) mmol/L BUN 12 (8-23) mg/dl Creatinine 0.6 (0.6-1.1) mg/dl Glucose 111 H (70-105) mg/dL Calcium 8.2 L (8.6-10.4) mg/dl AST 11 (0-37) U/l ALT 10 (0-40) U/l Alkaline Phosphatase 33 L (39-117) U/L Total Protein 4.8 L (5.9-8.4) gm/dL Albumin 2.6 L (3.2-5.2) gm/dL Triglycerides 58 (<150) mg/dl Calcium panel 02/26/19 Range/Units 04:18 Calcium 8.2 L (8.6-10.4) mg/dl Phosphorus 2.4 L (2.7-4.5) mg/dL Albumin 2.6 L (3.2-5.2) gm/dL Pituitary panel 02/26/19 Range/Units 04:18 Sodium 137 (133-145) mmol/L Potassium 3.4 (3.3-5.1) mmol/L Chloride 103 (96-108) mmol/L Carbon Dioxide 24 (22-30) mmol/L BUN 12 (8-23) mg/dl Creatinine 0.6 (0.6-1.1) mg/dl Glucose 111 H (70-105) mg/dL Calcium 8.2 L (8.6-10.4) mg/dl Adrenal panel 02/26/19 Range/Units 04:18 Sodium 137 (133-145) mmol/L Potassium 3.4 (3.3-5.1) mmol/L Chloride 103 (96-108) mmol/L Carbon Dioxide 24 (22-30) mmol/L BUN 12 (8-23) mg/dl Creatinine 0.6 (0.6-1.1) mg/dl Glucose 111 H (70-105) mg/dL Calcium 8.2 L (8.6-10.4) mg/dl Total Bilirubin 0.2 (0.0-1.0) mg/dL AST 11 (0-37) U/l ALT 10 (0-40) U/l Alkaline Phosphatase 33 L (39-117) U/L Total Protein 4.8 L (5.9-8.4) gm/dL Albumin 2.6 L (3.2-5.2) gm/dL Assessment and Plan (1) Pneumothorax, right Status: Acute Assessment and plan: Continue on wall suction. Follow-up chest x-ray tomorrow. Continue antibiotics We'll discontinue suction in the morning and placed to waterseal only with follow-up chest x-ray on Friday. Current Visit: Yes (2) Bronchiectasis Status: Chronic Current Visit: No (3) COPD (chronic obstructive pulmonary disease) Status: Chronic Current Visit: No (4) Pneumonia due to Pseudomonas species Status: Acute Current Visit: Yes - Time Spent With Patient Total time spent is greater than 50% in coordination of care (as documented) at patient's floor/unit and/or counseling patient:
[2019-02-26] MEDS: traZODone HCL 50 MG TABLET PO PRN (21:22)
[2019-02-26] MEDS: DOCUSATE SODIUM 100 MG CAPSULE PO SCH (21:23)
[2019-02-26] MEDS: 0.9 % SODIUM CHLORIDE 10 ML SYRINGE IV SCH (21:27)
[2019-02-27] MEDS: IPRATROPIUM/ALBUTEROL 3 ML AMPUL.NEB NEB SCH ×4 (01:50→18:53)
[2019-02-27] MEDS: predniSONE 10 MG TABLET PO SCH (07:58)
[2019-02-27] MEDS: DOCUSATE SODIUM 100 MG CAPSULE PO SCH ×2 (07:59→20:08)
[2019-02-27] MEDS: ACETAMINOPHEN 325 MG TABLET PO PRN ×3 (08:00→20:07)
[2019-02-27] MEDS: 0.9 % SODIUM CHLORIDE 10 ML SYRINGE IV SCH ×2 (08:02→20:09)
--- NOTE | 2019-02-27 09:28 | XRay Report ---
CLINICAL INFORMATION: History of pneumothorax TECHNIQUE: AP portable semiupright chest x-ray COMPARISON: Previous examinations dated 02/26/2019, 02/25/2019, 02/24/2019 FINDINGS: No change in position of right-sided chest tube. There continues to be a very small right apical pneumothorax, unchanged. No new abnormalities. There is right-sided subcutaneous emphysema. This also appears stable IMPRESSION: Persistent small right apical pneumothorax Interpreted and Authenticated by: Guille Mcgee 02/27/19
--- NOTE | 2019-02-27 14:31 | General Surgery Progress Note ---
Subjective Patient reports: feels better, pain is less, afebrile Narrative: Note initiated : 02/27/19 at 2:29 pm Service Date, if different from initiated Date: [] Patient: Samanta Christopher 68 y/o F admitted on 02/24/19 for Pneumothorax. Chief Complaint: [patient is stable. She has a persistent nonproductive cough. She has mild chest discomfort. Due to the chest tube. She does not have any air leak through her water seal. She's been taken off suction. Chest x-ray shows no change in the very tiny apical airspace on the right.] Objective Temp Pulse Resp BP Pulse Ox 98.1 F 69 16 146/76 93 02/27/19 11:01 02/27/19 13:18 02/27/19 13:18 02/27/19 11:01 02/27/19 11:01 - Additional Data Intake & Output - Last 24 hours: Intake & Output 02/25/19 02/26/19 02/27/19 02/28/19 05:59 05:59 05:59 05:59 Intake Total 1480 3450 5107 1480 Output Total 666 2681 4528 2250 Balance 814 769 579 -770 Weight 116 lb 8 oz 115 lb 125 lb 1.6 oz 125 lb 1.6 oz - General physical appearance well developed, well nourished, no distress - Eyes PERRL, normal ocular movement - ENT normal pinna, normal nares, normal mucosa, no hearing loss, no congestion - Neck no masses, no bruits, trachea midline, no lymphadenopathy, no venous distension - Respiratory normal expansion, normal respiratory effort, other (coarse tubular breath sounds bilaterally) - Cardiovascular Cardiovascular exam: Present: normal rate and rhythm, JVD, RRR, +S1, +S2. Absent: tachycardia - Abdomen non tender, bowel sounds (present), surgical scars (none), masses (none) - Integumentary no rash, no growths, no abnormal pigmentation - Neurologic normal coordination, normal sensation - Musculoskeletal normal gait, normal posture - Psychiatric oriented to time, oriented to person, oriented to place, speech is normal, memory intact - Labs 02/26/19 04:18 02/26/19 04:18 Assessment and Plan (1) Pneumothorax, right Status: Acute Assessment and plan: Discontinue suction Follow-up chest x-ray tomorrow. Continue antibiotics Current Visit: Yes (2) Bronchiectasis Status: Chronic Current Visit: No (3) COPD (chronic obstructive pulmonary disease) Status: Chronic Current Visit: No (4) Pneumonia due to Pseudomonas species Status: Acute Current Visit: Yes - Time Spent With Patient Total time spent is greater than 50% in coordination of care (as documented) at patient's floor/unit and/or counseling patient:
[2019-02-27] MEDS: MAGNESIUM HYDROXIDE 30 ML ORAL.SUSP PO SCH ×3 (14:57→23:49)
[2019-02-27] MEDS ORDERED: POTASSIUM PHOSPHATE 40 MEQ in DEXTROSE 5% IN WATER 500 ML IV ONE (15:00)
--- NOTE | 2019-02-27 17:01 | XRay Report ---
INDICATION: PICC line placement TECHNIQUE: AP chest x-ray,portable semiupright COMPARISON: Multiple previous examinations. Most recent examinations dated 02/27/2019 FINDINGS:No change in right chest tube position. Interval placement of a right-sided PICC line. Tip is in the superior vena cava in good position. Right apical pneumothorax is again identified. This appears slightly larger than on previous examination. This may be related to patient position. Follow-up radiographs recommended. IMPRESSION: 1. Right-sided PICC line in the superior vena cava 2. Small right apical pneumothorax appears slightly larger than on previous examination. Follow-up recommended Interpreted and Authenticated by: Guille Mcgee 02/27/19
[2019-02-27] MEDS: traZODone HCL 50 MG TABLET PO PRN (21:18)
[2019-02-28] MEDS: IPRATROPIUM/ALBUTEROL 3 ML AMPUL.NEB NEB SCH ×4 (01:44→18:42)
[2019-02-28] MEDS: ACETAMINOPHEN 325 MG TABLET PO PRN ×3 (02:03→14:32)
[2019-02-28] MEDS: 0.9 % SODIUM CHLORIDE 10 ML SYRINGE IV SCH ×2 (08:00→21:28)
[2019-02-28] MEDS: DOCUSATE SODIUM 100 MG CAPSULE PO SCH ×2 (08:02→21:28)
[2019-02-28] MEDS: predniSONE 10 MG TABLET PO SCH (08:02)
--- NOTE | 2019-02-28 09:59 | XRay Report ---
CLINICAL INFORMATION: Follow-up pneumothorax TECHNIQUE: AP upright portable chest x-ray COMPARISON: Previous examinations dated 02/27/2019 and 02/26/2019 FINDINGS: No change in position of right sided chest tube or right PICC line. There is increased right subcutaneous emphysema. There is a small right apical pneumothorax. No definite interval change. IMPRESSION: No change in small right apical pneumothorax Interpreted and Authenticated by: Guille Mcgee 02/28/19
--- NOTE | 2019-02-28 14:18 | General Surgery Progress Note ---
Subjective Narrative: Note initiated : 02/28/19 at 2:16 pm Service Date, if different from initiated Date: [] Patient: Samanta Christopher 68 y/o F admitted on 02/24/19 for Pneumothorax. Chief Complaint: [Patient is stable. She does not have any increased respiratory distress. Her chest x-ray is unchanged on waterseal only. There is no increased in this very tiny apical airspace. She does not have any air leak.] Objective Temp Pulse Resp BP Pulse Ox 98.2 F 90 18 119/70 94 02/28/19 11:51 02/28/19 13:00 02/28/19 13:00 02/28/19 11:51 02/28/19 11:51 - Additional Data Intake & Output - Last 24 hours: Intake & Output 02/26/19 02/27/19 02/28/19 03/01/19 05:59 05:59 05:59 05:59 Intake Total 3450 5107 3929.0909 480 Output Total 2681 4528 4435 401 Balance 769 579 -505.9091 79 Weight 115 lb 125 lb 1.6 oz 120 lb 11.2 oz - Labs 02/26/19 04:18 02/26/19 04:18 Assessment and Plan (1) Pneumothorax, right Status: Acute Assessment and plan: Chest tube removed Follow-up chest x-ray tomorrow. No Current Visit: Yes (2) Bronchiectasis Status: Chronic Current Visit: No (3) COPD (chronic obstructive pulmonary disease) Status: Chronic Current Visit: No (4) Pneumonia due to Pseudomonas species Status: Acute Current Visit: Yes - Time Spent With Patient Total time spent is greater than 50% in coordination of care (as documented) at patient's floor/unit and/or counseling patient:
[2019-02-28] MEDS: traZODone HCL 50 MG TABLET PO PRN (21:28)
[2019-03-01] MEDS: IPRATROPIUM/ALBUTEROL 3 ML AMPUL.NEB NEB SCH ×3 (01:25→13:08)
[2019-03-01] MEDS: predniSONE 10 MG TABLET PO SCH (08:19)
[2019-03-01] MEDS: DOCUSATE SODIUM 100 MG CAPSULE PO SCH (08:19)
[2019-03-01] MEDS: 0.9 % SODIUM CHLORIDE 10 ML SYRINGE IV SCH (08:20)
--- NOTE | 2019-03-01 09:35 | XRay Report ---
CLINICAL INFORMATION: follow-up right pneumothorax COMPARISON: 02/28/2019 FINDINGS: Right chest tube now out. There is a tiny residual right apical pneumothorax that is less than 3%. Minimal patchy airspace disease in the right upper and lower lungs has improved and likely atelectasis or contusion. No significant effusion. Subcutaneous emphysema right lateral chest wall is unchanged. Heart size, mediastinum and pulmonary vessels are normal. PICC line remains in stable position. IMPRESSION: Right chest tube now - tiny residual right apical pneumothorax. No hemothorax. Interpreted and Authenticated by: Guille Alejandro 03/01/19
--- NOTE | 2019-03-01 16:20 | Discharge Summary ---
Providers - Providers Patient information: Note initiated : 03/01/19 at 4:15 pm Service Date, if different from initiated Date: [] Patient: Samanta Christopher 68 y/o F admitted on 02/24/19 for Pneumothorax. Chief Complaint: [] Date of admission: 02/24/19 Discharge date: 03/01/19 Attending physician: Anca Sinha Hospitalization Hospital course: 68-year-old female with a history of acute spontaneous pneumothorax right chest. Patient has a long history of severe bacterial lung infection. 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 She also had allergic bronchopulmonary aspergillosis. She now has chronic bronchiectasis with secondary infection with Pseudomonas. She awakened on the morning of admission with increased coughing followed by severe chest pain. Because of increasing chest pain. She was seen in the emergency room where it was noted that she had this 35% pneumothorax. She was counseled for right closed tube thoracostomy and this was performed at the bedside. Post thoracostomy . The lung expanded except for the first small apical pneumothorax. She has done well. Her chest tube was placed on waterseal only on yesterday. Follow-up chest x-ray today shows full expansion except for pneumothorax at the apex, less than 3%. Patient has good lungs sounds and has good aeration. She is stable for discharge home. Arrangements will be made for her to have cefotazadine twice daily for 9 more days. Discharge diagnosis: spontaneous right pneumothorax Secondary discharge diagnosis: Bronchiectasis with Pseudomonas secondary infection. Chronic obstructive lung disease. Reason for admission: right-sided chest pain with increasing shortness of breath Procedures: Right closed tube thoracostomy Pertinent studies/significant findings: None Complications: None Exam Temp Pulse Resp BP Pulse Ox 98.3 F 88 18 129/72 94 03/01/19 12:00 03/01/19 12:00 03/01/19 12:00 03/01/19 12:00 03/01/19 12:00 - General physical appearance well developed, well nourished, no distress - Eyes PERRL, normal ocular movement - ENT normal pinna, normal nares, normal mucosa, no hearing loss, no congestion - Head Head exam IM: Present: atraumatic, normocephalic - Neck no masses, no bruits, trachea midline, no lymphadenopathy, no venous distension - Cardiovascular Cardiovascular exam IM: Present: normal rate and rhythm - Respiratory normal expansion, normal respiratory effort, other (few coarse tubular breath sounds but no wheezes) - Abdomen Abdomen: Present: soft, non tender, bowel sounds Hernia: Present: none - Genitourinary Present: normal external genitalia - Integumentary Present: no rash, no growths, no abnormal pigmentation - Neurologic Present: normal coordination, normal sensation - Musculoskeletal Present: normal gait, normal posture - Psychiatric Present: oriented to time, oriented to person, oriented to place, speech is normal, memory intact Discharge Plan - Patient/Caregiver Discharge Instructions Activity: increase activity as tolerated Diet: Regular Diet - Follow up Plan Follow up with: Anca Sinha MD [Physician] - 03/09/19 8:45 am Brooklynn Noble DO [Primary Care Provider] - Disposition: Home, Self-Care Prognosis: Good Rehab Potential: Good I certify that the patient requires SNF services.: No Overall status at discharge: patient is progressing back to baseline (is resolving) Pending Studies Resuscitation Status Full Code Diet Full Liquid Diet Start FriFebruary 24 170 Acetaminophen (Tylenol) 650 mg PO Q6HP PRN PRN Reason: PAIN/FEVER > 101 Last Admin: 02/28/19 14:32 Dose: 650 mg Documented by: WILBERTO Cosigned by: LAN Admin: 02/28/19 08:00 Dose: 650 mg Documented by: WILBERTO Cosigned by: LAN Admin: 02/28/19 02:03 Dose: 650 mg Documented by: Admin: 02/27/19 20:07 Dose: 650 mg Documented by: Admin: 02/27/19 13:51 Dose: 650 mg Documented by: WILBERTO Cosigned by: LAN Admin: 02/27/19 08:00 Dose: 650 mg Documented by: WILBERTO Cosigned by: LAN Admin: 02/26/19 21:27 Dose: 650 mg Documented by: Admin: 02/26/19 15:16 Dose: 650 mg Documented by: Admin: 02/26/19 07:45 Dose: 650 mg Documented by: CRISTI Cosigned by: MARCY Admin: 02/26/19 01:49 Dose: 650 mg Documented by: Admin: 05/09/19 19:51 Dose: 650 mg Documented by: Admin: 02/25/19 13:09 Dose: 650 mg Documented by: Admin: 02/25/19 07:17 Dose: 650 mg Documented by: Admin: 02/25/19 00:56 Dose: 650 mg Documented by: HERMELINDA Albuterol/Ipratropium (Duoneb) 3 ml NEB Q6HRT [facility] Admin: 03/01/19 13:08 Dose: Not Given Documented by: Admin: 03/01/19 07:08 Dose: 3 ml Documented by: Admin: 03/01/19 01:25 Dose: Not Given Documented by: Admin: 02/28/19 18:42 Dose: 3 ml Documented by: Admin: 02/28/19 12:59 Dose: 3 ml Documented by: Admin: 02/28/19 07:27 Dose: 3 ml Documented by: Admin: 02/28/19 01:44 Dose: 3 ml Documented by: Admin: 02/27/19 18:53 Dose: 3 ml Documented by: Admin: 02/27/19 13:10 Dose: 3 ml Documented by: Admin: 02/27/19 07:33 Dose: 3 ml Documented by: Admin: 02/27/19 01:50 Dose: 3 ml Documented by: Admin: 02/26/19 19:11 Dose: 3 ml Documented by: Admin: 02/26/19 13:08 Dose: 3 ml Documented by: Admin: 02/26/19 07:41 Dose: 3 ml Documented by: Admin: 02/26/19 01:50 Dose: 3 ml Documented by: Admin: 02/25/19 19:53 Dose: 3 ml Documented by: Admin: 02/25/19 13:11 Dose: 3 ml Documented by: Admin: 02/25/19 08:27 Dose: Not Given Documented by: Admin: 02/25/19 00:30 Dose: 3 ml Documented by: Admin: 02/24/19 19:41 Dose: 3 ml Documented by: CHAIM Ceftazidime (Fortaz) 2 gm IV Q12H [facility] Admin: 03/01/19 08:19 Dose: 2 gm Documented by: Admin: 02/28/19 21:28 Dose: 2 gm Documented by: Admin: 02/28/19 07:59 Dose: 2 gm Documented by: WILBERTO Cosigned by: LAN Admin: 02/27/19 20:08 Dose: 2 gm Documented by: Admin: 02/27/19 07:57 Dose: 2 gm Documented by: WILBERTO Cosigned by: LAN Admin: 02/26/19 21:43 Dose: 2 gm Documented by: Admin: 02/26/19 11:06 Dose: 2 gm Documented by: Admin: 02/25/19 21:18 Dose: 2 gm Documented by: Admin: 02/25/19 09:39 Dose: 2 gm Documented by: Admin: 02/24/19 21:15 Dose: 2 gm Documented by: HERMELINDA Docusate Sodium (Colace) 100 mg PO BID [facility] Admin: 03/01/19 08:19 Dose: 100 mg Documented by: Admin: 02/28/19 21:28 Dose: 100 mg Documented by: Admin: 02/28/19 08:02 Dose: 100 mg Documented by: WILBERTO Cosigned by: LAN Admin: 02/27/19 20:08 Dose: 100 mg Documented by: Admin: 02/27/19 07:59 Dose: 100 mg Documented by: WILBERTO Cosigned by: LAN Admin: 02/26/19 21:23 Dose: 100 mg Documented by: JOHN Heparin Sodium (Porcine) (Heparin Flush) 2 ml IV Q12 [facility] Admin: 03/01/19 08:20 Dose: 2 ml Documented by: Admin: 02/28/19 21:29 Dose: 2 ml Documented by: Admin: 02/28/19 07:59 Dose: 2 ml Documented by: WILBERTO Cosigned by: LAN Admin: 02/27/19 20:08 Dose: 2 ml Documented by: Admin: 02/27/19 08:02 Dose: Not Given Documented by: Admin: 02/26/19 21:28 Dose: Not Given Documented by: JOHN Hydromorphone HCl (Dilaudid) 0.5 mg IV Q2HP PRN PRN Reason: PAIN LEVEL > 6 Last Admin: 02/26/19 16:34 Dose: 0.5 mg Documented by: Admin: 02/26/19 07:48 Dose: 0.5 mg Documented by: Admin: 02/26/19 01:56 Dose: 0.5 mg Documented by: Admin: 02/25/19 21:15 Dose: 0.5 mg Documented by: Admin: 02/25/19 18:34 Dose: 0.5 mg Documented by: Admin: 02/25/19 13:08 Dose: 0.5 mg Documented by: Admin: 02/25/19 10:56 Dose: 0.5 mg Documented by: Admin: 02/25/19 07:13 Dose: 0.5 mg Documented by: Admin: 02/25/19 04:31 Dose: 0.5 mg Documented by: Admin: 02/25/19 00:30 Dose: 0.5 mg Documented by: Admin: 02/24/19 21:32 Dose: 0.5 mg Documented by: HERMELINDA Prednisone (Prednisone) 30 mg PO [facility] Last Admin: 03/01/19 08:19 Dose: 30 mg Documented by: Admin: 02/28/19 08:02 Dose: 30 mg Documented by: WILBERTO Cosigned by: LAN Admin: 02/27/19 07:58 Dose: 30 mg Documented by: WILBERTO Camejoigned by: LAN Sodium Chloride (Saline Flush) 10 ml IV Q12 [facility] Last Admin: 03/01/19 08:20 Dose: 10 ml Documented by: Admin: 02/28/19 21:28 Dose: 10 ml Documented by: Admin: 02/28/19 08:00 Dose: 10 ml Documented by: WILBERTO Cosigned by: LAN Admin: 02/27/19 20:09 Dose: 10 ml Documented by: Admin: 02/27/19 08:02 Dose: 10 ml Documented by: WILBERTO Cosigned by: LAN Admin: 02/26/19 21:27 Dose: 10 ml Documented by: JOHN Trazodone HCl (Desyrel) 0 mg PO HSP PRN PRN Reason: Insomnia Last Admin: 02/28/19 21:28 Dose: 100 mg Documented by: Admin: 02/27/19 21:18 Dose: 50 mg Documented by: Admin: 02/26/19 21:22 Dose: 50 mg Documented by: Admin: 02/25/19 21:17 Dose: 50 mg Documented by: Admin: 02/24/19 21:40 Dose: 50 mg Documented by: NSTOVER Shift Summary 03/01/19 04:34 Shift Summary by Nirali Gallegos Patient slept well this shift. Denies any pain. PICC line on KATELIN, single lumen. Flushes well and with good blood return. PICC dressing was changed yesterday 02/28/2019. On full liquid diet. Up ad shimon in room. Steady on her feet. Previous chest tube site on right lateral side- dressing CDI. (xerofoam, gauze and silk tape). Crepitus still noted around site on palpation. Pleural rub on RUL and RLL noted on auscultation. No BM this shift. Passing flatus. VSS. For possible discharge today and will have OP antibiotics. Initialized on 03/01/19 04:34 - END OF NOTE
== END 2019-03-01 17:32 | disposition home or self-care (01) | DRG 199 ==
LOC: ED 07:46 → MEDSUR 14:52
PROVIDERS: ADMIT Family Medicine Adult Medicine; ATTEND Family Medicine Adult Medicine